=== PATIENT | female | born 1940 | race Caucasian/White ===

== ENCOUNTER 2020-07-17 01:11 | Outpatient (CLI) | payer MEDICARE, SELFPAY ==
[2020-07-18 14:16] LABS: SARS-CoV-2 RNA PCR Negative
== END 2020-07-17 01:12 | disposition home or self-care (01) ==
LOC: ANHCOVIDDT 01:11
PROVIDERS: PCP Family Medicine; Visit Provider Internal Medicine Gastroenterology
DX: Z01.818 Encounter for other preprocedural examination (principal); Z20.828 Contact with and (suspected) exposure to other viral communicable diseases
CPT/HCPCS: 87635; C9803; U0003

== ENCOUNTER 2020-07-20 00:50 | Day surgery (SDC) | payer MEDICARE, SELFPAY ==
[2020-07-16 13:56] VITALS: BMI 26.6
--- NOTE | 2020-07-20 11:38 | P.PNAN_ITS ---
Anes - Initial Pre Proc Eval Procedure: Operation Date: 07/20/20 12:45 Proposed Procedures p Esophagogastroduodenoscopy & Screening Colonoscopy - Trenton Casanova MD Date/Time: 07/20/20 11:38 Surgeon: Trenton Salazar MD Pre Op Diagnosis: Dysphagia/ Neoplasm Screening Patient Data Age: 79 Gender: F Height: 5 ft 5 in Weight: 72.7 kg Allergies Allergy/AdvReac Type Severity Reaction Status Date / Time No Known Allergies Allergy Verified 06/17/20 12:34 Home Medications Medication Instructions Recorded Confirmed Type amitriptyline 25 mg tablet 25 mg PO .At Bedtime #60 tablet 12/16/19 07/16/20 Rx losartan 50 mg tablet 50 mg PO DAILY #90 tablet 03/01/20 07/16/20 Rx peg 3350-electrolytes 236 240 ml PO Q10M #4000 ml 06/17/20 Rx gram-22.74 gram-6.74 gram-5.86 gram solution calcium carbonate-vitamin D3 1 tablet PO DAILY 07/16/20 07/16/20 History [Caltrate 600 plus D] mv-mn-folic ac-vit K-herb 289 1 tablet PO DAILY 07/16/20 07/16/20 History [Alive Once Daily Women 50 Plus] Patient hx anesthesia problems: none Family hx anesthesia problems: none PMFSH Past Medical History Medical History (System 06/17/20 @ 12:34 by Yovana Cunningham) Chronic renal failure, stage 3 (moderate) Encounter for colonoscopy due to history of colonic polyp Hiatal hernia Hypertension Peripheral neuropathy Surgical History Surgical History (System 06/17/20 @ 12:34 by Yovana Cunningham) History of hysterectomy 05-02-2017 History of left knee surgery 01-12-2015 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 Family History Family History Father Diabetes mellitus Lung cancer Mother Acute myocardial infarction Social History Social History (System 06/17/20 @ 12:34 by Yovana Cunningham) Smoking status: Never smoker Alcohol intake: never Substance use: never Substance use type: does not use Living arrangements: alone Spiritual care concerns: No Anes - Eval Final PreProcedure Day of Procedure 11/24/20 11:38 Patient weight: overweight Heart: regular rate and rhythm Lungs: clear to auscultation Airway: Mallampati scale class II Neurological: alert and oriented ASA classification: III Emergent: no Anesthetic plan: proceed Anesthesia type and monitoring: general GIVS and standard monitoring Informed Consent: The patient's anesthetic plan and its attendant risks and benefits were discussed with the patient/family/POA. Questions were solicited and answers provided to the satisfaction of the patient/family/POA.
[2020-07-20 11:54] VITALS: BP 132/68; PULSE 80; RESP 20; TEMP 36.2; O2SAT 97; BMI 27.6
[2020-07-20] MEDS: LACTATED RINGERS 1,000 ML 150 ML IV CONT (12:01)
--- NOTE | 2020-07-20 12:06 | PM.HPGS ---
History of Present Illness History of Present Illness Consent: Risks, benefits, and alternatives have been discussed and questions answered. Patient agrees to proceed with procedure. Chief complaint: Dysphagia/ Neoplasm Screening Narrative: Berkley Wagoner is a 79 year old female with dysphagia to solids, also colon polyp 5 years ago. Review of Systems Constitutional: Constitutional: Denies headache(s) and Denies weakness Eyes: Eyes: Denies blurry vision ENT: Reports Normal hearing present, Denies headache(s) and Denies neck pain Cardiovascular: Cardiovascular: Denies chest pain and Denies dyspnea Respiratory: Respiratory: Denies dyspnea Gastrointestinal: Gastrointestinal: Reports no additional gastrointestinal complaints Genitourinary: Genitourinary: Denies dysuria Musculoskeletal: Musculoskeletal: Denies neck pain Integumentary/Breasts: Skin/Breast: Denies dry skin Neurologic: Reports Normal hearing present, Denies headache(s) and Denies weakness Psychiatric: Psychiatric: Denies anxiety Endocrine: Endocrine: Denies change in body appearance Hematologic/Lymphatic: Hematologic/Lymphatic: Denies easy bleeding Allergic/Immunologic: Allergic/Immunologic: Denies urticaria PMF Past Medical History Medical History (Updated 07/20/20 @ 12:06 by Trenton Salazar MD) Chronic renal failure, stage 3 (moderate) Dysphagia Encounter for colonoscopy due to history of colonic polyp Hiatal hernia Hypertension Peripheral neuropathy Surgical History Surgical History (System 06/17/20 @ 12:34 by Yovana Cunningham) History of hysterectomy 05-02-2017 History of left knee surgery 01-12-2015 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 Family History Family History Father Diabetes mellitus Lung cancer Mother Acute myocardial infarction Social History Social History (System 06/17/20 @ 12:34 by Yovana Cunningham) Smoking status: Never smoker Alcohol intake: never Substance use: never Substance use type: does not use Living arrangements: alone Spiritual care concerns: No Meds Home Medications and Allergies Home Medications Medication Instructions Recorded Confirmed Type amitriptyline 25 mg tablet 25 mg PO .At Bedtime #60 tablet 12/16/19 07/16/20 Rx losartan 50 mg tablet 50 mg PO DAILY #90 tablet 03/01/20 07/16/20 Rx peg 3350-electrolytes 236 240 ml PO Q10M #4000 ml 06/17/20 Rx gram-22.74 gram-6.74 gram-5.86 gram solution calcium carbonate-vitamin D3 1 tablet PO DAILY 07/16/20 07/16/20 History [Caltrate 600 plus D] mv-mn-folic ac-vit K-herb 289 1 tablet PO DAILY 07/16/20 07/16/20 History [Alive Once Daily Women 50 Plus] Allergies Allergy/AdvReac Type Severity Reaction Status Date / Time No Known Allergies Allergy Verified 07/20/20 11:53 Vital Signs Vital Signs - 24 hr 07/20/20 11:54 Temperature 97.1 F L Pulse Rate 80 Respiratory Rate 20 Blood Pressure 132/68 Pulse Oximetry 97 Exam Const: General: comfortable and no acute distress HENMT: General nose exam: Normal nares present Eyes: General: appearance normal, both eyes and all related structures Neck: Neck: no JVD Resp: Auscultation: clear to auscultation bilaterally Cardio: Rate: regular rate Rhythm: regular rhythm GI: Inspection: non-distended GI Palp: Yes Soft to palpation Skin: General skin exam: normal color Neuro: General: gait normal Speech: normal speech Extrem: General: normal to inspection Psych: Mental Status: mental status grossly normal Assessment and Plan Assessment and plan (1) Dysphagia: Code(s): R13.10 - Dysphagia, unspecified Status: Acute Assessment and Plan: will proceed with egd and possible dilation (2) Encounter for colonoscopy due to history of colonic polyp: Code(s): Z12.11 - Encounter for screening for sabas
[2020-07-20] MEDS: BENZOCAINE (*SP) 60 ML SPRAY CAN (HURRICAINE) 1 SPRAY MUCOUS MEM (12:08)
[2020-07-20 12:48] VITALS: BP 101/66; PULSE 78; RESP 24; O2SAT 94
[2020-07-20 12:58] VITALS: BP 105/56; PULSE 62; RESP 16; O2SAT 94
[2020-07-20 13:08] VITALS: BP 113/72; PULSE 60; RESP 18; O2SAT 95
[2020-07-20 13:18] VITALS: BP 124/79; PULSE 62; RESP 18; O2SAT 98
== END 2020-07-20 13:40 | disposition home or self-care (01) ==
PROVIDERS: PCP Family Medicine; Visit Provider Internal Medicine Gastroenterology
PROC: 0DJ08ZZ Inspection of Upper Intestinal Tract, Via Natural or Artificial Opening Endoscopic (ICD-10-PCS; CPT 43235; principal; 2020-07-20 12:45)
DX: Z12.11 Encounter for screening for malignant neoplasm of colon (principal); R13.10 Dysphagia, unspecified; K63.5 Polyp of colon; K29.50 Unspecified chronic gastritis without bleeding; K62.3 Rectal prolapse; K57.30 Diverticulosis of large intestine without perforation or abscess without bleeding; K22.2 Esophageal obstruction; K44.9 Diaphragmatic hernia without obstruction or gangrene; I12.9 Hypertensive chronic kidney disease with stage 1 through stage 4 chronic kidney disease, or unspecified chronic kidney disease; N18.30 Chronic kidney disease, stage 3 unspecified; G62.9 Polyneuropathy, unspecified; Z96.651 Presence of right artificial knee joint
CPT/HCPCS: 45385; 43239; 88305; C9803; J2704; J7120; U0003

== ENCOUNTER 2020-10-19 11:08 | Outpatient (NON) | payer MEDICARE, SELFPAY | END 2020-10-19 11:09 | PROVIDERS: PCP Nurse Practitioner Family; Visit Provider Nurse Practitioner Family | DX: R32 Unspecified urinary incontinence (principal) | CPT/HCPCS: 87077; 87086; 87088; 87186 ==

== ENCOUNTER 2020-12-01 09:21 | Outpatient (CLI) | payer MEDICARE, SELFPAY ==
--- NOTE | ~2020-12-01 | US_ITS ---
EXAMINATION: US venous doppler [facility] DATE: 12/01/2020 10:17 INDICATION: Lower limb pain. TECHNIQUE: Grayscale ultrasound images without and with compression and Doppler ultrasound images of the bilateral lower extremity veins were obtained. COMPARISON: None. FINDINGS: The visualized portions of right common femoral vein, profunda (deep) femoral vein, femoral vein, pop liteal vein, peroneal veins, posterior tibial veins, and greater saphenous vein outflow are patent. The visualized portions of left common femoral vein, profunda femoral vein, femoral vein, popliteal v ein, peroneal veins, posterior tibial veins, and greater saphenous vein outflow are patent. IMPRESSION: 1. No deep venous thrombosis. Reviewed, dictated and finalized at location A.
== END 2020-12-01 09:22 | disposition home or self-care (01) ==
LOC: CHSIMG 09:23
PROVIDERS: PCP Family Medicine; Visit Provider Family Medicine
DX: M79.661 Pain in right lower leg (principal); M79.662 Pain in left lower leg
CPT/HCPCS: 93970

== ENCOUNTER 2020-12-16 11:26 | Outpatient (CLI) | payer MEDICARE, SELFPAY ==
[2020-12-16 13:00] LABS: Alanine Aminotransferase 75 U/L (14-59); Albumin Level 3.3 g/dL (3.4-5.0); Alkaline Phosphatase 99 U/L (46-116); Anion Gap 7 mmol/L (8-16); Aspartate Amino Transferase 28 U/L (15-37); Bilirubin,Total 0.5 mg/dL (0.00-1.00); Blood Urea Nitrogen 23 mg/dL (7-18); Carbon Dioxide 30 mmol/L (21-32); Chloride 107 mmol/L (98-108); Estimated Glomerular Filt Rate 45; Glucose 90 mg/dL (70-99); Osmolality Calculated 301 mOsm/kg (285-295); Potassium 4.1 mmol/L (3.5-5.1); Sodium 144 mmol/L (136-145); Total Protein 6.7 g/dL (6.4-8.2)
== END 2020-12-16 11:27 | disposition home or self-care (01) ==
LOC: CHSLAB 11:28
PROVIDERS: PCP Nurse Practitioner Family; Visit Provider Nurse Practitioner Family
DX: N18.30 Chronic kidney disease, stage 3 unspecified (principal)
CPT/HCPCS: 36415; 80053

== ENCOUNTER 2021-02-07 10:45 | Outpatient (CLI) | payer MEDICARE, SELFPAY ==
--- NOTE | 2021-02-07 10:53 | ECG_ITS ---
Measurements Intervals [place] Rate: 51 P: 54 IN: 244 QRS: 51 QRSD: 131 T: 23 QT: 456 QTc: 422 Interpretive Statements SINUS BRADYCARDIA WITH SINUS ARRHYTHMIA WITH FIRST DEGREE AV BLOCK RIGHT BUNDLE BRANCH BLOCK BASELINE WANDER- V6 ABNORMAL ECG Electronically Signed On 02-07-2021 11:46:53 CDT by Rudi Hanna D.O.
[2021-02-07 10:58] LABS: Basophils Absolute Auto 0.06 K/mm3 (0.00-0.10); Basophils Percent Auto 0.9 % (0.0-1.0); Eosinophils Absolute Auto 0.41 K/mm3 (0.02-0.50); Eosinophils Percent Auto 6.3 % (1.0-6.0); Hematocrit 39.8 % (35.0-42.0); Hemoglobin 13.1 g/dL (11.7-13.8); Immature Granulocyte Absolute 0.02 K/mm3 (0.00-0.00); Immature Granulocyte Percent A 0.3 % (0.0-0.0); Lymphocytes Absolute Auto 0.65 K/mm3 (1.10-4.50); Mean Corpuscular HGB Conc 32.9 g/dL (32.0-36.0); Mean Corpuscular Hemoglobin 28.2 pg (27.0-31.0); Mean Corpuscular Volume 85.8 fL (78.0-102.0); Mean Platelet Volume 8.8 fl (9.2-11.8); Monocytes Absolute Auto 0.41 K/mm3 (0.10-0.90); Monocytes Percent Auto 6.3 % (2.0-11.0); Neutrophils Absolute Auto 4.9 K/mm3 (1.7-7.2); Neutrophils Percent Auto 76.2 % (50.0-70.0); Platelet Count Result 267 K/mm3 (150-420); Red Blood Count 4.64 M/mm3 (4.20-5.40); Red Cell Distribution Width 12.9 % (11.6-14.4); White Blood Count 6.5 K/mm3 (4.8-10.8)
[2021-02-07 11:22] LABS: Troponin I 52.3 ng/L (0.00-60.4)
[2021-02-07 11:23] LABS: Alanine Aminotransferase 20 U/L (14-59); Albumin Level 3.6 g/dL (3.4-5.0); Alkaline Phosphatase 104 U/L (46-116); Anion Gap 9 mmol/L (8-16); Aspartate Amino Transferase 18 U/L (15-37); Bilirubin,Total 0.7 mg/dL (0.00-1.00); Blood Urea Nitrogen 26 mg/dL (7-18); Calcium 8.8 mg/dL (8.5-10.1); Carbon Dioxide 27 mmol/L (21-32); Chloride 107 mmol/L (98-108); Estimated Glomerular Filt Rate 43; Glucose 95 mg/dL (70-99); Osmolality Calculated 300 mOsm/kg (285-295); Potassium 4.4 mmol/L (3.5-5.1); Sodium 143 mmol/L (136-145)
== END 2021-02-07 10:46 | disposition home or self-care (01) ==
LOC: CHSCARD 10:48
PROVIDERS: PCP Nurse Practitioner Family; Visit Provider Nurse Practitioner Family
DX: R07.9 Chest pain, unspecified (principal)
CPT/HCPCS: 36415; 80053; 82553; 84484; 85025; 93005

== ENCOUNTER 2021-02-10 12:25 | Outpatient (CLI) | payer MEDICARE, SELFPAY ==
--- NOTE | ~2021-02-10 | US_ITS ---
US arterial ankle brachial ind INDICATION: Hypertension. TECHNIQUE: Segmental pressures and plethysmographic and Doppler waveforms of the brachial and lower e xtremity arteries were obtained. COMPARISON: None. FINDINGS: Right and left brachial artery pressures of 151 mm Hg and 145 mm Hg, respectively, are concordant (no rmal difference <= 30 mmHg). The right ankle-brachial index (KAEL) is 1.07 (normal >= 0.9-1.0). The right great toe-brachial index (TBI) is 0.61 (normal >= 0.60). The left KAEL is 1.25. The left TBI is 0.63. IMPRESSION: 1. Normal bilateral ankle and toe brachial indices. Reviewed, dictated and finalized at location A.
== END 2021-02-10 12:26 | disposition home or self-care (01) ==
PROVIDERS: PCP Nurse Practitioner Family; Visit Provider Nurse Practitioner Family
DX: R09.89 Other specified symptoms and signs involving the circulatory and respiratory systems (principal)
CPT/HCPCS: 93922

== ENCOUNTER 2021-03-01 14:30 | Outpatient (RCR) | payer MEDICARE, SELFPAY ==
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
--- NOTE | 2021-03-01 15:20 | PTOPEVAL ---
PHYSICAL THERAPY DISCHARGE SUMMARY Thank you for referring Berkley Wagoner to [facility] [place].? Berkley has been seen x 5 visits in PT. She has met all goals set and ready for d/c from PT to HEP. I agree with Berkley's discharge from PT. Referring Physician Date Admitting Provider: Attending Provider: Colin Osborne Referring Provider: Therapy Assessment Status Assessment Status Assessment Status Discharge Evaluation Information Problem Diagnosis incontinence of feces Subjective Information Berkley reports that she is Query Text:As Reported By Patient/ doing so well - that there Family has been a big difference with urinary and fecal control since initiating PT. She reports only getting up 1x/ night for urination. If she is staying home - she goes without an urinary incontinence pad. She has been able to utilize urge strategies to prevent urge incontinence. Pain Assessment Timing of Pain Assessment Timing of Pain Assessment Assessment Self Report Self Report Pain Level 0 Pelvic Health Evaluation Pelvic Floor Assessment Permission Received for External/ only did external observation Internal Perineal Exam this date Sustained Levator Ani Strength at least 3/5 - able to hold x 10 counts or greater x 10 reps Quick Levator Ani Contraction in 15 14 Seconds Additional Comments independent with HEP PT Clinical Summary Clinical Summary Protocol: PTEVCODE PT Clinical Summary Urinary Distress Inventory 6 - 5.6% Colorectal-Anal Distress Inventory 8 - 8.3% Berkley has met all goals set in PT. She has progressed with her exercise level and is not able to use abdominal resistance with pelvic floor contraction. She is only getting up 1 time/night for urination, no longer using a pad at home but still wears one going out - just in case, and able to perform urge strategies to delay urination until she gets to the toilet. She is ready for d/c from PT to HEP.
== END 2021-03-02 13:03 | disposition home or self-care (01) ==
LOC: ANHPT 14:30
PROVIDERS: PCP Nurse Practitioner Family
DX: R15.9 Full incontinence of feces (principal)
CPT/HCPCS: 97110; 97162

== ENCOUNTER 2021-06-09 12:16 | Outpatient (CLI) | payer MEDICARE, SELFPAY ==
--- NOTE | ~2021-06-09 | XR_ITS ---
XR_CERV2-3V_CR DATE: 06/09/2021 13:38 INDICATION: Neck pain TECHNIQUE: AP, open-mouth, odontoid and lateral views COMPARISON: None FINDINGS: There is diffuse osteopenia. There is reversal of cervical curvature. There is 2.5 mm anterolisthesis at C2-3 and mild degenerative disc disease. There is severe degenerative disc disease and 2 mm retrolisthesis at C3-4. There is moderately severe degenerative disc disease at C4-5, C5-6 and C6-7. C1 and C2 are normally aligned and the odontoid process is intact. No fracture or dislocation or lock ed facet or prevertebral soft tissue swelling. There is extensive degenerative change of the apophyseal and uncovertebral joints throughout the cerv ical spine. IMPRESSION: Reversal of cervical curvature 2.5 mm anterolisthesis at C2-3 2 mm retrolisthesis at C3-4 Mild degenerative disc disease at C2-3 Severe degenerative disc disease at C3-4 Moderately severe degenerative disc disease at C4-5, C5-6 and C6-7 Extensive degenerative changes apophyseal joints and uncovertebral joints Osteopenia Reviewed, dictated and finalized at Location A. Reviewed, dictated and finalized at location B.
--- NOTE | ~2021-06-09 | XR_ITS ---
XR shoulder RT min 2V DATE: 06/09/2021 13:38 INDICATION: Right shoulder pain after fall. Limited range of motion. TECHNIQUE: 4 views COMPARISON: None FINDINGS: There is diffuse osteopenia. No fracture or dislocation, periosteal reaction or bone destruction or abnormal soft tissue calcifica tion of the right shoulder. There is mild dextroscoliosis of the thoracic spine. IMPRESSION: Diffuse osteopenia No fracture or dislocation of the right shoulder Reviewed, dictated and finalized at location B.
== END 2021-06-09 12:17 | disposition home or self-care (01) ==
LOC: CHSIMG 12:19
PROVIDERS: PCP Nurse Practitioner Family; Visit Provider Nurse Practitioner Family
DX: M25.511 Pain in right shoulder (principal); M54.2 Cervicalgia
CPT/HCPCS: 72040; 73030

== ENCOUNTER 2022-03-28 16:10 | Outpatient (NON) | payer MEDICARE, SELFPAY | END 2022-03-28 16:11 | disposition home or self-care (01) | LOC: CHSLAB 16:12 | PROVIDERS: Visit Provider Nurse Practitioner Family | DX: L03.116 Cellulitis of left lower limb (principal) | CPT/HCPCS: 87070; 87147; 87186; 87205 ==

== ENCOUNTER 2022-03-30 13:06 | Outpatient (CLI) | payer MEDICARE, SELFPAY ==
--- NOTE | ~2022-03-30 | US_ITS ---
EXAMINATION: US art doppler w press LE BI DATE: 03/30/2022 14:08 INDICATION: Peripheral vascular disease TECHNIQUE: Segmental pressures and plethysmographic and Doppler waveforms of the brachial and lower e xtremity arteries were obtained. COMPARISON: 02/10/2021 FINDINGS: Right and left brachial artery pressures of 128 mm Hg and 129 mm Hg, respectively, are concordant (no rmal difference <= 30 mmHg). The right ankle-brachial index (KAEL) is 1.17 (normal >= 0.9-1). The right great toe-brachial index (T BI) is 0.65 (normal >= 0.6-0.8). Arterial waveforms are triphasic at the right superficial femoral, p opliteal arteries and biphasic at the right dorsalis pedis artery with brisk systolic upstrokes throu ghout. Measured waveforms at the right femoral and posterior tibial artery are markedly attenuated li miting assessment. The left KAEL is 1.23. The left TBI is 0.70. Arterial waveforms are triphasic at the left femoral, sup erficial femoral, popliteal and dorsalis pedis arteries and biphasic at the left posterior tibial art remberto with brisk systolic upstrokes throughout. IMPRESSION: 1. Normal ABIs and TBI's bilaterally. No significant arterial occlusive disease. Reviewed, dictated and finalized at location A. IMPRESSION: 1. Normal ABIs and TBI's bilaterally. No significant arterial occlusive disease .
== END 2022-03-30 13:07 | disposition home or self-care (01) ==
LOC: CHSIMG 13:07
PROVIDERS: PCP Nurse Practitioner Family; Visit Provider Nurse Practitioner Family
DX: I73.9 Peripheral vascular disease, unspecified (principal)
CPT/HCPCS: 93923

== ENCOUNTER 2022-10-17 15:48 | Emergency (ER) | payer MEDICARE, SELFPAY ==
[2022-10-17] VITALS (13 sets, daily range): BP systolic 143–193; BP diastolic 67–90; PULSE 50–84; RESP 16–23; TEMP 36.6–36.9; O2SAT 94–100
--- NOTE | ~2022-10-17 | XR_ITS ---
EXAM: XR elbow RT min 3V DATE: 10/17/2022 16:59 HISTORY: Status post fall with right posterior elbow pain. . COMPARISON: None available. FINDINGS: Decreased mineralization. Posterior and lateral dislocation of the ulna and radius. Flatte ailyn/irregularity of the lateral aspect of the radial head. Several ossific fragments project posteri or to the distal humerus which may represent fragments. IMPRESSION: Posterior lateral right elbow dislocation. Fracture of the lateral aspect of the right ra dial head. Reviewed, dictated and finalized at location K. RCHARGE REPAIR SUPERVISOR IMPRESSION: Posterior lateral right elbow dislocation. Fracture of the lateral aspect of the right radial head.
--- NOTE | ~2022-10-17 | XR_ITS ---
EXAM: XR elbow RT 2V DATE: 10/17/2022 17:57 HISTORY: Post reduction of right elbow. . COMPARISON: None available. FINDINGS: Limited views of the right elbow with obliquely positioned lateral and oblique views and n o true frontal view. Evaluation for subtle fractures limited. Large volume joint fluid. Soft tissue s welling about the elbow IMPRESSION: Limited evaluation due to nonstandard positioning. The proximal ulna and radial head appe ar to be anatomically aligned. Large elbow joint effusion and surrounding soft tissue swelling. Consi june repeat examination when clinically feasible. Reviewed, dictated and finalized at location K. PRODUCTION ARTIST IMPRESSION: Limited evaluation due to nonstandard positioning. The proximal uln a and radial head appear to be anatomically aligned. Large elbow joint effusion and surrounding soft tissue swelling. Consider repeat examination when clinica lly feasible.
--- NOTE | 2022-10-17 15:54 | ED.FALL ---
HPI - Fall General Chief Complaint: Extremity Injury, Upper Stated Complaint: ambulance Time Seen by Provider: 10/17/22 15:54 Source: patient and RN notes reviewed Mode of arrival: EMS Limitations: no limitations History of Present Illness HPI Narrative: patient states she was outside doing some yd work when she slipped and fell in the rocks. She fell onto her right elbow. She says there is severe pain. EMS noted what appeared to be some deformity and splinted her right forearm up to her elbow. Movement or palpation makes it worse immobilized makes it better. She is given 2 mg of morphine in route for pain control. complaint: fall Onset (ago): hour(s) (1.5) Fall from: standing Fall witnessed: no Place fall occurred: home ( outdoors) Loss of consciousness: none Prolonged down time: no Symptoms prior to fall: none Context: tripped/slipped Location of injury - extremities: Right: elbow Severity: severe Quality: sharp and stabbing Associated symptoms (after fall): denies Related Data Home Medications Medication Instructions Recorded Confirmed multivitamin with minerals 1 tablet PO DAILY 07/19/21 10/17/22 (Hair,Skin and Nails tablet) Allergies Allergy/AdvReac Type Severity Reaction Status Date / Time No Known Allergies Allergy Verified 10/17/22 15:57 Review of Systems Review of Systems: All systems reviewed & are unremarkable except as noted in HPI and below PMFSH Past Medical History Medical History Chronic renal failure, stage 3 (moderate) Dysphagia Encounter for colonoscopy due to history of colonic polyp Hiatal hernia Hypertension Muscle strain of right lower extremity Peripheral neuropathy Rectal prolapse Surgical History Surgical History History of hysterectomy 05-02-2017 History of left knee surgery 01-12-2015 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 Family History Family History Father Diabetes mellitus Lung cancer Mother Acute myocardial infarction Social History Social History Smoking status: Never smoker Alcohol intake: never Substance use: never Substance use type: does not use Living arrangements: alone Occupation/Education: retired Spiritual care concerns: No Exam Const: General: healthy appearing, no acute distress and alert Nutritional Appearance: well nourished Orientation/consciousness: patient oriented x3 Limitations: no limitations HENMT: Head: normal to inspection Ears: external ears normal Eyes: Conjunctivae: conjunctivae normal Pupils: Equal, round and reactive pupils present EOM: EOMs intact bilaterally Neck: Neck: normal visual inspection Resp: Effort & Inspection: normal respiratory effort Auscultation: clear to auscultation bilaterally Cardio: Rate: regular rate Rhythm: regular rhythm GI: GI Palp: Yes Soft to palpation and No Tenderness to palpation present (GI) Auscultation: normal bowel sounds Back/Spine/Pelvis: Cervical Spine: cervical ROM normal Thoracic/Lumbar Spine: thoraco-lumbar ROM normal Skin: General skin exam: normal color Rashes: no rashes Neuro: General: patient oriented x3, moves all extremities, no focal motor deficits and CN's II-XI intact bilaterally Speech: normal speech Gait exam (Neuro): Normal gait present Extrem: General: normal exam except as noted and no clubbing, cyanosis or edema Right upper extremity: shoulder/upper arm abnormal to inspection, tenderness ( distal humerus) and deformity ( distal humerus) and elbow/forearm abnormal ROM held in an abnormal fashion in flexion and in pronation; no tenderness Psych: Mental Status: mental status grossly normal Affect: normal affect Attitude: cooperative Course Vital Signs Vital signs: Vital S
[2022-10-17] MEDS: MIDAZOLAM HCL (*CRX) 2 MG/2 ML VIAL 1 MG IV PUSH (17:27)
[2022-10-17] MEDS: ETOMIDATE 20 MG/10 ML AMPUL 10 MG IV PUSH (17:32)
--- NOTE | 2022-10-17 18:19 | PC.NURSE ---
long arm posterior gutter ocl and sling applied. pt dewayne well. neuro-circ checks to distal right hand wnl. arom noted to right fingers x5. ice in place over right elbow.
== END 2022-10-17 19:45 | disposition home or self-care (01) ==
PROVIDERS: Emergency Provider Emergency Medicine; PCP Nurse Practitioner Family
DX: S53.104A Unspecified dislocation of right ulnohumeral joint, initial encounter (principal); S52.124A Nondisplaced fracture of head of right radius, initial encounter for closed fracture; I12.9 Hypertensive chronic kidney disease with stage 1 through stage 4 chronic kidney disease, or unspecified chronic kidney disease; N18.30 Chronic kidney disease, stage 3 unspecified; W01.0XXA Fall on same level from slipping, tripping and stumbling without subsequent striking against object, initial encounter; Y92.009 Unspecified place in unspecified non-institutional (private) residence as the place of occurrence of the external cause
CPT/HCPCS: 24600; 73070; 73080; 99285; A4565; J2250

== ENCOUNTER 2023-03-05 08:50 | Emergency (ER) | payer MEDICARE, SELFPAY ==
--- NOTE | ~2023-03-05 | XR_ITS ---
AP view of the pelvis and AP and lateral views of the right hip Clinical history: Pain Findings: There is a subcapital fracture of the proximal right femoral neck, with mild displacement a nd increased varus angulation. Left hip joint space is preserved. There is mild degenerative change o f the right hip joint. Soft tissues are unremarkable. Impression: Subcapital fracture of the proximal right femoral neck with displacement and varus angulation. Reviewed, dictated and finalized at location M. Impression: Subcapital fracture of the proximal right femoral neck with displacement and va eileen angulation.
--- NOTE | ~2023-03-05 | XR_ITS ---
EXAMINATION: XR chest 1V portable INDICATION: Pain after fall TECHNIQUE: Portable AP chest at 0933 hours COMPARISON: 09/08/2014 FINDINGS: The lungs are free of acute opacities. No pleural effusion or pneumothorax. There is a mode rate-sized sliding hernia. The heart size is normal. IMPRESSION: 1. No acute cardiopulmonary abnormality. Reviewed, dictated and finalized at location B.
[2023-03-05 08:50] VITALS: BP 164/79; PULSE 55; RESP 14; TEMP 36.8; O2SAT 92
[2023-03-05 09:00] VITALS: BP 157/71; PULSE 54; RESP 18; O2SAT 94
--- NOTE | 2023-03-05 09:02 | ED.FALL ---
HPI - Fall General Chief Complaint: Fall Stated Complaint: right hip pain Time Seen by Provider: 03/05/23 09:01 History of Present Illness HPI Narrative: 82-year-old female patient is brought to the ER by EMS after she had a ground level fall as she was walking up dose for her usual morning walk. Patient states that she tripped over a patch of grass and landed on the concrete on right side. She does have pain in the right hip. She states that she was unable to get up on her knees since she has had both knees replaced in the past. She also scraped her right elbow. She denies any specific pain in the right elbow and has no difficulty moving it around. She denies hitting her head. She denies any other injuries at this time. Patient is not on any blood thinners. Related Data Home Medications Medication Instructions Recorded Confirmed multivitamin with minerals 1 tablet PO DAILY 07/19/21 03/05/23 (Hair,Skin and Nails tablet) Allergies Allergy/AdvReac Type Severity Reaction Status Date / Time No Known Allergies Allergy Verified 03/05/23 09:01 Review of Systems Review of Systems: All systems reviewed & are unremarkable except as noted in HPI and below PMFSH Past Medical History Medical History Chronic renal failure, stage 3 (moderate) Dysphagia Encounter for colonoscopy due to history of colonic polyp Hiatal hernia Hypertension Muscle strain of right lower extremity Peripheral neuropathy Rectal prolapse Surgical History Surgical History History of hysterectomy 05-02-2017 History of left knee surgery 01-12-2015 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 She has received 2 mg of morphine per EMS for pain control prior to arrival here. Vital signs are noted to be stable. He does have elevated blood pressure on initial triage. HEENT: head is atraumatic. Pupils are midsize equal and reactive to light. EOMs are intact. Ear nose throat are normal. No facial injuries are noted. Neck is supple. Breath sounds are audible bilaterally. No chest wall tenderness. Heart tones are regular. Abdomen is soft and nontender. There is no tenderness on pelvic rock however the patient is holding her right hip flexed and any active or passive range of motion is extremely painful. Distal neurovascular status in the right lower extremity is normal. Patient has superficial abrasions on the right elbow without any bony deformity or swelling. Range of motion at the elbow is in full. Distal neurovascular status is normal. Skin is warm and dry skin color is normal. Neurologic examination is grossly normal. Motor and affect are normal. Course Course Emergency Course: X-ray of the right hip and pelvis shows fracture of the femoral neck. Chest x-ray is normal. Pelvis is normal. The patient is aware and would prefer to go to [place] to see Dr. Horton since he did her knee replacement in the past. The RN has connected with [facility] and Dr. Horton has accepted the patient. in the meantime the patient has been given pain control with morphine 2 mg and Zofran 4 mg and she is resting comfortably. She will receive another dose of morphine just prior to transfer. Vital Signs Vital signs: Vital Signs Temperature 36.8 C 03/05/23 08:5
--- NOTE | 2023-03-05 09:19 | PC.NURSE ---
RT ELBOW CLEANED AND DRESSED WITHOUT DIFFICULTY. PT TOLERATED WELL. PT IS TEXTING ON CELL PRIOR TO TREATMENT WITHOUT DIFFICULTY. WILL CONTINUE TO MONITOR.
[2023-03-05] MEDS: ONDANSETRON INJ 4 MG/2 ML VIAL IV PUSH (09:35)
[2023-03-05] MEDS: MORPHINE SULFATE (*CRX) 2 MG/ML INJ IV PUSH (09:35)
[2023-03-05] MEDS: TETANUS,DIPHTHERIA,AC PERTUSSIS ADULT 0.5 ML (ADACEL) IM (09:35)
--- NOTE | 2023-03-05 09:40 | PC.NURSE ---
PT MEDICATED WITHOUT DIFFICULTY, DAUGHTER HAS ARRIVED AT BEDSIDE. PT REPORTS PAIN WAS WORSE DURING XRAYS, STATES REMAINED AN 8/10 POST XRAY. WILL CONTINUE TO MONITOR. PT DENIES ANY NEEDS OR COMPLAINTS. WARM BLANKET AND EXTRA PILLOW PROVIDED. PT HAS PILLOW SPLINT TO RT HIP.
[2023-03-05 10:00] VITALS: BP 144/68; PULSE 52; RESP 18; O2SAT 92
--- NOTE | 2023-03-05 10:33 | PC.NURSE ---
PT LAST DRANK WHITE GRAPE JUICE AROUND 0630 THIS AM. LAST ATE AT 1700 LAST NIGHT.
[2023-03-05 11:00] VITALS: BP 157/85; PULSE 50; RESP 16; O2SAT 92
--- NOTE | 2023-03-05 11:07 | PC.NURSE ---
PT HAS BEEN ACCEPTED BY DR HILARIO TO [facility]. PT AND FAMILY ARE AWARE OF PLAN OF CARE. PT TO GO DIRECTLY TO OR UPON ARRIVAL. SPOKE WITH RN DALE WHO CONFIRMS ROOM STATUS. TO CALL FINANCIAL PLANNING ANALYST FOR REPORT AND ETA WHEN PT LEAVES PER DALE. RAD DISC AND REPORTS SENT WITH PT.
[2023-03-05] MEDS: SODIUM CHLORIDE 0.9% IV 1,000 ML 150 ML IV CONT (11:23)
--- NOTE | 2023-03-05 11:54 | PC.NURSE ---
BUSTER LATIF AT [facility] OR RETURNS CALL AND REPORT WAS PROVIDED.
--- OUTSIDE RECORDS SUMMARY | 2023-03-26 08:52 | XMS_ITS ---
Author Name Unknown Organization [facility] Address [facility] [place], [place] [id number] [place] [id number] Care Team Providers Care Corporation Officer Name Role Phone Sera Miller CAREER EDUCATION TEACHER Primary Care Provider [phone] Reason for Referral * (Routine) - Canceled Specialty Diagnoses / Procedures Referred By Tierraac t Referred To Contact Procedures PT Fracisco Starkey MD [address] [place] [address] Referral ID Status Reason Start Date Expiration Date V isits Requested Visits Authorized [id number] Canceled 03/05/2023 03/05/2024 1 1 * (Routine) - Canceled Specialty Diagnoses / Procedures Referred By Contac t Referred To Contact Procedures OT Fracisco Starkey MD [address] [place] [id number] Referral ID Status Reason Start Date Expiration Date V isits Requested Visits Authorized [id number] Canceled 03/05/2023 03/05/2024 1 1 Reason for Visit * Auth/Cert (Routine) Specialty Diagnoses / Procedures Referred By Contac t Referred To Contact Diagnoses Closed displaced fracture of right femoral neck (CMS/HCC) S72.001A Procedures RIGHT HIP PASQUALE ARTHROPLASTY Fracisco Horton MD [address] [place] [id number] Referral ID Status Reason S
== END 2023-03-05 11:33 | disposition short-term general hospital (02) ==
PROVIDERS: Emergency Provider Emergency Medicine; PCP Nurse Practitioner Family
DX: S72.011A Unspecified intracapsular fracture of right femur, initial encounter for closed fracture (principal); I12.9 Hypertensive chronic kidney disease with stage 1 through stage 4 chronic kidney disease, or unspecified chronic kidney disease; N18.30 Chronic kidney disease, stage 3 unspecified; Z23 Encounter for immunization; W01.0XXA Fall on same level from slipping, tripping and stumbling without subsequent striking against object, initial encounter
CPT/HCPCS: 71045; 73502; 90471; 90715; 96361; 96374; 96375; 99285; J2270; J2405; J7030

== ENCOUNTER 2023-03-12 13:49 | Outpatient (RCR) | payer MEDICARE, SELFPAY ==
--- NOTE | 2023-03-12 15:03 | OPREHPOC ---
Outpatient Therapy Plan of Care This is a Multidisciplinary Plan of Care that may contain components documented by all disciplines (PT, OT, and ST.) PT Problem 1 PT Problem #1 Knowledge Deficit PT Goal 1 Goal Patient to demonstrate independence with HEP Target Visit 6 PT Problem 2 PT Problem #2 Pain PT Goal 1 Goal Patient to report highest pain at 2/10 Target Visit 12 PT Problem 3 PT Problem #3 Impaired Range of Motion PT Goal 1 Goal 1. Patient to demonstrate 100 deg of R hip flexion to improve shoe donning 2. Patient to demonstrate 0-120 deg of R knee ROM to improve stair navigation Target Visit 12 PT Problem 4 PT Problem #4 Impaired Strength PT Goal 1 Goal Patient to demonstrate 5/5 strength of R LE to improve ability to ambulate without use of AD Target Visit 12 PT Problem 5 PT Problem #5 Impaired Functional Mobil PT Goal 1 Goal 1. Patient to report ability to ambulate 800' with 6 min walk test to return to community and house hold ambulation 2. Patient to demonstrate 20% improvement of LEFS Target Visit 12
--- NOTE | 2023-03-12 15:03 | PTOPEVAL1 ---
Assessment and note entered by Kelly Sunshine DPT Evaluation Information Assessment Status Evaluation Diagnosis R hip pain Onset 03/05/23 Subjective Information Patient reports on March 05 she was walking with a friend and stumbled and ended up falling. She reports an ambulance took her to [facility] where it was found she had a R hip fracture. She reports she had surgery in [place] that same day. She was sent home with HEP and no limitations . She reports she is walking with a walker now but prior was not using an AD. She reports difficulty with putting her tennis shoes on her R foot and completeing heavy house hold tasks. She reports she is retired but stays active with walking 3 miles a day. Reported Pain Level Pain Score 5: Self Report Assessment PT Clinical Summary Patient is a 82 year old female who presents to PT with R hip pain following R hip fracture and surgical procedure on 03/05/23. Patient demonstrates decreased R hip ROM, decreased R LE strength and impaired gait mechanincs impairing her ability to don and doff shoes as well as complete heavy house hold chores. She would benefit from skilled PT to address impairments and return to OF. Plan of Care Interventions Electrical Stimulation,Gait Training,Hot Pack/Cold Pack,Manual Therapy,Neuro Re-education,Patient/ Caregiver Educati,Therapeutic Activities, Therapeutic Exercise PT Services Indicated Yes Treatment Frequency and 2x weekly for 12 visits Duration These treatments will address the objective and functional deficits as defined above. The patient will be advanced safely and appropriately in order for the patient to progress towards his/her prior level of function. Additional exercises will be introduced and as well as a comprehensive home exercise program upon discharge, if needed, ?to ensure carryover of functional gains achieved in the clinic. This treatment plan has been reviewed and agreement upon by the patient.
--- NOTE | 2023-04-12 11:56 | OPREHPOC ---
Outpatient Therapy Plan of Care This is a Multidisciplinary Plan of Care that may contain components documented by all disciplines (PT, OT, and ST.) PT Problem 1 PT Problem #1 Knowledge Deficit PT Goal 1 Goal Patient to demonstrate independence with HEP Target Visit 6 Progress Met PT Problem 2 PT Problem #2 Pain PT Goal 1 Goal Patient to report highest pain at 2/10 Target Visit 12 Progress Met PT Problem 3 PT Problem #3 Impaired Range of Motion PT Goal 1 Goal 1. Patient to demonstrate 100 deg of R hip flexion to improve shoe donning 2. Patient to demonstrate 0-120 deg of R knee ROM to improve stair navigation Target Visit 12 Progress Partially Met Comment R knee flexion 118 deg PT Problem 4 PT Problem #4 Impaired Strength PT Goal 1 Goal Patient to demonstrate 5/5 strength of R LE to improve ability to ambulate without use of AD Target Visit 12 Progress Partially Met PT Problem 5 PT Problem #5 Impaired Functional Mobil PT Goal 1 Goal 1. Patient to report ability to ambulate 800' with 6 min walk test to return to community and house hold ambulation 2. Patient to demonstrate 20% improvement of LEFS Target Visit 12 Progress Partially Met Comment met for LEFS
--- NOTE | 2023-04-12 11:57 | PTOPDC ---
Assessment and note entered by Kelly Sunshine DPT Evaluation Information Assessment Status Evaluation Diagnosis R hip pain Onset 03/05/23 Subjective Information Patient reports she saw the MD on Sunday who was happy with her progress. Patient reports she has been able to return to heavy house hold tasks and has been able to put on her shoes with no difficulty. She also reports she has been able to navigate a flight of shiras with no difficulty. Reported Pain Level Pain Score 2: Self Report Assessment PT Clinical Summary Patient was seen for 10 visits of skilled PT with great progress made. She met or partially met all goals set during POC. Patient demonstrates improved LE strength, improved R LE ROM and improved gait. She reports improved ability to perform heavy house hold tasks, dress and ambulate to the post office. She is independent with HEP and is appropriate for DC at this time. Plan of Care PT Services Indicated No
== END 2023-04-12 10:21 | disposition home or self-care (01) ==
LOC: CHSPT 13:49
PROVIDERS: PCP Nurse Practitioner Family; Visit Provider Nurse Practitioner Family
DX: S72.001D Fracture of unspecified part of neck of right femur, subsequent encounter for closed fracture with routine healing (principal)
CPT/HCPCS: 97110; 97112; 97116; 97150; 97161; 97530; 97750

== ENCOUNTER 2023-04-23 13:35 | Outpatient (CLI) | payer MEDICARE, SELFPAY ==
[2023-04-23 13:49] LABS: Basophils Absolute Auto 0.06 K/mm3 (0.00-0.10); Basophils Percent Auto 0.8 % (0.0-1.0); Eosinophils Absolute Auto 0.19 K/mm3 (0.02-0.50); Eosinophils Percent Auto 2.6 % (1.0-6.0); Hematocrit 34.5 % (35.0-42.0); Hemoglobin 11.1 g/dL (11.7-13.8); Immature Granulocyte Absolute 0.03 K/mm3 (0.00-0.00); Immature Granulocyte Percent A 0.4 % (0.0-0.0); Lymphocytes Absolute Auto 0.72 K/mm3 (1.10-4.50); Lymphocytes Percent Auto 9.8 % (18.0-42.0); Mean Corpuscular HGB Conc 32.2 g/dL (32.0-36.0); Mean Corpuscular Hemoglobin 27.4 pg (27.0-31.0); Mean Corpuscular Volume 85.2 fL (78.0-102.0); Mean Platelet Volume 8.7 fl (9.2-11.8); Monocytes Absolute Auto 0.41 K/mm3 (0.10-0.90); Monocytes Percent Auto 5.6 % (2.0-11.0); Neutrophils Absolute Auto 5.9 K/mm3 (1.7-7.2); Neutrophils Percent Auto 80.8 % (50.0-70.0); Platelet Count Result 298 K/mm3 (150-420); Red Blood Count 4.05 M/mm3 (4.20-5.40); Red Cell Distribution Width 13.9 % (11.6-14.4); White Blood Count 7.3 K/mm3 (4.8-10.8)
[2023-04-23 14:38] LABS: Alanine Aminotransferase 15 U/L (14-59); Albumin Level 3.4 g/dL (3.4-5.0); Alkaline Phosphatase 112 U/L (46-116); Anion Gap 10 mmol/L (8-16); Aspartate Amino Transferase 12 U/L (15-37); Bilirubin,Total 0.6 mg/dL (0.00-1.00); Blood Urea Nitrogen 26 mg/dL (7-18); Calcium 8.8 mg/dL (8.5-10.1); Carbon Dioxide 27 mmol/L (21-32); Chloride 108 mmol/L (98-108); Estimated Glomerular Filt Rate 41; Free T4 Free Thyroxine 0.92 ng/dL (0.76-1.46); Glucose 167 mg/dL (70-99); Iron 31 ug/dL (50-170); Magnesium 1.9 mg/dL (1.8-2.4); Osmolality Calculated 308 mOsm/kg (285-295); Potassium 3.6 mmol/L (3.5-5.1); Sodium 145 mmol/L (136-145); Thyroid Stimulating Hormone 1.47 uIU/mL (0.36-3.74); Total Protein 6.7 g/dL (6.4-8.2)
[2023-04-23 14:47] LABS: Vitamin B12 > 2000 pg/mL (193-986)
[2023-04-24 16:23] LABS: Hemoglobin A1C 5.6 % (<5.7)
[2023-04-26 20:59] LABS: Vitamin D 25 Hydroxy 38 ng/mL (30-100)
== END 2023-04-23 13:36 | disposition home or self-care (01) ==
LOC: CHSLAB 13:38
PROVIDERS: PCP Nurse Practitioner Family; Visit Provider Nurse Practitioner Family
DX: R73.09 Other abnormal glucose (principal); Z79.899 Other long term (current) drug therapy; R53.83 Other fatigue; D64.9 Anemia, unspecified; N18.30 Chronic kidney disease, stage 3 unspecified
CPT/HCPCS: 36415; 80053; 82306; 82607; 83036; 83540; 83735; 84439; 84443; 85025

== ENCOUNTER 2023-05-04 09:39 | Outpatient (CLI) | payer MEDICARE, SELFPAY ==
[2023-05-04 09:56] VITALS: BMI 25.0
[2023-05-04 09:57] VITALS: BP 149/69; PULSE 60; RESP 14; TEMP 36.6; O2SAT 98
[2023-05-04] MEDS: IRON SUCROSE COMPLEX 300 MG in SODIUM CHLORIDE 0.9% IV 250 ML 125 MG IVPB (10:05)
--- NOTE | 2023-05-04 12:18 | PC.NURSE ---
Patient here for #1 of 3 Venofer IV infusions. Education given. No concerns voiced. IV Venofer administered. SEE MAR. Tolerated well. Will return 05/07/23 at 1000 for #2 of 3. Safe exit of hospital per self/ambulatory.
== END 2023-05-04 09:40 | disposition home or self-care (01) ==
LOC: CHSTREATRM 09:41
PROVIDERS: PCP Nurse Practitioner Family; Visit Provider Nurse Practitioner Family
DX: D50.9 Iron deficiency anemia, unspecified (principal)
CPT/HCPCS: 96365; 96366; J1756

== ENCOUNTER 2023-05-07 10:30 | Outpatient (CLI) | payer MEDICARE, SELFPAY ==
[2023-05-07 10:45] VITALS: BMI 24.2
--- NOTE | 2023-05-07 10:45 | PC.NURSE ---
presents for OP iron infusion, taken to room 203, call light given, pharmacy and dietary notified of arrival
[2023-05-07 11:00] VITALS: BP 140/72; PULSE 54; RESP 18; TEMP 36.7; O2SAT 95
[2023-05-07] MEDS: IRON SUCROSE COMPLEX 300 MG in SODIUM CHLORIDE 0.9% IV 250 ML 125 MG IVPB (11:14)
--- NOTE | 2023-05-07 13:15 | PC.NURSE ---
med infused, tolerated well, saline lock discontinued, ambulatory to home at 1320
== END 2023-05-07 10:31 | disposition home or self-care (01) ==
LOC: CHSTREATRM 10:36
PROVIDERS: PCP Nurse Practitioner Family; Visit Provider Nurse Practitioner Family
DX: D50.9 Iron deficiency anemia, unspecified (principal)
CPT/HCPCS: 96365; 96366; J1756; J7050

== ENCOUNTER 2023-05-10 14:14 | Outpatient (CLI) | payer MEDICARE, SELFPAY ==
[2023-05-10 14:40] VITALS: BP 125/65; PULSE 60; RESP 16; TEMP 36.8; O2SAT 97
--- NOTE | 2023-05-10 15:15 | PC.NURSE ---
Patient here for Venofer infusion. Patient reports she had her last infusion on 05/07/23, that evening she had some abdominal pain/diaphragm pain. Reports she had trouble taking a deep breath and it hurt to cough and that she was having so much pain she almost thought she needed to come to the ER. Reports pain was upper abdomen and went around to back. Pharmacist Etelvina consulted, and CONTACT CENTER PROFESSIONAL Sera Farooq consulted. Okayed to give this dose, run at 100 instead of 125ml/hr. Patient notified that if she starts to have any back,abdominal pain or SOB to notify nurse immediately and infusion will be stopped.
[2023-05-10] MEDS: IRON SUCROSE COMPLEX 300 MG in SODIUM CHLORIDE 0.9% IV 250 ML 100 MG IVPB (15:24)
--- NOTE | 2023-05-10 16:17 | PC.NURSE ---
Patient in chair watching TV. Denies pain or c/o .
--- NOTE | 2023-05-10 18:12 | PC.NURSE ---
Patient's IV therapy completed. Patient denies pain, dizziness. Patient states she feels good. Able to get out of chair independently. IV removed, catheter intact. Pressure applied to site, no active bleeding observed. Pressure dressing applied and patient educated on monitoring the IV site and what she should do if any problems should occure. Patient refused assistance leaving.
== END 2023-05-10 14:15 | disposition home or self-care (01) ==
LOC: CHSTREATRM 14:15
PROVIDERS: PCP Nurse Practitioner Family; Visit Provider Nurse Practitioner Family
DX: D50.9 Iron deficiency anemia, unspecified (principal)
CPT/HCPCS: 96365; 96366; J1756; J7050

== ENCOUNTER 2023-08-09 12:05 | Observation (INO) | payer MEDICARE, SELFPAY ==
--- NOTE | ~2023-08-09 | CT_ITS ---
EXAMINATION: CT abdomen pelvis w con INDICATION: Lower abdominal pain TECHNIQUE: Computed tomographic images of the abdomen and pelvis were obtained after the administrati on of 100 cc of Omnipaque 350 intravenous contrast. The dose-length product (DLP) was 525.44 mGy-cm. Automated exposure control and iterative reconstruction technique were employed. COMPARISON: None available FINDINGS: Minimal dependent atelectasis is present in the lung bases. The heart size is normal. There is a 4 mm nodule in the left lower lobe. There is a large hiatal hernia containing the fundus of the stomach. The gallbladder is distended. There is pericholecystic inflammatory change. A small amount of ascites is seen in the anterior pararenal space on the left. There is enlargement in the head of t he pancreas which contains multiple cystic areas. The pancreatic duct does not appear to be dilated. The spleen and right adrenal gland are normal. Cysts of the liver measure up to 6 mm. There is a 12 m m mass of the left adrenal gland. The there is severe atrophy of the left kidney and moderate atrophy of the right kidney. Both kidneys demonstrate multiple areas of cortical scarring. Cysts of the kidn eys measure up to 13 mm on the right. There is a small volume of pelvic ascites. The appendix is norm al. No pathologically enlarged abdominal or pelvic lymph nodes are identified. No free intraperitonea l gas or evidence of bowel obstruction. There is severe lumbar spondylosis. IMPRESSION: 1. Enlargement of the head of the pancreas with multiple cystic areas, likely acute pancreatitis. Dif ferential includes mucinous cystic neoplasm (MCN), and the less common serous cystadenoma and neuroen docrine tumor. Consider follow-up nonemergent MRI without and with contrast. 2. Enlargement of the gallbladder with pericholecystic inflammatory change. Findings likely relate to suspected acute pancreatitis or less likely cholecystitis. Reviewed, dictated and finalized at location L. LAINT INSPECTOR IMPRESSION: 1. Enlargement of the head of the pancreas with multiple cystic areas, likely a cute pancreatitis. Differential includes mucinous cystic neoplasm (MCN), and th e less common serous cystadenoma and neuroendocrine tumor. Consider follow-up n onemergent MRI without and with contrast. 2. Enlargement of the gallbladder with pericholecystic inflammatory change. Fin dings likely relate to suspected acute pancreatitis or less likely cholecystiti s.
[2023-08-09 12:05] VITALS: BP 160/84; PULSE 88; RESP 18; TEMP 37.2; O2SAT 97
[2023-08-09] MEDS: SODIUM CHLORIDE 0.9% IV 500 ML 999 ML IV CONT (12:49)
[2023-08-09 12:53] LABS: Basophils Absolute Auto 0.03 K/mm3 (0.00-0.10); Basophils Percent Auto 0.2 % (0.0-1.0); Hematocrit 48.4 % (35.0-42.0); Hemoglobin 16.3 g/dL (11.7-13.8); Immature Granulocyte Absolute 0.04 K/mm3 (0.00-0.00); Immature Granulocyte Percent A 0.3 % (0.0-0.0); Lymphocytes Absolute Auto 0.27 K/mm3 (1.10-4.50); Lymphocytes Percent Auto 1.8 % (18.0-42.0); Mean Corpuscular HGB Conc 33.7 g/dL (32.0-36.0); Mean Corpuscular Hemoglobin 29.1 pg (27.0-31.0); Mean Corpuscular Volume 86.3 fL (78.0-102.0); Mean Platelet Volume 8.7 fl (9.2-11.8); Monocytes Percent Auto 6.6 % (2.0-11.0); Neutrophils Absolute Auto 13.8 K/mm3 (1.7-7.2); Neutrophils Percent Auto 91.1 % (50.0-70.0); Platelet Count Result 278 K/mm3 (150-420); Red Blood Count 5.61 M/mm3 (4.20-5.40); Red Cell Distribution Width 13.9 % (11.6-14.4); White Blood Count 15.1 K/mm3 (4.8-10.8)
[2023-08-09 13:00] LABS: Appearance Urine Cloudy (Clear); Bilirubin Urine Negative (Negative); Blood Urine 1+ (Negative); Color Urine Yellow (Yellow); Glucose Urine UA Negative (Negative); Ketones Urine Negative (Negative); Leukocyte Esterase Ur 2+ LEU/UL (Negative); Nitrate Urine Negative (Negative); Protein Urine 2+ (Negative); Specific Grav Ur 1.025 (1.010-1.020); Urobilinogen Urine 0.2 mg/dL (0.2-1.0)
[2023-08-09 13:07] LABS: Add Urine Microscopic? YES; Bacteria Urine 4+ /hpf; Hyaline Casts Urine 0-2 /lpf; Squamous Epithelial Cell Urine Few /hpf (Few); WBC Clumps Urine Present /hpf; WBC Urine 21-30 /hpf (0-3)
[2023-08-09 13:08] LABS: Amorphous Sediment Urine Moderate
[2023-08-09 13:11] LABS: Lactic Acid Reflex 4.3 mmol/L (0.4-2.0)
[2023-08-09 13:12] LABS: Partial Thromboplastin Time 25.9 SEC (23.90-30.70); Prothrombin Time 11.4 Seconds (9.50-12.10)
[2023-08-09 13:17] LABS: Alanine Aminotransferase 262 U/L (14-59); Albumin Level 4.1 g/dL (3.4-5.0); Alkaline Phosphatase 144 U/L (46-116); Anion Gap 12 mmol/L (8-16); Aspartate Amino Transferase 140 U/L (15-37); Bilirubin,Total 1.4 mg/dL (0.00-1.00); Blood Urea Nitrogen 29 mg/dL (7-18); Calcium 9.5 mg/dL (8.5-10.1); Carbon Dioxide 28 mmol/L (21-32); Chloride 99 mmol/L (98-108); Estimated CRCL calculation 22 ml/min; Estimated Glomerular Filt Rate 31; Glucose 202 mg/dL (70-99); Osmolality Calculated 299 mOsm/kg (285-295); Potassium 3.2 mmol/L (3.5-5.1); Sodium 139 mmol/L (136-145); Total Protein 8.1 g/dL (6.4-8.2)
[2023-08-09 13:47] LABS: Lipase 2299 U/L (16-77)
[2023-08-09 14:00] VITALS: BP 152/80; PULSE 86; RESP 20; TEMP 37.2; O2SAT 98
--- NOTE | 2023-08-09 14:15 | ED.ABDPAIN ---
HPI - Abdominal Pain General Chief Complaint: Abdominal Pain Stated Complaint: stomach issues Time Seen by Provider: 08/09/23 12:15 Source: patient Mode of arrival: ambulatory Limitations: no limitations History of Present Illness HPI narrative: this is a 82-year-old female presents with a 2 day history of abdominal pain, with nausea with no fever chills no current vomiting, patient over the past week has had some episodes of loose stools but currently no diarrhea or constipation there is no flank pain, patient denies dysuria no hematuria. Patient's past medical history includes hypertension which she takes losartan along with hydrochlorothiazide. MD elicited complaint: abdominal pain Pertinent past history: none Onset (ago): day(s) Pain Consistency: constant Location: epigastric and LUQ Severity: severe Pain scale (0-10): 8 Quality: aching and fullness Radiation: LUQ Exacerbating factors: nothing Relieving factors: nothing Related Data Home Medications Medication Instructions Recorded Confirmed multivitamin with minerals 1 tablet PO DAILY 07/19/21 08/09/23 (Hair,Skin and Nails tablet) hydrochlorothiazide 12.5 mg capsule 12.5 mg PO BID 08/09/23 08/09/23 losartan 50 mg tablet 50 mg PO DAILY 08/09/23 08/09/23 Allergies Allergy/AdvReac Type Severity Reaction Status Date / Time No Known Allergies Allergy Verified 08/09/23 13:18 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 Family History Family History Father Diabetes mellitus Lung cancer Mother Acute myocardial infarction Social History Social History Smoking status: Never smoker Alcohol intake: never Substance use: never Substance use type: does not use Living arrangements: alone Occupation/Education: retired Spiritual care concerns: No Exam Const: General: no acute distress Nutritional Appearance: well nourished Orientation/consciousness: patient oriented x3 Limitations: no limitations Neck: Neck: normal visual inspection, no lymphadenopathy and no meningeal signs Chest: Chest palpation & inspection: normal inspection of the chest Resp: Effort & Inspection: normal respiratory effort Auscultation: clear to auscultation bilaterally Cardio: Rate: regular rate Rhythm: regular rhythm GI: GI Palp: Yes Soft to palpation and Yes Tenderness to palpation present (GI) Auscultation: normal bowel sounds : General: Yes bladder normal to palpation Back/Spine/Pelvis: Back: no CVA tenderness Skin: General skin exam: normal color Rashes: no rashes Neuro: General: patient oriented x3, moves all extremities and no meningeal signs Extrem: General: normal to inspection and no clubbing, cyanosis or edema Psych: Mental Status: mental status grossly normal Affect: normal affect Course Course Emergency Course: Patient with abdominal pain and after reassessment after given 15mg of Toradol the patient continues to have abdominal discomfort and will given additional 2mg of morphine, the patient had blood work performed which showed that she had an elevated lipase and liver enzymes. CT scan shows enlargement head pancreas which shows consistent with acute pancrea
[2023-08-09] MEDS: MORPHINE SULFATE (*CRX) 2 MG/ML INJ IV PUSH (14:35)
[2023-08-09 15:11] VITALS: PULSE 86; RESP 20; O2SAT 99
[2023-08-09 15:27] LABS: Lactate Dehydrogenase 243 U/L (81-234); Phosphorus 4.8 mg/dL (2.6-4.7)
[2023-08-09 15:42] VITALS: BMI 26.1
[2023-08-09 15:50] LABS: Reflex Lactic Acid Yes or No Add Lactic
[2023-08-09 16:00] VITALS: PULSE 86
[2023-08-09] MEDS: POTASSIUM CHLORIDE 20 MEQ PACKET (FOR LIQUID) 40 MEQ PO (16:16)
[2023-08-09] MEDS: LIDOCAINE 5% PATCH 1 PATCH TRANSDERM (16:16)
[2023-08-09] MEDS: SODIUM CHLORIDE 0.9% IV 1,000 ML 100 ML IV CONT (16:17)
[2023-08-09] MEDS: ONDANSETRON INJ 4 MG/2 ML VIAL IV PUSH (16:20)
[2023-08-09 16:29] LABS: Lactic Acid 2.7 mmol/L (0.4-2.0)
--- NOTE | 2023-08-09 16:39 | ADMGEN ---
1520 This patient, Berkley Wagoner, was admitted to 2nd Floor Room 203-1. This patient is here for c/o general all sickness with upper abd pain. claims she had her last loose stool sunday @ midnoc. claims she has had no energy since and upper abd pain. just dont feel like eating. Patient/family oriented to hospital policies and general routines including ID bracelet, bed and alarms, visiting hours, pain management, procedures, bathroom and other care routines, personal items, smoking policy, room service/diet, and visiting hours. Information on how to activate the Rapid Response Team has been discussed. Patient/Family are encouraged to report perceived risks to care and to ask questions if they do not understand what they are told or what they should do.
--- NOTE | 2023-08-09 17:29 | PC.NURSE ---
1650 took one of liquid K+. started dry heaving. prn zofran given just prior to this. refuses to drink any more.
[2023-08-09] MEDS: KCL 20 MEQ/SW 100 ML 100 ML 50 MEQ IVPB (19:51)
[2023-08-09 20:00] VITALS: PULSE 82
[2023-08-09 22:30] LABS: Lactate Dehydrogenase 244 U/L (81-234)
[2023-08-09 22:31] LABS: Lipase 838 U/L (16-77)
[2023-08-09 22:35] LABS: Lactic Acid Reflex 1.9 mmol/L (0.4-2.0)
[2023-08-10] VITALS: BP 126/76; PULSE 75; RESP 16; TEMP 36.2; O2SAT 95
[2023-08-10 04:00] VITALS: PULSE 69
[2023-08-10] MEDS: SODIUM CHLORIDE 0.9% IV 1,000 ML 100 ML IV CONT (04:54)
--- NOTE | 2023-08-10 05:06 | PC.NURSE ---
Patient admitted on the with pancreatitis and UTI. Patient was NPO when admitted. Labs were redrawn at 2200, and results called in to CLEANING PORTER, who changed diet to Clear Liquid Diet. Patient tolerated at least 250 mL of water. Will receive clear liquid diet breakfast in the AM. Patient slept well, and did not require any pain medication.
[2023-08-10 05:26] LABS: Hematocrit 43.5 % (35.0-42.0); Hemoglobin 14.1 g/dL (11.7-13.8); Mean Corpuscular HGB Conc 32.4 g/dL (32.0-36.0); Mean Corpuscular Hemoglobin 29.1 pg (27.0-31.0); Mean Corpuscular Volume 89.9 fL (78.0-102.0); Platelet Count Result 229 K/mm3 (150-420); Red Blood Count 4.84 M/mm3 (4.20-5.40); Red Cell Distribution Width 14.6 % (11.6-14.4); White Blood Count 8.6 K/mm3 (4.8-10.8)
[2023-08-10 05:48] LABS: Alanine Aminotransferase 149 U/L (14-59); Albumin Level 3.3 g/dL (3.4-5.0); Alkaline Phosphatase 97 U/L (46-116); Anion Gap 8 mmol/L (8-16); Aspartate Amino Transferase 53 U/L (15-37); Bilirubin,Total 1.1 mg/dL (0.00-1.00); Blood Urea Nitrogen 34 mg/dL (7-18); Calcium 8.7 mg/dL (8.5-10.1); Carbon Dioxide 28 mmol/L (21-32); Chloride 105 mmol/L (98-108); Estimated CRCL calculation 25 ml/min; Estimated Glomerular Filt Rate 35; Glucose 126 mg/dL (70-99); Osmolality Calculated 301 mOsm/kg (285-295); Potassium 3.3 mmol/L (3.5-5.1); Sodium 141 mmol/L (136-145)
[2023-08-10 07:12] LABS: Lactate Dehydrogenase 226 U/L (81-234)
[2023-08-10 07:36] LABS: Lipase 689 U/L (16-77)
--- NOTE | 2023-08-10 07:57 | PM.IMHP ---
H&P: HPI History of Present Illness Date/Time: 08/10/23 07:57 Chief Complaint: Pancreatitis Narrative: hypertension, pancreatitis, urinary problems, nausea and vomiting x2 days diarrhea for 2 days. no fever abdominal pain when couging or vomiting. started in 4 days. abdominal pain is epigastric pain . This is an 82 year old who presented to the emergency room with two day history of nausea and vomiting, diarrhea . The patient was found to have elevated AST, ALT levels, and a CT scan revealed/confirmed Pancreatitis. As the the patient starts to feel better and require less pain medication we will advance her diet to clear liquid from NPO. Pain medication , antibiotics , IVF have been implemented. Patient has be diagnosised with Uti (Urinary Tract Infection), for which intravenous antibitiotics have been prescribed. We will continue to monitor patient closely.Patient has a past medical history which includes hypertension, hyperlipedema, UTI. Patient has remained afebrile zofran order for nausea and or vomiting. 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 Family History Family History Father Diabetes mellitus Lung cancer Mother Acute myocardial infarction Social History Social History Smoking status: Never smoker Second hand tobacco smoke exposure: Yes Alcohol intake: never Substance use: unknown Substance use type: does not use Lack of Transportation: YES Lack of Food: Never True Current Housing: I Have Housing Concerned About Future Housing: No Difficulty Paying Gas/Electric Bills: No Difficulty Paying for Meds: No Currently Unemployed: No Education: Associate Degree Difficulty w/ Childcare or Family Care: No Living arrangements: alone Occupation/Education: retired Spiritual care concerns: No Meds Home Medications and Allergies Home Medications Medication Instructions Recorded Confirmed Type multivitamin with minerals 1 tablet PO DAILY 07/19/21 08/09/23 History (Hair,Skin and Nails tablet) dicyclomine 20 mg tablet 20 mg PO QID PRN loose stools #20 08/07/23 08/09/23 Rx tabs psyllium husk 0.4 gram capsule 0.4 g PO DAILY #30 caps 08/07/23 08/09/23 Rx (Metamucil) hydrochlorothiazide 12.5 mg capsule 12.5 mg PO BID 08/09/23 08/09/23 History losartan 50 mg tablet 50 mg PO DAILY 08/09/23 08/09/23 History ciprofloxacin HCl 500 mg tablet 500 mg PO Q12H #10 tabs 08/11/23 Rx (Cipro) ondansetron 4 mg disintegrating 4 mg PO Q8H PRN nausea and 08/11/23 Rx tablet vomiting #10 tabs Allergies Allergy/AdvReac Type Severity Reaction Status Date / Time No Known Allergies Allergy Verified 08/09/23 13:18 Vital Signs Vital Signs - 24 hr 08/09/23 12:05 08/09/23 14:00 08/09/23 15:11 Temperature 99 F 98.9 F Pulse Rate 88 86 86 Respiratory Rate 18 20 20 Blood Pressure 160/84 H 152/80 H Pulse Oximetry 97 98 99 Oxygen Delivery Room Air Room Air Room Air 08/09/23 16:00 08/09/23 20:00 08/10/23 00:00 Temperature Pulse Rate 86 82 75 Respiratory Rate Blood Pressure Pulse Oximetry Oxygen Delivery 08/10/23 00:00 08/10/23 04:00 Temperature 97.1 F L Pulse Rate 75 69
[2023-08-10 08:00] VITALS: BP 156/68; PULSE 78; RESP 16; TEMP 37; O2SAT 96
[2023-08-10] MEDS: KCL 20 MEQ/SW 100 ML 100 ML 50 MEQ IVPB (08:28)
[2023-08-10] MEDS: hydroCHLOROthiazide 12.5 MG CAPSULE PO ×2 (08:28→20:46)
[2023-08-10] MEDS: THERAPEUTIC MULTIVITAMINS/MINERALS TAB (*BKC) 1 TABLET PO (08:28)
[2023-08-10] MEDS: LOSARTAN POTASSIUM 50 MG TABLET PO (08:29)
[2023-08-10 16:00] VITALS: BP 146/69; PULSE 78; RESP 16; TEMP 36.6; O2SAT 97
[2023-08-11] VITALS: BP 131/72; PULSE 74; RESP 16; TEMP 37.3; O2SAT 92
[2023-08-11 05:58] LABS: Hematocrit 38.3 % (35.0-42.0); Hemoglobin 12.7 g/dL (11.7-13.8); Mean Corpuscular HGB Conc 33.2 g/dL (32.0-36.0); Mean Corpuscular Volume 87.4 fL (78.0-102.0); Mean Platelet Volume 9.3 fl (9.2-11.8); Platelet Count Result 214 K/mm3 (150-420); Red Blood Count 4.38 M/mm3 (4.20-5.40); Red Cell Distribution Width 14.2 % (11.6-14.4); White Blood Count 11.1 K/mm3 (4.8-10.8)
[2023-08-11 06:13] LABS: Alanine Aminotransferase 84 U/L (14-59); Albumin Level 2.8 g/dL (3.4-5.0); Alkaline Phosphatase 92 U/L (46-116); Anion Gap 4 mmol/L (8-16); Aspartate Amino Transferase 22 U/L (15-37); Bilirubin,Total 1.1 mg/dL (0.00-1.00); Blood Urea Nitrogen 21 mg/dL (7-18); Calcium 7.8 mg/dL (8.5-10.1); Carbon Dioxide 30 mmol/L (21-32); Chloride 101 mmol/L (98-108); Estimated CRCL calculation 33 ml/min; Estimated Glomerular Filt Rate 49; Glucose 102 mg/dL (70-99); Osmolality Calculated 283 mOsm/kg (285-295); Potassium 2.9 mmol/L (3.5-5.1); Sodium 135 mmol/L (136-145); Total Protein 6.5 g/dL (6.4-8.2)
[2023-08-11 08:00] VITALS: BP 126/81; PULSE 78; RESP 18; TEMP 36.3; O2SAT 96
--- NOTE | 2023-08-11 08:27 | PM.DS ---
DS: Admitting Diagnosis Discharge Date 08/11/2023 Admitting Diagnosis Pancreatitis, Hypokalemia DS: Discharge Diagnosis Discharge Diagnosis (1) Acute pancreatitis: Qualifiers: Acute pancreatitis complication: unspecified Pancreatitis type: unspecified pancreatitis type Qualified Code(s): K85.90 - Acute pancreatitis without necrosis or infection, unspecified Code(s): K85.90 - Acute pancreatitis without necrosis or infection, unspecified Status: Acute Assessment and Plan: IV fluids completed pain medication NPO Clear liquid Full liquid (2) Acute UTI: Code(s): N39.0 - Urinary tract infection, site not specified Status: Acute Assessment and Plan: IV antibiotic oral antibiotic (3) Hypokalemia: Code(s): E87.6 - Hypokalemia Status: Acute Assessment and Plan: IV potassium oral potassium DS: Summary Hospital Course Reason for hospitalization: Pancreatitis, Uti, Hypokalemia Hospital Course: This is a 82 year old patient who presented to the emergency room with pain in abdomen, nausea, and diarrhea that started approximately two days ago. The patient past medical history is hypertension, hyperlipedema, and nausea. a CT scan revealed pancreatitis, and a elevated ast, alt levels were detected and patient was initially kept NPO(Nothing by mouth) before progressing to clear liquids and then full liquids. Additionally patient was found to be hypokalemic which was corrected by replenishing potassium levvels. The potassium level increased from 2.8-3.4 and the patient was discharge with a couple days of potassium for continued supplementation. Follow up with primary care provider was arranged. The patient condition has signigicantly improved. and she is able to tolerate eating and drinking her lab levels have returned to normal. Time Spent with Patient Time attestation: Total time spent providing and/or coordinating discharge services: DS: Data Data Completed and Pending Labs on day of discharge: Labs from last 24 hours 08/11/23 05:39 WBC 11.1 H RBC 4.38 Hgb 12.7 Hct 38.3 MCV 87.4 MCH 29.0 MCHC 33.2 RDW 14.2 Plt Count 214 MPV 9.3 Sodium 135 L Potassium 2.9 L Chloride 101 Carbon Dioxide 30 Anion Gap 4 L BUN 21 H Creatinine 1.08 H Estim Creat Clear Calc 33 Estimated GFR 49 L Glucose 102 H Calculated Osmolality 283 L Calcium 7.8 L Total Bilirubin 1.1 H AST 22 ALT 84 H Alkaline Phosphatase 92 Total Protein 6.5 Albumin 2.8 L Preliminary micro results at discharge 08/09/23 12:32 Urine Culture - Preliminary Urine Clean Catch Gram negative bacilli isolated 08/09/23 14:48 Blood Culture - Preliminary Blood 08/09/23 14:25 Blood Culture - Preliminary Blood Discharge Plan Discharge Attending physician on discharge: Sudarshan Comer Discharging Clinician: Naima Carlin Anticipated Discharge Date/Time: 08/11/23 08:20 Patient Disposition: Home, Self-Care Activity: may shower and unlimited Diet: as tolerated and heart healthy Wound Care Instructions: follow printed instructions Discharge Instructions: Make sure that you drink plenty of fluids Avoid spicy and tomatoes types of foods. Patient Instructions: Antibiotic Form, Ciprofloxacin (By mouth), Ondansetron (By mouth), Pancreatitis (DC), Dehydration (DC), Heart Healthy Diet (DC), Hypokalemia (DC), Gastroenteritis (DC), Abdominal Pain (DC) Stand Alone Forms: General Discharge Information Follow-up/Referrals: Sera Miller SENIOR WEB APPLICATIONS DEVELOPER [Primary Care Provider] - Call for Appointment (Call and schedule appointment with pCP for post hospital visit, follow up in 1-2 weeks.) Discharge Medications: New ciprofloxacin HCl [Cipro] 500 mg tablet 500 mg PO Q12H Qty: 10 0RF ondansetron 4 mg tablet,disintegrating 4 mg PO Q8H PRN (Reason: nausea and vomiting) Qty: 10 0RF Continued losartan 50 mg tablet 50 mg
[2023-08-11] MEDS: SODIUM CHLORIDE 0.9% IV 250 ML 100 ML IV CONT (08:57)
[2023-08-11] MEDS: KCL 20 MEQ/SW 100 ML 100 ML 50 MEQ IVPB (08:57)
[2023-08-11] MEDS: THERAPEUTIC MULTIVITAMINS/MINERALS TAB (*BKC) 1 TABLET PO (09:07)
[2023-08-11] MEDS: hydroCHLOROthiazide 12.5 MG CAPSULE PO (09:07)
[2023-08-11] MEDS: LOSARTAN POTASSIUM 50 MG TABLET PO (09:07)
[2023-08-11 12:28] LABS: Potassium 3.4 mmol/L (3.5-5.1)
--- NOTE | 2023-08-11 14:35 | PC.NURSE ---
Discharge instructions reviewed with patient. All questions answered. Pt escorted to private vehicle and assisted with personal items.
[2023-08-12 00:17] LABS: CA-125 27 U/mL (<35)
--- NOTE | 2023-08-13 09:53 | PC.NURSE ---
Discharge call back completed, doing well, seeing Sera tomorrow for followup at 1130, did not have any questions regarding dc instructions, watching her diet and staying hydrated, you girls were wonderful.
== END 2023-08-11 14:35 | disposition home or self-care (01) ==
LOC: CHSED 14:34 → CHS2ND 14:41
PROVIDERS: Nurse Practitioner; Nurse Practitioner Family; Admitting Provider Internal Medicine; Emergency Provider Emergency Medicine; PCP Nurse Practitioner Family; Visit Provider Internal Medicine
DX: K85.90 Acute pancreatitis without necrosis or infection, unspecified (principal); N39.0 Urinary tract infection, site not specified; E87.6 Hypokalemia; I12.9 Hypertensive chronic kidney disease with stage 1 through stage 4 chronic kidney disease, or unspecified chronic kidney disease; N18.30 Chronic kidney disease, stage 3 unspecified; G62.9 Polyneuropathy, unspecified; R74.8 Abnormal levels of other serum enzymes; R74.01 Elevation of levels of liver transaminase levels; E80.7 Disorder of bilirubin metabolism, unspecified; E78.5 Hyperlipidemia, unspecified; Z96.651 Presence of right artificial knee joint; Z79.899 Other long term (current) drug therapy
CPT/HCPCS: 36415; 74177; 80053; 81001; 83605; 83615; 83690; 83735; 84100; 84132; 85025; 85027; 85610; 85730; 86304; 87040; 87086; 87088; 96361; 96365; 96366; 96367; 96375; 99285; A9270; G0378; J0696; J2270; J2405; J3480; J7030; J7040; J7050; Q9967

== ENCOUNTER 2023-08-15 12:34 | Outpatient (CLI) | payer MEDICARE, SELFPAY ==
--- NOTE | ~2023-08-15 | US_ITS ---
Duplex Sonography of the right extremity: Indication: Other specified soft tissue disorder, swelling Findings: Sagittal and transverse B-mode images as well as color-flow imaging were performed on the r ight femoral and popliteal veins. B-mode examination was done without and with compression in the tr ansverse plane. There is good visualization of the common femoral, proximal profunda femoral, superf icial femoral, greater saphenous, and popliteal veins. Normal flow was seen on color-flow imaging. N ormal compressibility was demonstrated. Visualized calf veins are also patent. Impression: No evidence of deep vein thrombosis involving the right lower extremity. Reviewed, dictated and finalized at location M. F ORDER DISPATCHER Impression: No evidence of deep vein thrombosis involving the right lower extremity.
== END 2023-08-15 12:35 | disposition home or self-care (01) ==
LOC: CHSIMG 12:35
PROVIDERS: PCP Nurse Practitioner Family; Visit Provider Nurse Practitioner Family
DX: M79.89 Other specified soft tissue disorders (principal)
CPT/HCPCS: 93971

== ENCOUNTER 2023-08-25 08:27 | Outpatient (CLI) | payer MEDICARE, SELFPAY ==
--- NOTE | ~2023-08-25 | MR_ITS ---
EXAMINATION: MR abdomen wo/w con DATE: 08/25/2023 09:11 INDICATION: Acute pancreatitis without necrosis. TECHNIQUE: Magnetic resonance imaging (MRI) of the abdomen was performed without and with 15 mL Multi Ana intravenous contrast. COMPARISON: CT abdomen and pelvis 08/09/2023 FINDINGS: There are cysts in the liver measuring up to 11 mm. There is a large sliding hiatal hernia. There are gallstones in the gallbladder which is normal in size. The common duct is normal in caliber. There i s edema around the pancreas. There are areas of nonenhancement in the head and tail of the pancreas. The spleen and adrenal glands are normal. There are cysts in the kidneys measuring up to 14 mm in the right. There is mild atrophy of right kidney and moderate atrophy of left kidney. IMPRESSION: 1. Acute necrotizing pancreatitis. 2. Cholelithiasis. 3. Large sliding hiatal hernia. Reviewed, dictated and finalized at location A. ROL ANALYST
== END 2023-08-25 08:28 | disposition home or self-care (01) ==
LOC: CHSIMG 08:28
PROVIDERS: Absent Provider Nurse Practitioner Family; PCP Nurse Practitioner Family; Visit Provider Nurse Practitioner Family
DX: K85.91 Acute pancreatitis with uninfected necrosis, unspecified (principal); K80.20 Calculus of gallbladder without cholecystitis without obstruction; K44.9 Diaphragmatic hernia without obstruction or gangrene
CPT/HCPCS: 74183; A9577

== ENCOUNTER 2023-09-06 11:00 | Outpatient (CLI) | payer MEDICARE, SELFPAY ==
[2023-09-06 11:12] LABS: Basophils Absolute Auto 0.06 K/mm3 (0.00-0.10); Basophils Percent Auto 1.3 % (0.0-1.0); Eosinophils Absolute Auto 0.35 K/mm3 (0.02-0.50); Eosinophils Percent Auto 7.5 % (1.0-6.0); Hematocrit 39.5 % (35.0-42.0); Hemoglobin 12.7 g/dL (11.7-13.8); Immature Granulocyte Absolute 0.01 K/mm3 (0.00-0.00); Immature Granulocyte Percent A 0.2 % (0.0-0.0); Lymphocytes Percent Auto 15.1 % (18.0-42.0); Mean Corpuscular HGB Conc 32.2 g/dL (32.0-36.0); Mean Corpuscular Hemoglobin 28.6 pg (27.0-31.0); Mean Platelet Volume 8.5 fl (9.2-11.8); Monocytes Absolute Auto 0.35 K/mm3 (0.10-0.90); Monocytes Percent Auto 7.5 % (2.0-11.0); Neutrophils Absolute Auto 3.2 K/mm3 (1.7-7.2); Neutrophils Percent Auto 68.4 % (50.0-70.0); Platelet Count Result 245 K/mm3 (150-420); Red Blood Count 4.44 M/mm3 (4.20-5.40); Red Cell Distribution Width 13.6 % (11.6-14.4); White Blood Count 4.6 K/mm3 (4.8-10.8)
[2023-09-06 13:33] LABS: Alanine Aminotransferase 22 U/L (14-59); Albumin Level 3.3 g/dL (3.4-5.0); Alkaline Phosphatase 79 U/L (46-116); Anion Gap 8 mmol/L (8-16); Aspartate Amino Transferase 15 U/L (15-37); Bilirubin,Total 0.4 mg/dL (0.00-1.00); Blood Urea Nitrogen 24 mg/dL (7-18); Calcium 8.5 mg/dL (8.5-10.1); Carbon Dioxide 30 mmol/L (21-32); Chloride 107 mmol/L (98-108); Estimated Glomerular Filt Rate 53; Glucose 97 mg/dL (70-99); Lipase 103 U/L (16-77); Osmolality Calculated 304 mOsm/kg (285-295); Potassium 3.4 mmol/L (3.5-5.1); Sodium 145 mmol/L (136-145); Total Protein 6.6 g/dL (6.4-8.2)
[2023-09-06 13:34] LABS: CRP < 0.5 mg/dL (0.0-0.9)
== END 2023-09-06 11:01 | disposition home or self-care (01) ==
LOC: CHSLAB 11:01
PROVIDERS: PCP Family Medicine; Visit Provider Family Medicine
DX: R10.9 Unspecified abdominal pain (principal); K85.90 Acute pancreatitis without necrosis or infection, unspecified
CPT/HCPCS: 36415; 80053; 83690; 85025; 86140

== ENCOUNTER 2023-09-29 09:12 | Outpatient (CLI) | payer MEDICARE, SELFPAY ==
[2023-09-29 09:46] LABS: Amylase 54 U/L (25-115)
== END 2023-09-29 09:13 | disposition home or self-care (01) ==
LOC: CHSLAB 09:14
PROVIDERS: PCP Family Medicine; Visit Provider Surgery
DX: Z01.818 Encounter for other preprocedural examination (principal); K80.20 Calculus of gallbladder without cholecystitis without obstruction
CPT/HCPCS: 36415; 82150

== ENCOUNTER 2023-10-08 01:43 | Day surgery (SDC) | payer MEDICARE, MEDICAID, SELFPAY ==
[2023-09-26 15:07] VITALS: BMI 28.1
--- NOTE | 2023-09-26 15:36 | PC.NURSE ---
Report to the Outpatient Waiting Room, entrance under the green pavilion located off [facility], at time __0600 on date ___10/08/23____. Planned Procedure Time: __0730 . Time changes happen often and if your time is changed the preop area will call you the afternoon before. - You and your visitor will be asked to self-screen and do not enter if you have any COVID symptoms. - A mask is optional within the hospital at this time. Patients may have clear liquids (water, carbonated beverages, clear teas, apple juice) until 3 hours prior to surgery (0430 AM) with a maximum of 20 ounces. - No food from midnight until time of surgery - Infants may have breast milk until 4 hours before surgery, formula 6 hours prior to surgery. - Children will be allowed to drink immediately following surgery. If applicable, please bring a bottle or sippy cup to assist with drinking. Juice, water, soda, and popsicles are readily available. For infants on formula, please bring formula the day of surgery. Pacifiers are allowed. Take the following medications with a SIP of water the morning of surgery: NONE DO NOT STOP ANY OF YOUR OTHER PRESCRIPTION MEDICATIONS PRIOR TO SURGERY ?EXCEPT THE FOLLOWING Medications to discontinue per ANESTHESIA - _MULTIVITAMIN & SUPPLEMENTS 3 DAYS PRIOR TO SURGERY, Date to take last dose 10/04/23__ Please no make-up, nail persian, hairspray, perfume, deodorant, or body powder the day of surgery. No jewelry (including any body piercings) or valuables the day of surgery, leave them at home. Please take a shower or bath the night before, or the morning of, surgery with an antibacterial soap. Wear comfortable, loose fitting clothing. Children are encouraged to wear pajamas. - Jewelry must be removed prior to entering the operating room. Rings and piercings that are not removed may be cut off. - The hospital will not accept responsibility for valuables. - Please leave all valuables, including medications, at home the day of surgery. If you are going home after surgery, a licensed drop hammer pile driver operator must drive you home. - NO public transportation without another adult if you receive anesthesia. - We recommend that an adult stay with you for 24 hours following discharge. - We also recommend that you do not drive, make important decision, drink alcoholic beverages, or take any drugs that were not prescribed by your health care provider for at least 24 hours after your discharge time. For Pediatric surgeries, we recommend two adults accompany the child home. Follow any additional instructions given to you from your surgeon. If you or anyone in your household have experienced Covid symptoms in the past week, please notify your surgeon or the nurse liaison at the phone number below for possible testing. Telephone instructions given to ___PT and asked if any additional questions and then verbalized understanding. Patient advised to call surgeon office or pre surgery nurse liaison [phone] if any additional questions.
[2023-10-08] VITALS (17 sets, daily range): BP systolic 112–211; BP diastolic 56–121; PULSE 50–71; RESP 14–22; TEMP 36.4–36.6; O2SAT 95–100; BMI 28.2
--- NOTE | 2023-10-08 05:55 | ECG_ITS ---
Measurements Intervals [place] Rate: 57 P: 68 [place]: 256 QRS: 56 QRSD: 144 T: 5 QT: 456 QTc: 447 Interpretive Statements SINUS BRADYCARDIA WITH FIRST DEGREE AV BLOCK RIGHT BUNDLE BRANCH BLOCK [120+ ms QRS DURATION, UPRIGHT V1, 40+ ms S IN I/aVL/V4/V5/V6] ABNORMAL ECG COMPARED TO ECG 02/07/2021 11:10:28 NO SIGNIFICANT CHANGES Electronically Signed On 10-08-2023 8:44:46 COMPUTER ENGINEERING TECHNOLOGIST by Elvin Marx M.D.
[2023-10-08] MEDS: ACETAMINOPHEN 500 MG TABLET 1000 MG PO (07:23)
[2023-10-08] MEDS: KETOROLAC 15 MG/ML VIAL (*BKC) IV PUSH (07:23)
--- NOTE | 2023-10-08 07:25 | WPDHPUPDATE1 ---
History and Physical Update Update Date/Time: 10/08/23 07:25 History and Physical has been reviewed, including an updated exam of the patient. There are NO changes in the patient's condition. Risks, benefits, and alternatives have been discussed and questions answered. Patient agrees to proceed with procedure.
--- NOTE | 2023-10-08 07:43 | WPDANESEPPF ---
Anes - Initial Pre Proc Eval Procedure: Operation Date: 10/08/23 08:30 Proposed Procedures p Laparoscopic Cholecystectomy, Possible Open - Carlitos Melgar MD Date/Time: 10/08/23 07:43 Surgeon: Carlitos Melgar MD Pre Op Diagnosis: cholelithiasis, hx gallstone and pancreatitis Patient Data Age: 82 Gender: F Height: 1.59 m Weight: 70.9 kg Allergies Allergy/AdvReac Type Severity Reaction Status Date / Time No Known Allergies Allergy Verified 09/19/23 13:09 Home Medications Medication Instructions Recorded Confirmed Type multivitamin with minerals 1 tablet PO DAILY 07/19/21 09/26/23 History (Hair,Skin and Nails tablet) psyllium husk 0.4 gram capsule 0.4 g PO DAILY #30 caps 08/07/23 09/26/23 Rx (Metamucil) hydrochlorothiazide 12.5 mg capsule 12.5 mg PO BID 08/09/23 09/26/23 History losartan 50 mg tablet 50 mg PO DAILY 08/09/23 09/26/23 History dicyclomine 20 mg tablet 20 mg PO BID PRN IBS 09/13/23 09/26/23 History Prevagen 1 tab-cap DAILY 09/26/23 09/26/23 History cholecalciferol (vitamin D3) 25 25 mcg PO DAILY 09/26/23 09/26/23 History mcg (1,000 unit) tablet multivitamin 1 tablet PO DAILY 09/26/23 09/26/23 History oxybutynin chloride 5 mg tablet 5 mg PO DAILY 09/26/23 09/26/23 History Patient hx anesthesia problems: none Family hx anesthesia problems: none Results Review: All pre-operative results and documents have been reviewed as part of the pre-operative evaluation. 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 Family History Family History Father Diabetes mellitus Lung cancer Mother Acute myocardial infarction Social History Social History Smoking status: Never smoker Second hand tobacco smoke exposure: No Alcohol intake: never Substance use: never Substance use type: does not use Do You Feel Safe in your Home?: Yes Lack of Transportation: YES Lack of Food: Never True Current Housing: I Have Housing Concerned About Future Housing: No Difficulty Paying Gas/Electric Bills: No Difficulty Paying for Meds: No Currently Unemployed: No Education: Associate Degree Difficulty w/ Childcare or Family Care: No Living arrangements: alone Occupation/Education: retired Spiritual care concerns: No Anes - Eval Final PreProcedure Day of Procedure 10/08/23 07:43 Patient weight: overweight Heart: regular rate and rhythm Lungs: clear to auscultation Airway: Mallampati scale class II Neurological: alert and oriented Last oral intake: >/= 8 hours ASA classification: III Emergent: no Anesthetic plan: proceed Anesthesia type and monitoring: general ETT and standard monitoring Results Review: All pre-operative results and documents have been reviewed as part of the pre-operative evaluation. Informed Consent: The patient's anesthetic plan and its attendant risks and benefits were discussed with the patient/family/POA. Questions were solicited and answers provided to the satisfaction of the patient/family/POA.
[2023-10-08] MEDS: ceFAZolin 2 GM/D5W 50 ML 2 GM/50 ML BAG IVPB (08:37)
[2023-10-08] MEDS: LACTATED RINGERS 1,000 ML 30 ML IV CONT ×2 (08:51→09:47)
[2023-10-08] MEDS: LIDO 1%/EPINEPHRINE 1:100,000 20 ML VIAL 30 ML INFILTRATE (09:12)
[2023-10-08] MEDS: BUPivacaine HCL 0.5% PF 30 ML VIAL INFILTRATE (09:12)
--- NOTE | 2023-10-08 09:53 | W.PM.PROC2 ---
Procedure Note - Detailed Date of Procedure 10/08/23 Pre-op Diagnosis Cholelithiasis, hx gallstone and pancreatitis Post-op Diagnosis Same Procedure Performed Laparoscopic cholecystectomy. Surgeon Carlitos Melgar MD Harness Worker LULU Bellamy Anesthesia General Indications Patient is a 82-year-old female who had a recent history of acute gallstone pancreatitis. She was treated in the hospital medically and did not need any surgical treatment at that time. Note have cholelithiasis without evidence of cholecystitis. Presents now for elective laparoscopic cholecystectomy to remove the gallbladder and gallstones prevent further episodes of gallstone pancreatitis. Findings The gallbladder did not appear inflamed. It appeared relatively normal her small gallstones are noted within the gallbladder. Description of Procedure After informed consent was obtained patient brought to the operating room she was placed supine position and general endotracheal anesthesia was administered. The abdomen was then prepped and draped usual sterile fashion. A time-out was then performed correctly identifying the patient as well as procedure to be performed verifying she was already getting some some perioperative IV antibiotics. I then started the procedure by placing a 5mm Optiview port in the left upper quadrant with a direct optical insertion. Once inside the abdomen insufflated to adequate pneumoperitoneum of 15mmHg of CO2. I then placed a under periumbilical trocar port and then a 10mm epigastric trocar port 2 right lateral subcostal 5mm trocar ports all under direct visualization. The gallbladder was visualized the right upper quadrant was mildly distended but the wall was normal in thickness and there is no evidence of acute or chronic inflammation. There were no adhesions of the omentum or stomach or duodenum to the gallbladder. With a laparoscopic grasper then held the gallbladder at the dome and elevated the gallbladder over the right half liver towards right shoulder. A 2nd grasper used to hold the gallbladder at the infundibulum. I then proceeded to dissect down on the infundibular of the gallbladder stripping down visceral peritoneum off of the infundibulum into identified the cystic duct. The cystic duct was dissected out circumferentially. Cystic artery was identified and dissected out circumferentially as well. Posterior wall the gallbladder infundibulum dissected free of the liver into the critical view was obtained. At this point I placed 2 clips proximally cystic duct and 2 clips distally high on infundibular gallbladder. Cystic duct was divided with Endo El. In a similar fashion cystic artery clipped and divided as well. The gallbladder was then resected off the liver utilizing electrocautery without spilling any bile or gallstones. Once the gallbladder was freed from liver is placed into an Endo-Catch bag and brought out through the epigastric port site. The gallbladder gallstones within it was sent to pathology for examination. I then irrigated out the right upper quadrant the abdomen gallbladder fossa copious amount of sterile saline solution. There was no bile leak and hemostasis was good. I then aspirated the fluid from the right upper quadrant the abdomen from the pelvis. I then removed all the trocar ports under visualization all port sites appeared hemostatic. I then allowed the abdomen decompressed. I irrigated out the port sites sterile saline solution. Hemostasis was good. I then closed the epigastric 10mm trocar port fascial defect utilizing 0 Vicryl suture at the fascial level. The skin edges in all the port sites were approximated lies in a running subcuticular 4-0 Monocryl suture. The incisions were then cleaned the skin glue and sterile dressings were applied. The patient tolerated the procedure well no complications. All sponges, needles, and instrument counts were correct at the end procedure. EBL was _10__cc. The patient w
--- NOTE | 2023-10-08 10:20 | SUR.PHASEI ---
1015: Simple mask removed.
--- NOTE | 2023-10-08 11:26 | ECG_ITS ---
Measurements Intervals [place] Rate: 62 P: 68 [place]: 215 QRS: 79 QRSD: 135 T: 31 QT: 458 QTc: 467 Interpretive Statements SINUS RHYTHM WITH FIRST DEGREE AV BLOCK INCOMPLETE RIGHT BUNDLE BRANCH BLOCK ABNORMAL ECG COMPARED TO ECG 10/08/2023 07:05:23 SINUS RHYTHM NOW PRESENT NO SIGNIFICANT CHANGE Electronically Signed On 10-08-2023 15:07:25 WILDLIFE CONTROL OPERATOR by Sal Hamm M.D.
[2023-10-08] MEDS: NITROGLYCERIN SL 0.4 MG TABLET SUBLINGUAL (11:35)
--- NOTE | 2023-10-08 11:57 | SUR.PHASEII ---
1115 - Pt. was getting dressed and ready to discharge home. She suddenly started having severe upper abdomen / chest pain and shortness of breath. Pt. describes it as a pressure spanning around abdomen and chest. MD Whipple notified and at bedside. New orders for stat EKG, 0.4mg sublingual nitroglycerin, and oxygen. Troponin ordered and cardiology contacted.
[2023-10-08 12:26] LABS: Troponin I < 0.012 ng/mL (0.000-0.034)
--- NOTE | 2023-10-08 12:41 | SUR.PHASEII ---
MD Whipple contacted regarding troponin. at bedside. No new orders at this time - awaiting on cardiology consult.
--- NOTE | 2023-10-08 14:04 | SUR.PHASEII ---
MD Mccray (cardiology) at bedside to consult. Pt ok to discharge home per MD Mccray and MD Whipple. Pt. states they feel much better - pain is located in abdomen 5/10.
--- NOTE | 2023-10-08 14:15 | PM.CNCAR ---
Assessment and Plan Assessment and plan (1) Chest pain: Code(s): R07.9 - Chest pain, unspecified Status: Acute Plan This is an 82-year-old lady without prior cardiac history who had significant mid epigastric abdominal pain as well as some back pain after she got up to get following laparoscopic cholecystectomy. Pain in this area of course is not unexpected following insufflation of her abdomen for this operation. According to the staff the amount of pain was out of proportion to the expected symptoms after this sort of surgery. None the less it has essentially resolved her ECG shows ischemia or injury in her troponin level is negative. I believe she can be discharged at this point does not require initiation of ischemia workup. Sal Hamm MD [facility] History of Present Illness History of Present Illness Consult date/time: 10/08/23 14:15 Reason For Visit: cholelithiasis, hx gallstone and pancreatitis Narrative: This is very pleasant 82-year-old lady who I am seeing in the postop recovery area because of chest pain. She is not known to have heart disease and she is not known to me prior to this encounter. She was admitted today as an outpatient for an elective laparoscopic cholecystectomy was performed was performed this morning. According to the operative notes the procedure was uneventful. History of recent diagnosis of allison lithiasis and problematic gallstone pancreatitis. Following medical treatment for this she was seen in consultation and surgeons recommended a cholecystectomy to reduce the risk of future episodes of gallstone pancreatitis. The patient following her operation today was in the recovery area that when she stood up to get ready to go home she felt very unwell and had significant pain in the epigastrium that then radiated around into the midthoracic area of her back. The discomfort apparently was quite severe the staff sat her back down in her chair bound to be quite hypertensive and an ECG was performed there were no acute ST or T-wave abnormalities identified. She was given some nitroglycerin which brought her blood pressure down and out and her pain felt significantly improved after that. She reports to be feeling well at this time and would like to go home. Discharge after her cholecystectomy was the original plan from with the staff are telling me. She prior to this she is not known to have heart disease she states that she is an active woman at her age she performs life style activities she does not exercise is structured fashion but does not have any exertional symptoms that she has noticed specifically denies any chest pain orthopnea PND edema palpitations or syncope. Her electrocardiogram does show sinus rhythm with a right bundle branch block which is a chronic finding. She was not aware of her right bundle branch block and explained this in some detail to she and her family. Review of Systems Constitutional: Constitutional: Reports no additional constitutional complaints Eyes: Eyes: Reports no additional eye complaints ENT: Reports system reviewed and no additional complaints, except as documented Cardiovascular: Cardiovascular: Reports as per HPI Respiratory: Respiratory: Reports no additional respiratory complaints Gastrointestinal: Gastrointestinal: Reports as per HPI and Reports abdominal pain Genitourinary: Genitourinary: Reports no additional female genitourinary complaints Musculoskeletal: Musculoskeletal: Reports back pain Integumentary/Breasts: Skin/Breast: Reports system reviewed and no additional complaints, except as docu Neurologic: Reports system reviewed and no additional complaints, except as documented Endocrine: Endocrine: Reports no additional endocrine complaints Hematologic/Lymphatic: Hematologic/Lymphatic: Reports no additional hematologic/lymphatic complaints Allergic/Immunologic: Allergic/Immunologic: Reports no additional allergic/immunologic complaints
--- NOTE | 2023-10-08 14:17 | P.PNAN_ITS ---
Anes - Prog Note Post-Op Date/Time: 10/08/23 13:00 Vital Signs: Last Vital Signs Temp 36.4 C L 10/08/23 09:47 Pulse 53 L 10/08/23 13:45 Resp 16 10/08/23 13:45 BP 135/56 L 10/08/23 13:45 Pulse Ox 95 10/08/23 13:45 O2 Del Method Room Air 10/08/23 13:45 O2 Flow Rate 2 10/08/23 12:45 Pain Score (VAS): 10 I/O: Intake & Output 10/07/23 10/08/23 10/08/23 23:59 07:59 15:59 Intake Total 650 Balance 650 10/08/23 11:46 Troponin I < 0.012 Other Findings: While patient was getting up in second stage anesthesia, she reported crushing epigastric/chest pain. Although this could be attributed to the gas from the l aparoscopic surgery or the port site, the amount of pain seemed disproportionate. She then said the pain was radiating to her back and her sternum. Oxygen was administered and EKG, troponin and sublingual nitrate ordered. Blood pressure during this time was systolic in 200's and diastolic over 110. After sublingual nitrate given, pain seemed to improve and blood pressure did as well. EKG did not seem to show any changes from prior EKG and troponin came back negative. During this time cardiology was consulted to see if they agreed that there were no EKG changes and see their input if serial troponins were warranted. Patient at this time appears more comfortable.
== END 2023-10-08 14:20 | disposition home or self-care (01) ==
PROVIDERS: Anesthesiology; PCP Family Medicine; Visit Provider Surgery
PROC: 0FT44ZZ Resection of Gallbladder, Percutaneous Endoscopic Approach (ICD-10-PCS; CPT 47562; principal; 2023-10-08 08:30)
DX: K80.10 Calculus of gallbladder with chronic cholecystitis without obstruction (principal); R07.9 Chest pain, unspecified; I12.9 Hypertensive chronic kidney disease with stage 1 through stage 4 chronic kidney disease, or unspecified chronic kidney disease; N18.30 Chronic kidney disease, stage 3 unspecified; K21.9 Gastro-esophageal reflux disease without esophagitis; Z87.19 Personal history of other diseases of the digestive system
CPT/HCPCS: 47562; 36415; 84484; 88304; 93005; A9270; J0690; J1100; J1885; J2590; J2704; J3010; J7120

== ENCOUNTER 2023-10-09 14:05 | Inpatient (IN) | payer MEDICARE, MEDICAID, SELFPAY ==
[2023-10-09] VITALS (9 sets, daily range): BP systolic 156–174; BP diastolic 79–91; PULSE 56–68; RESP 14–21; TEMP 36.4–36.5; O2SAT 95–100
--- NOTE | ~2023-10-09 | XR_ITS ---
EXAMINATION: XR chest 2V DATE: 10/09/2023 15:47 INDICATION: Chest pain. TECHNIQUE: Frontal and lateral views of the chest were obtained. COMPARISON: Chest 2 views 03/05/2023 FINDINGS: There are airspace opacities at the lung bases. There is a small left pleural effusion. No pneumothorax. Cardiomegaly is noted. There is a large hiatal hernia. IMPRESSION: 1. Small left pleural effusion. 2. Airspace opacities at the lung bases, consistent with atelectasis versus pneumonia. 3. Cardiomegaly. 4. Large hiatal hernia. Reviewed, dictated and finalized at location A. [employer] IMPRESSION: 1. Small left pleural effusion. 2. Airspace opacities at the lung bases, consistent with atelectasis versus pne umonia. 3. Cardiomegaly. 4. Large hiatal hernia.
--- NOTE | ~2023-10-09 | XR_ITS ---
EXAMINATION: XR ERCP DATE: 10/10/2023 15:45 INDICATION: Acute pancreatitis. TECHNIQUE: 1 spot fluoroscopic image of the right upper quadrant were obtained during endoscopic retr ograde cholangiopancreatography (ERCP). Fluoroscopy exposure time was 161 seconds. COMPARISON: CT abdomen and pelvis 10/09/2023 FINDINGS: The endoscope is in the second portion the duodenum. There is contrast opacification of the common duct. The common duct is mildly dilated. IMPRESSION: 1. Mildly dilated common duct. Please refer to the ERCP procedure note for additional details. Reviewed, dictated and finalized at location A. ADMINISTRATOR IMPRESSION: 1. Mildly dilated common duct. Please refer to the ERCP procedure note for abbie tional details.
--- NOTE | ~2023-10-09 | CT_ITS ---
EXAMINATION: CT abdomen pelvis w con DATE: 10/09/2023 17:14 INDICATION: Postoperative pain at the right shoulder post cholecystectomy one day prior TECHNIQUE: Computed tomography (CT) of the abdomen and pelvis was performed with 100 mL Omnipaque-350 intravenous contrast. Automated exposure control and iterative reconstruction technique were employe d. The dose-length product was 687.15 mGy-cm. COMPARISON: CT dated 08/09/2023 and MRI dated 08/09/2023 FINDINGS: Atelectasis with volume loss in the bilateral lower lobes. This most peripancreatic stranding and sma ll amount of nonloculated fluid posteriorly as well as at the medial aspect of both lungs along the m argins of the tortuous aorta on the left and of a moderate to large sliding-type hiatal hernia on the right. Heart size is normal. No pericardial or pleural effusion. Again seen are several small low-at tenuation hepatic cysts the largest in the left hepatic lobe measuring 1.2 cm. Cholecystectomy clips the gallbladder fossa. There is new mild dilation of the common bile duct which measures up to 9 mm i n diameter which tapers smoothly at the distal duct with no evident obstructing stone or mass. No int rahepatic biliary ductal dilation. There is peripancreatic stranding and small amounts of nonloculate d peripancreatic fluid also extending more inferiorly along both the left and right anterior pararena l spaces. Stranding also extends caudally along the root of the mesentery. No abscess, free intraperi toneal gas or definitive free intraperitoneal fluid. Pancreas is otherwise unremarkable with no nonen hancing regions of parenchymal necrosis. Spleen and right adrenal gland are normal. 1.2 cm left adren al nodule most likely an adenoma with suggestion of signal dropout on the prior MRI post phase imagin g but too small for definitive assessment. Moderate diffuse left renal atrophy with regions of more f ocal severe cortical atrophy at both kidneys. There is mild right hydronephrosis. There are some urot helial enhancement at the left renal pelvis which can be seen with ascending urinary tract infection. Bladder is normal. There is moderate scattered colonic diverticulosis with a sigmoid predominance bu t without adjacent inflammatory change to suggest diverticulitis. Large amount stool throughout the c olon which could be seen with constipation. Small bowel and appendix are normal. The uterus is not id entified and has likely been surgically resected. No pathologically enlarged abdominal or pelvic lymp hadenopathy. Mild lower thoracic vertebral scoliosis and moderate lumbar dextro scoliosis with severe spondylosis. Chronic mild T12 compression fracture. Bipolar type right hip hemiarthroplasty. IMPRESSION: 1. Prominent peripancreatic stranding with scattered small amount of nonloculated retroperitoneal flu id around the pancreas and extending caudally along the bilateral anterior pararenal spaces consisten t with acute interstitial pancreatitis. 2. Postoperative change of interval cholecystectomy with no loculated fluid collections to suggest ab scess or definitive free intraperitoneal fluid collections to suggest biloma. 3. New mild dilation of the common bile duct which measures up to 9 mm without evident obstructing st one or mass likely related to the recent cholecystectomy. There is no evident cholelithiasis/choledoc holithiasis on the prior MRI. 4. Moderate to large sliding-type hiatal hernia. 5. Mild right and moderate left hydronephrosis. 6. Unchanged mild right hydronephrosis without evident obstructing lesion. 7. Mild urothelial enhancement the left renal pelvis which can be seen with ascending urinary tract i nfection. Correlate with urinalysis. 8. Diverticulosis with large amount of colonic stool which could be seen with postoperative ileus and constipation. Reviewed, dictated and finalized at location A. [employer]
--- NOTE | 2023-10-09 14:18 | ECG_ITS ---
Measurements Intervals [place] Rate: 64 P: 39 WI: 228 QRS: 48 QRSD: 133 T: 3 QT: 458 QTc: 474 Interpretive Statements SINUS RHYTHM WITH FIRST DEGREE AV BLOCK RIGHT BUNDLE BRANCH BLOCK [120+ ms QRS DURATION, UPRIGHT V1, 40+ ms S IN I/aVL/V4/V5/V6] COMPARED TO ECG 10/08/2023 11:35:56 RIGHT BUNDLE-BRANCH BLOCK NOW PRESENT Electronically Signed On 10-09-2023 15:22:55 [employer] by Naty Pedersen M.D.
--- NOTE | 2023-10-09 16:14 | ED.GENADULT ---
HPI - General Adult General Chief complaint: Unspecified Stated complaint: post-op pain Time Seen by Provider: 10/09/23 15:00 Source: patient Limitations: no limitations History of Present Illness HPI narrative: Patient is an 82-year-old female presents to the emergency department accompanied by family for chest tightness and bilateral shoulder discomfort. Patient states the discomfort started just prior to coming in today and has since nearly resolved. Patient states that she has a history of this chest tightness and it is diffuse and she was having in the hospital where she was just admitted and was discharged yesterday after having her gallbladder taken out and did have cardiology evaluation. Patient denies history of heart disease. Patient is to history of high blood pressure. Patient denies smoking. Patient denies cough, fever, diarrhea, melena, hematochezia, urinary discomfort, sore throat, nasal congestion, recent injuries, history of blood clots. Patient states that she has been taking Tylenol and Motrin for her abdominal discomfort which seems to be well controlled. Patient states that she was having the shoulder discomfort as well while in the hospital but he gets well controlled with her medications. Patient does admit to the chest tightness being worse when she takes a deep breath in. Related Data Home Medications Medication Instructions Recorded Confirmed multivitamin with minerals 1 tablet PO DAILY 07/19/21 10/08/23 (Hair,Skin and Nails tablet) hydrochlorothiazide 12.5 mg capsule 12.5 mg PO BID 08/09/23 10/08/23 losartan 50 mg tablet 50 mg PO DAILY 08/09/23 10/08/23 dicyclomine 20 mg tablet 20 mg PO BID PRN IBS 09/13/23 10/08/23 Prevagen 1 tab-cap DAILY 09/26/23 10/08/23 cholecalciferol (vitamin D3) 25 25 mcg PO DAILY 09/26/23 10/08/23 mcg (1,000 unit) tablet multivitamin 1 tablet PO DAILY 09/26/23 10/08/23 oxybutynin chloride 5 mg tablet 5 mg PO DAILY 09/26/23 10/08/23 Allergies Allergy/AdvReac Type Severity Reaction Status Date / Time No Known Allergies Allergy Verified 10/08/23 08:39 Review of Systems Review of Systems: A 10 system review of systems was completed on the patient and is negative except for what is stated in the HPI. Nursing and ancillary documentation was reviewed. 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 Family History Family History Father Diabetes mellitus Lung cancer Mother Acute myocardial infarction Social History Social History Smoking status: Never smoker Second hand tobacco smoke exposure: No Alcohol intake: never Substance use: never Substance use type: does not use Do You Feel Safe in your Home?: Yes Lack of Transportation: YES Lack of Food: Never True Current Housing: I Have Housing Concerned About Future Housing: No Difficulty Paying Gas/Electric Bills: No Difficulty Paying for Meds: No Currently Unemployed: No Education: Associate Degree Difficulty w/ Childcare or Family Care: No Living arrangements: alone Occupation/Education: retired Spiritual care concerns: No Comments At time of signature, I have reviewed and agree with nursing past medical, surgical, social and family history unless otherwise noted. Please see the
[2023-10-09 16:33] LABS: Basophils Percent Auto 0.4 % (0.2-1.2); Eosinophils Percent Auto 0.4 % (0-4.4); Hematocrit 44.2 % (37.0-47.0); Hemoglobin 14.3 g/dL (12.0-15.0); Immature Granulocyte Absolute 0.01 K/mm3 (0.00-0.031); Immature Granulocyte Percent A 0.1 % (0-0.5); Lymphocytes Absolute Auto 0.33 K/mm3 (0.9-3.2); Lymphocytes Percent Auto 4.6 % (18.3-44.2); Mean Corpuscular HGB Conc 32.4 g/dl (32-36); Mean Corpuscular Hemoglobin 28.3 pg (26-34); Mean Corpuscular Volume 87.5 fl (80-100); Mean Platelet Volume 9.1 fl (7.4-10.4); Monocytes Absolute Auto 0.3 K/mm3 (0.1-0.6); Monocytes Percent Auto 3.9 % (2.6-8.5); Neutrophils Absolute Auto 6.4 K/mm3 (1.3-6.7); Neutrophils Percent Auto 90.6 % (45.5-73.1); Platelet Count Result 218 k/mm3 (150-375); Red Blood Count 5.05 M/mm3 (4.2-5.4); Red Cell Distribution Width 13.3 % (11.5-14.5); White Blood Count 7.1 K/mm3 (4.5-10.0)
[2023-10-09] MEDS: SODIUM CHLORIDE 0.9% IV 1,000 ML 999 ML IV CONT (16:33)
[2023-10-09] MEDS: MORPHINE SULFATE (*CRX) 4 MG/ML INJ IV PUSH (16:34)
[2023-10-09 16:36] LABS: Appearance Urine Clear (Clear); Bacteria Urine None Seen /hpf; Bilirubin Urine 1+ (Negative); Color Urine Dark Yellow (Yellow); Glucose Urine UA Trace mg/dL (Negative); Ketones Urine Negative (Negative); Leukocyte Esterase Ur Trace LEU/UL (Negative); Nitrate Urine Negative (Negative); Non Pathogenic Casts 0-2; Protein Urine 2+ mg/dL (Negative); RBC Urine 0-2 /hpf (0-2); Specific Grav Ur 1.018 (1.001-1.035); Squamous Epithelial Cell Urine None seen /hpf (Few)
[2023-10-09 16:37] LABS: Add Urine Microscopic? YES
[2023-10-09 16:42] LABS: Lactic Acid Reflex 1.7 mmol/L (0.7-2.0)
[2023-10-09 16:45] LABS: Partial Thromboplastin Time 24.8 SECONDS (22.3-36.8); Prothrombin Time 13.5 Seconds (11.1-14.7)
[2023-10-09 16:52] LABS: Magnesium 2.1 mg/dL (1.6-2.3)
[2023-10-09 16:56] LABS: Troponin I < 0.012 ng/mL (0.000-0.034)
[2023-10-09 16:57] LABS: Albumin Level 3.8 g/dL (3.5-5.1); Alkaline Phosphatase 186 U/L (38-126); Anion Gap 4 mmol/L (8-16); Bilirubin,Total 3.1 mg/dL (0.2-1.3); Blood Urea Nitrogen 25 mg/dL (7-17); CRP 0.9 mg/dL (<1.0); Calcium 9.1 mg/dL (8.4-10.2); Carbon Dioxide 31 mmol/L (22-30); Chloride 104 mmol/L (98-107); Estimated CRCL calculation 36 ml/min; Estimated Glomerular Filt Rate 53; Glucose 171 mg/dL (65-110); Potassium 3.8 mmol/L (3.4-5.0); Sodium 139 mmol/L (137-145)
[2023-10-09 17:01] LABS: D Dimer 2.35 ug/mL (<0.48)
[2023-10-09 17:09] LABS: Influenza A QL RT-PCR Negative (Negative); Influenza B QL RT-PCR Negative (Negative); RSV RNA, RT-PCR Negative (Negative); SARS-CoV-2 RNA PCR Negative (Negative)
[2023-10-09 17:28] LABS: Alanine Aminotransferase 1262 U/L (6-35)
[2023-10-09 17:56] LABS: Lipase 28008 U/L (23-300)
[2023-10-09 17:57] LABS: Aspartate Amino Transferase 1561 U/L (14-36)
[2023-10-09 18:55] LABS: Triglycerides 95 mg/dL (<150)
--- NOTE | 2023-10-09 20:27 | PM.IMHP ---
H&P: HPI History of Present Illness Date/Time: 10/09/23 20:27 Chief Complaint: Chest tightness and bilateral shoulder pain Narrative: Patient is an 82-year-old female who had laparoscopic cholecystectomy yesterday, she presented to the emergency department accompanied by family for chest tightness and bilateral shoulder discomfort.?She stated that discomfort started just prior to coming in today but had improved significantly, she reported similar symptoms in the past and even had cardiology evaluation at recent admission. She reported associated nausea but no vomiting, no diarrhea, no abdominal distension.? Patient denies cough, fever, diarrhea, melena, hematochezia, urinary discomfort, sore throat, nasal congestion, recent injuries, history of blood clots.? Patient states that she was having the shoulder discomfort as well while in the hospital but he gets well controlled with her medications.? Patient does admit to the chest tightness being worse when she takes a deep breath in. She was evaluated in the ER and her EKG revealed no acute STT wave changes, however there is first-degree AV block with a right bundle branch block, she has elevated D-dimer of 2.25, negative venous Doppler ultrasound of the lower extremity in July 2023. Troponin x2 are negative, she has elevated liver enzymes and total bili, with lipase greater than 28,000. CT abdomen and pelvis with contrast showed diffuse inflamed pancreas with no stitches or abscess, mildly dilated CBD of about 9 mm with no obstructing stone. General surgery and GI had already been consulted, and I was called to admit this patient for for evaluation. Patient denies any symptoms currently, her vital signs are stable. 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 Family History Family History Father Diabetes mellitus Lung cancer Mother Acute myocardial infarction Social History Social History Smoking status: Never smoker Second hand tobacco smoke exposure: No Alcohol intake: never Substance use: never Substance use type: does not use Do You Feel Safe in your Home?: Yes Lack of Transportation: YES Lack of Food: Never True Current Housing: I Have Housing Concerned About Future Housing: No Difficulty Paying Gas/Electric Bills: No Difficulty Paying for Meds: No Currently Unemployed: No Education: Associate Degree Difficulty w/ Childcare or Family Care: No Living arrangements: alone Occupation/Education: retired Spiritual care concerns: No Meds Home Medications and Allergies Home Medications Medication Instructions Recorded Confirmed Type multivitamin with minerals 1 tablet PO DAILY 07/19/21 10/08/23 History (Hair,Skin and Nails tablet) psyllium husk 0.4 gram capsule 0.4 g PO DAILY #30 caps 08/07/23 10/08/23 Rx (Metamucil) hydrochlorothiazide 12.5 mg capsule 12.5 mg PO BID 08/09/23 10/08/23 History losartan 50 mg tablet 50 mg PO DAILY 08/09/23 10/08/23 History dicyclomine 20 mg tablet 20 mg PO BID PRN IBS 09/13/23 10/08/23 History Prevagen 1 tab-cap DAILY 09/26/23 10/08/23 History cholecalciferol (vitamin D3) 25 25 mcg PO DAILY 09/26/23 0
[2023-10-09] MEDS: SODIUM CHLORIDE 0.9% IV 1,000 ML 100 ML IV CONT (22:10)
--- NOTE | 2023-10-09 22:28 | ADMGEN ---
This patient, Berkley Wagoner, was admitted to [facility] Surg Room 329-01. Patient/family oriented to hospital policies and general routines including ID bracelet, bed and alarms, visiting hours, pain management, procedures, bathroom and other care routines, personal items, smoking policy, room service/diet, and visiting hours. Information on how to activate the Rapid Response Team has been discussed. Patient/Family are encouraged to report perceived risks to care and to ask questions if they do not understand what they are told or what they should do.
[2023-10-10] VITALS (14 sets, daily range): BP systolic 141–178; BP diastolic 63–82; PULSE 56–78; RESP 12–20; TEMP 36.5–37.4; O2SAT 92–100
[2023-10-10] MEDS: MORPHINE SULFATE (*CRX) 4 MG/ML INJ IV PUSH ×2 (02:02→05:37)
[2023-10-10 06:36] LABS: Basophils Percent Auto 0.5 % (0.2-1.2); Eosinophils Absolute Auto 0.1 K/mm3 (0-0.3); Eosinophils Percent Auto 1.4 % (0-4.4); Hematocrit 42.5 % (37.0-47.0); Hemoglobin 13.7 g/dL (12.0-15.0); Immature Granulocyte Absolute 0.04 K/mm3 (0.00-0.031); Immature Granulocyte Percent A 0.5 % (0-0.5); Lymphocytes Absolute Auto 0.55 K/mm3 (0.9-3.2); Lymphocytes Percent Auto 7.1 % (18.3-44.2); Mean Corpuscular HGB Conc 32.2 g/dl (32-36); Mean Corpuscular Hemoglobin 28.7 pg (26-34); Mean Corpuscular Volume 88.9 fl (80-100); Mean Platelet Volume 9.3 fl (7.4-10.4); Monocytes Absolute Auto 0.4 K/mm3 (0.1-0.6); Monocytes Percent Auto 5.2 % (2.6-8.5); Neutrophils Absolute Auto 6.6 K/mm3 (1.3-6.7); Neutrophils Percent Auto 85.3 % (45.5-73.1); Platelet Count Result 230 k/mm3 (150-375); Red Blood Count 4.78 M/mm3 (4.2-5.4); Red Cell Distribution Width 13.7 % (11.5-14.5); White Blood Count 7.7 K/mm3 (4.5-10.0)
[2023-10-10 06:42] LABS: Albumin Level 3.4 g/dL (3.5-5.1); Alkaline Phosphatase 187 U/L (38-126); Anion Gap 5 mmol/L (8-16); Aspartate Amino Transferase 679 U/L (14-36); Bilirubin,Total 1.6 mg/dL (0.2-1.3); Blood Urea Nitrogen 19 mg/dL (7-17); Calcium 8.4 mg/dL (8.4-10.2); Carbon Dioxide 28 mmol/L (22-30); Chloride 106 mmol/L (98-107); Estimated CRCL calculation 40 ml/min; Estimated Glomerular Filt Rate 60; Glucose 86 mg/dL (65-110); Potassium 3.8 mmol/L (3.4-5.0); Sodium 139 mmol/L (137-145)
[2023-10-10 06:56] LABS: Alanine Aminotransferase 821 U/L (6-35)
[2023-10-10] MEDS: oxyBUTYnin CHLORIDE 5 MG TABLET PO (08:07)
[2023-10-10] MEDS: hydroCHLOROthiazide 12.5 MG CAPSULE PO ×2 (08:07→16:26)
[2023-10-10] MEDS: LOSARTAN POTASSIUM 50 MG TABLET PO (08:07)
[2023-10-10] MEDS: SODIUM CHLORIDE 0.9% IV 1,000 ML 100 ML IV CONT (08:12)
--- NOTE | 2023-10-10 08:42 | WPDGICN ---
Assessment and Plan Assessment and plan (1) Acute pancreatitis: Qualifiers: Acute pancreatitis complication: unspecified Pancreatitis type: unspecified pancreatitis type Qualified Code(s): K85.90 - Acute pancreatitis without necrosis or infection, unspecified Code(s): K85.90 - Acute pancreatitis without necrosis or infection, unspecified Status: Acute Assessment and Plan: lipase over 28,000. I suspect this is due to gallstones in common bile duct. (2) Status post cholecystectomy: Code(s): Z90.49 - Acquired absence of other specified parts of digestive tract Status: Acute Assessment and Plan: Surgery was done 2 days ago. On that date her LFTs were normal but have jumped since then. (3) Elevated LFTs: Code(s): R79.89 - Other specified abnormal findings of blood chemistry Status: Acute Assessment and Plan: Most likely has choledocholithiasis. She also had pancreatitis in July when she was found have gallstones and probably has been passing stones. Plan He ERCP today. I explained her that her possible complications such as bleeding or perforation and about a 3% chance of pancreatitis developing or her case worsening. GI Consult Note Consult date/time: 10/10/23 08:42 HPI: Berkley Wagoner is a 82 year old female who underwent laparoscopic cholecystectomy 2 days ago. She was found to have gallstones when she was admitted with acute pancreatitis 2 months ago. She recovered from that. She had her cholecystectomy 2 days ago and felt find that day. She was taking Tylenol for pain. The next day she had some breakfast and developed pain that was primarily in her chest and radiated up to the shoulders. She also vomited. Pain has been persistent. On arrival here to the emergency room she was found to have pancreatitis again with a lipase 20,000. LFTs were elevated with AST 1561, ALT 1262. Bilirubin is 3.1. They have come down somewhat this morning. CT scan revealed some dilatation of the bile duct but no definite stones could be seen. 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 Family History Family History Father Diabetes mellitus Lung cancer Mother Acute myocardial infarction Social History Social History Smoking status: Never smoker Second hand tobacco smoke exposure: No Alcohol intake: never Substance use: never Substance use type: does not use Do You Feel Safe in your Home?: Yes Lack of Transportation: No Lack of Food: Never True Current Housing: I Have Housing Concerned About Future Housing: No Difficulty Paying Gas/Electric Bills: No Difficulty Paying for Meds: No Currently Unemployed: No Education: High School Diploma/GED Difficulty w/ Childcare or Family Care: No Living arrangements: alone Occupation/Education: retired Spiritual care concerns: No Meds Home Medications and Allergies Home Medications Medication Instructions Recorded Confirmed Type multivitamin with minerals 1 tablet PO DAILY 07/19/21 10/09/23 History (Hair,Skin and Nails tablet) psyllium husk 0.4 gram capsule 0.4 g
--- NOTE | 2023-10-10 10:23 | PM.CNGS ---
Assessment and Plan Assessment and plan (1) Acute pancreatitis: Qualifiers: Acute pancreatitis complication: unspecified Pancreatitis type: unspecified pancreatitis type Qualified Code(s): K85.90 - Acute pancreatitis without necrosis or infection, unspecified Code(s): K85.90 - Acute pancreatitis without necrosis or infection, unspecified Status: Acute Assessment and Plan: Lipase 28,[address] evidence of acute pancreatitis and new dilation of the common bile duct measuring up to 9 mm. No obvious obstructing common duct stone on CT. No evidence of pancreatic necrosis or pseudocyst on CT. LFTs are also elevated with her total bilirubin up to 3.1 on initial labs. This is all concerning for choledocholithiasis. Bilirubin trending down today and her pain has improved. It is also possible that she has passed a stone. GI is planning ERCP today. Continue medical management for the pancreatitis with bowel rest, IV fluids, and analgesics as needed. Trend labs. (2) Status post cholecystectomy: Code(s): Z90.49 - Acquired absence of other specified parts of digestive tract Status: Acute Assessment and Plan: Patient is postop day 2 following a laparoscopic cholecystectomy. Surgically she is doing well otherwise and incisions are healing well. CT shows expected postoperative changes and no loculated fluid collections near the gallbladder fossa that would be concerning for a bile leak or abscess. Continue medical management for acute pancreatitis and GI planning ERCP. (3) Elevated LFTs: Code(s): R79.89 - Other specified abnormal findings of blood chemistry Status: Acute Assessment and Plan: LFTs all elevated on admission with total bilirubin up to 3.1. Trending down on labs this morning with bilirubin at 1.6. Given the CT findings and pancreatitis, this is likely related to a passed or retained common duct stone. No CT evidence of postoperative biloma or abscess. GI planning ERCP today. Plan I have discussed the patient's case and plan of care with Dr. Melgar. History of Present Illness Consult details Consult date: 10/10/23 Reason for consult: other (Postoperative pancreatitis) Requesting physician: Manpreet Casey DO Narrative: This is an 82-year-old woman who recently had a laparoscopic cholecystectomy on 10/08/[address] Melgar for cholelithiasis and history of biliary pancreatitis. She reports discharging home after surgery and feeling overall well. She was taking pain medication as prescribed for some incisional soreness, but was able to sleep through the night. The next morning she felt well when she woke up. She tried eating a small pancakes, and then vomited following the meal. Shortly after, she developed pain across her chest and upper abdomen. This felt similar to her previous episode of pancreatitis and she called her daughter, who called EMS and was brought to [place] [facility]. Labs showed a normal white blood cell count, total bilirubin 3.1, AST 1561, ALT 1262, alk-phos 186, lipase 28,000, and troponin negative. EKG without ischemic changes. Chest x-ray with small left pleural effusion, airspace opacities at the lung bases consistent with atelectasis versus pneumonia, cardiomegaly, and large hiatal hernia. CT scan of the abdomen and pelvis showed prominent peripancreatic stranding with scattered small amount of nonloculated retroperitoneal fluid around the pancreas and extending caudally along the bilateral anterior pararenal spaces consistent with acute interstitial pancreatitis. Postoperative changes of an interval cholecystectomy were seen with no loculated fluid collections to suggest abscess or definitive free intraperitoneal fluid collections to suggest biloma. Also noted was new mild dilation of the common bile duct measuring up to 9 mm without evident obstructing stone or mass. Mild right and moderate left hydronephrosis, moderate to large sliding hiatal hernia, mild
--- NOTE | 2023-10-10 12:33 | PC.NURSE ---
Addendum entered by Ashlie Payton RN 10/10/23 13:32: Pt left at 1335 Original Note: This patient, Berkley Wagoner, was transferred. Getting ERCP WITH Dr. Bennett on 10/10/23 . Personal belongings sent with patient. Report given to [[facility]]. Appropriate documentation sent with patient.
[2023-10-10] MEDS: LACTATED RINGERS 1,000 ML 150 ML IV CONT (14:00)
--- NOTE | 2023-10-10 14:06 | WPDANESEPPF ---
Anes - Initial Pre Proc Eval Procedure: Operation Date: 10/10/23 14:00 Proposed Procedures p Endoscopic Retro Cholangiopancreatogram - Bartolome Bennett MD Date/Time: 10/10/23 14:06 Surgeon: Nevaeh Cochran MD Pre Op Diagnosis: Pancreatitis Patient Data Age: 82 Gender: F Height: 1.57 m Weight: 70.4 kg Last Vital Signs Temp 99.3 F 10/10/23 13:52 Pulse 78 10/10/23 13:52 Resp 18 10/10/23 13:52 BP 163/70 H 10/10/23 13:52 Pulse Ox 100 10/10/23 13:52 O2 Del Method Room Air 10/10/23 13:52 Allergies Allergy/AdvReac Type Severity Reaction Status Date / Time No Known Allergies Allergy Verified 10/10/23 13:47 Home Medications Medication Instructions Recorded Confirmed Type multivitamin with minerals 1 tablet PO DAILY 07/19/21 10/09/23 History (Hair,Skin and Nails tablet) psyllium husk 0.4 gram capsule 0.4 g PO DAILY #30 caps 08/07/23 10/09/23 Rx (Metamucil) hydrochlorothiazide 12.5 mg capsule 12.5 mg PO BID 08/09/23 10/09/23 History losartan 50 mg tablet 50 mg PO DAILY 08/09/23 10/09/23 History Prevagen 1 tab-cap DAILY 09/26/23 10/09/23 History cholecalciferol (vitamin D3) 25 25 mcg PO DAILY 09/26/23 10/09/23 History mcg (1,000 unit) tablet oxybutynin chloride 5 mg tablet 5 mg PO DAILY 09/26/23 10/09/23 History acetaminophen 325 mg tablet 650 mg PO Q6H PRN Pain (Scale 10/09/23 10/09/23 History (Tylenol) Score 1-3) docusate sodium 100 mg capsule 100 mg PO DAILY 10/09/23 10/09/23 History (Stool Softener) hydrocodone 5 mg-acetaminophen 325 1 tablet PO Q6H PRN Pain (Scale 10/09/23 10/09/23 History mg tablet Score 7-10) ibuprofen 200 mg tablet 200 mg PO Q6H PRN Pain (Scale 10/09/23 10/09/23 History Score 4-6) Laboratory Tests 10/09/23 10/09/23 10/10/23 16:25 16:25 05:56 WBC 7.1 K/mm3 7.7 K/mm3 (4.5-10.0) (4.5-10.0) RBC 5.05 M/mm3 4.78 M/mm3 (4.2-5.4) (4.2-5.4) Hgb 14.3 g/dL 13.7 g/dL (12.0-15.0) (12.0-15.0) Hct 44.2 % 42.5 % (37.0-47.0) (37.0-47.0) MCV 87.5 fl 88.9 fl (80-100) (80-100) MCH 28.3 pg 28.7 pg (26-34) (26-34) MCHC 32.4 g/dl 32.2 g/dl (32-36) (32-36) RDW 13.3 % 13.7 % (11.5-14.5) (11.5-14.5) Plt Count 218 k/mm3 230 k/mm3 (150-375) (150-375) MPV 9.1 fl 9.3 fl (7.4-10.4) (7.4-10.4) Immature Gran % (Auto) 0.1 % 0.5 % (0-0.5) (0-0.5) Neut % (Auto) 90.6 H % 85.3 H % (45.5-73.1) (45.5-73.1) Lymph % (Auto) 4.6 L % 7.1 L % (18.3-44.2) (18.3-44.2) [place] % (Auto) 3.9 % 5.2 % (2.6-8.5) (2.6-8.5) Eos % (Auto) 0.4 % 1.4 % (0-4.4) (0-4.4) Baso % (Auto) 0.4 % 0.5 % (0.2-1.2) (0.2-1.2) Lymph # (Auto) 0.33 L K/mm3 0.55 L K/mm3 (0.9-3.2) (0.9-3.2) [place] # (Auto) 0.3 K/mm3 0.4 K/mm3 (0.1-0.6) (0.1-0.6) Eos # (Auto) 0.0 K/mm3 0.1 K/mm3 (0-0.3) (0-0.3) Baso # (Auto) 0.0 K/mm3 0.0 K/mm3 (0.0-0.1) (0.0-0.1) Abs Immat Gran (auto) 0.01 K/mm3 0.04 H K/mm3 (0.00-0.031) (0.00-0.031) Absolute Neuts (auto) 6.4 K/mm3 6.6 K/mm3 (1.3-6.7) (1.3-6.7) Absolute Nucleated RBC 0.0 K/mm3 0.0 K/mm3 (0.0-0.012) (0.0-0.012) Nucleated RBC % 0.0 % 0.0 % (0.0-0.2) (0.0-0.2) PT 13.5 Seconds (11.1-14.7) INR 1.0 APTT 24.8 SECONDS (22.3-36.8) D-Dimer 2.35 H ug/mL Cancelled (<0.48) Sodium 139 mmol/L 139 mmol/L (137-145) (137-145) Potassium 3.8 mmol/L 3.8 mmol/L (3.4-5.0) (3.4-5.0) Chloride 104 mmol/L 106 mmol/L (98-107) (98-107) Carbon Dioxide 31 H mmol/L 28 mmol/L (22-30) (22-30) Anion Gap 4 L mmol/L 5 L mmol/L (8-16) (8-16) BUN 25 H mg/dL 19 H mg/dL (7-17) (7-17) Creatinine 1.00 mg/dL 0.90 mg/dL (0.7-1.0) (0.7-1.0) Estim Creat Clear Calc 36 ml/min 40 ml/min Estimated GFR 53 L 6
--- NOTE | 2023-10-10 15:50 | PC.NURSE ---
Returned from GI Lab. Report received from [[facility]].
--- NOTE | 2023-10-10 18:20 | PM.IMPN ---
Progress Note: A&P Assessment and Plan (1) Acute pancreatitis: Qualifiers: Acute pancreatitis complication: unspecified Pancreatitis type: unspecified pancreatitis type Qualified Code(s): K85.90 - Acute pancreatitis without necrosis or infection, unspecified Code(s): K85.90 - Acute pancreatitis without necrosis or infection, unspecified Status: Acute Assessment and Plan: s/p Laparoscopic cholecystectomy, 10/08/23 EGD, 10/10/23: Choledocholithiasis. (2) Elevated transaminase level: Code(s): R74.01 - Elevation of levels of liver transaminase levels Status: Deleted (3) Status post cholecystectomy: Code(s): Z90.49 - Acquired absence of other specified parts of digestive tract Status: Acute Assessment and Plan: Plan Acute and principal conditions 1. Acute Pancreatitis 2. s/p Cholecystectomy, 10/08/23 s/p EGD: Choledocholithiasis Advance diet as tolerated Chronic and stable conditions 1. Obesity, BMI 28. 2. OAB. 3. Hypertension. on Losartan Time Spent With Patient Time with patient: 25 - 35 minutes Subjective Date/time seen: 10/10/23 18:20 Interval history: Seen and examined; being managed for acute pancreatitis Review of Systems Review of Systems: All systems reviewed & are unremarkable except as noted in HPI and below Constitutional: Constitutional: Reports no additional constitutional complaints Eyes: Eyes: Reports no additional eye complaints ENT: Reports system reviewed and no additional complaints, except as documented Cardiovascular: Cardiovascular: Reports no additional cardiovascular complaints Respiratory: Respiratory: Reports no additional respiratory complaints Gastrointestinal: Gastrointestinal: Reports abdominal pain Genitourinary: Genitourinary: Denies dysuria and Denies flank pain Musculoskeletal: Musculoskeletal: Reports no additional musculoskeletal complaints Integumentary/Breasts: Skin/Breast: Reports system reviewed and no additional complaints, except as docu Neurologic: Reports system reviewed and no additional complaints, except as documented Psychiatric: Psychiatric: Reports no additional psychiatric complaints Exam Narrative: CONST: No acute distress. Well nourished. HENMT: Head is normocephalic and atraumatic. Moist mucous membranes. No posterior oropharynx erythema. EYES: No conjunctival icterus, injection, or pallor. PERRL. NECK: No meningeal signs. ? No JVD. RESP: Able to speak in full sentences. Normal respiratory effort. CTAB. CARDIO: Regular rate. Regular rhythm. 2+ DP and radial pulses bilaterally. GI: Nondistended. No tenderness to palpation. Soft. ? Multiple well-healing surgical incision sites without tenderness or significant surrounding erythema or fluctuance. : No CVA tenderness to palpation. SKIN: No rashes or lesions noted on exposed skin. NEURO: Oriented x3. Moves all extremities. EXTREM/MSK/BACK: No pedal edema. PSYCH: Normal affect. ? Objective Data Vital Signs Vital Signs: Vital Signs - 24 hr 10/09/23 21:10 10/09/23 22:00 10/09/23 21:45 Temperature 97.5 F L Pulse Rate 59 L 61 Respiratory Rate 17 14 Blood Pressure 157/83 H 156/81 H Pulse Oximetry 100 96 Oxygen Delivery Room Air 10/10/23 02:00 10/10/23 06:00 10/10/23 13:52 Temperature 97.7 F 99.3 F Pulse Rate 65 78 Respiratory Rate 16 18 Blood Pressure 178/77 H 170/82 H 163/70 H Pulse Oximetry 92 100 Oxygen Delivery Room Air 10/10/23 14:47 10/10/23 14:57 10/10/23 15:07 Temperature Pulse Rate 60 63 61 Respiratory Rate 18 18 15 Blood Pressure 152/74 H 145/74 H 147/73 H Pulse Oximetry 100 100 100 Oxygen Delivery Room Air Room Air Room Air 10/10/23 15:17 10/10/23 15:26 10/10/23 15:34 Temperature Pulse Rate 73 56 L 57 L Respiratory Rate 20 20 12 Blood Pressure 165/82 H 160/74 H 141/76 H Pulse Oximetry 97 97 97 Oxygen Delivery Room Air Room Air Room Air 10/10/23 15:50 10/10/23
[2023-10-10 22:36] LABS: Lipase 7592 U/L (23-300)
[2023-10-11] MEDS: SODIUM CHLORIDE 0.9% IV 1,000 ML 100 ML IV CONT ×2 (00:32→11:39)
[2023-10-11 06:00] VITALS: BP 150/70; PULSE 76; RESP 16; TEMP 37.7; O2SAT 94
[2023-10-11 06:45] LABS: Basophils Percent Auto 0.3 % (0.2-1.2); Eosinophils Absolute Auto 0.1 K/mm3 (0-0.3); Eosinophils Percent Auto 0.7 % (0-4.4); Hemoglobin 12.4 g/dL (12.0-15.0); Immature Granulocyte Absolute 0.05 K/mm3 (0.00-0.031); Immature Granulocyte Percent A 0.5 % (0-0.5); Lymphocytes Absolute Auto 0.56 K/mm3 (0.9-3.2); Lymphocytes Percent Auto 5.5 % (18.3-44.2); Mean Corpuscular HGB Conc 32.6 g/dl (32-36); Mean Corpuscular Hemoglobin 28.5 pg (26-34); Mean Corpuscular Volume 87.4 fl (80-100); Mean Platelet Volume 9.8 fl (7.4-10.4); Monocytes Absolute Auto 0.6 K/mm3 (0.1-0.6); Monocytes Percent Auto 6.2 % (2.6-8.5); Neutrophils Absolute Auto 8.9 K/mm3 (1.3-6.7); Neutrophils Percent Auto 86.8 % (45.5-73.1); Platelet Count Result 202 k/mm3 (150-375); Red Blood Count 4.35 M/mm3 (4.2-5.4); Red Cell Distribution Width 13.8 % (11.5-14.5); White Blood Count 10.2 K/mm3 (4.5-10.0)
[2023-10-11 07:03] LABS: Alanine Aminotransferase 447 U/L (6-35); Alkaline Phosphatase 150 U/L (38-126); Anion Gap 3 mmol/L (8-16); Aspartate Amino Transferase 194 U/L (14-36); Bilirubin,Total 1.4 mg/dL (0.2-1.3); Blood Urea Nitrogen 14 mg/dL (7-17); Carbon Dioxide 26 mmol/L (22-30); Chloride 104 mmol/L (98-107); Estimated CRCL calculation 44 ml/min; Estimated Glomerular Filt Rate > 60; Glucose 136 mg/dL (65-110); Lipase 585 U/L (23-300); Potassium 3.2 mmol/L (3.4-5.0); Sodium 133 mmol/L (137-145)
--- NOTE | 2023-10-11 07:13 | WPDGIPROGNO ---
Progress Note: A&P Assessment and Plan (1) Acute pancreatitis: Qualifiers: Acute pancreatitis complication: unspecified Pancreatitis type: unspecified pancreatitis type Qualified Code(s): K85.90 - Acute pancreatitis without necrosis or infection, unspecified Code(s): K85.90 - Acute pancreatitis without necrosis or infection, unspecified Status: Acute Assessment and Plan: lipase over 28,000. I suspect this is due to gallstones in common bile duct. lipase is down to 585. At ERCP only a few tiny particles came out with the balloon sweep suggesting that some stones had passed prior to the procedure I will start her on a low-fat diet. She is feeling much better today. I told her that she will need to be on low-fat diet for couple of weeks. (2) Status post cholecystectomy: Code(s): Z90.49 - Acquired absence of other specified parts of digestive tract Status: Acute Assessment and Plan: Surgery was done 2 days ago. On that date her LFTs were normal but have jumped since then. (3) Elevated LFTs: Code(s): R79.89 - Other specified abnormal findings of blood chemistry Status: Acute Assessment and Plan: Most likely has choledocholithiasis. She also had pancreatitis in July when she was found have gallstones and probably has been passing stones. LFTs continued to come down nicely Plan ERCP today. I explained her that her possible complications such as bleeding or perforation and about a 3% chance of pancreatitis developing or her case worsening. she tolerated the ERCP well. Because of sphincterotomy was done it is unlikely she would have any more episodes of gallstone pancreatitis even have other calculi do form in the bile duct.. From my perspective she can be discharged if she tolerates her diet this morning. Subjective Date/time seen: 10/11/23 07:13 she feels much better this morning. She tolerated her clear liquids last night. She would like to try low-fat diet today. I explained her that we would want her to be on a low-fat diet for the next several weeks due to her having had pancreatitis now twice within a couple of months. Exam Const: General: cooperative and healthy appearing Orientation/consciousness: patient oriented x3 HENMT: Head: normal to inspection Ears: hearing grossly normal bilaterally Mouth: Yes Normal oral and palatal mucosa present Eyes: General: appearance normal, both eyes and all related structures Neck: Neck: normal visual inspection Chest: Chest palpation & inspection: normal inspection of the chest Resp: Effort & Inspection: normal respiratory effort Auscultation: clear to auscultation bilaterally Cardio: Rate: regular rate Rhythm: regular rhythm GI: Inspection: normal to inspection GI Palp: Yes abdominal tenderness ( Much less than yesterday), Yes Soft to palpation and Yes No hepatosplenomegaly present Auscultation: normal bowel sounds Skin: General skin exam: normal color and no jaundice Neuro: General: patient oriented x3 Speech: normal speech Objective Data Vital Signs Vital Signs: Vital Signs - 24 hr 10/10/23 13:52 10/10/23 14:47 10/10/23 14:57 Temperature 37.4 C Pulse Rate 78 60 63 Respiratory Rate 18 18 18 Blood Pressure 163/70 H 152/74 H 145/74 H Pulse Oximetry 100 100 100 Oxygen Delivery Room Air Room Air Room Air 10/10/23 15:07 10/10/23 15:17 10/10/23 15:26 Temperature Pulse Rate 61 73 56 L Respiratory Rate 15 20 20 Blood Pressure 147/73 H 165/82 H 160/74 H Pulse Oximetry 100 97 97 Oxygen Delivery Room Air Room Air Room Air 10/10/23 15:34 10/10/23 15:50 10/10/23 16:05 Temperature 37.1 C 36.8 C Pulse Rate 57 L 67 63 Respiratory Rate 12 18 16 Blood Pressure 141/76 H 153/77 H 169/63 H Pulse Oximetry 97 95 96 Oxygen Delivery Room Air 10/10/23 16:35 10/10/23 17:35 10/10/23 19:45 Temperature 36.8 C 36.9 C Pulse Rate 64 73 Respiratory Rate 16 16 Blood
[2023-10-11] MEDS: hydroCHLOROthiazide 12.5 MG CAPSULE PO (07:59)
[2023-10-11] MEDS: LOSARTAN POTASSIUM 50 MG TABLET PO (07:59)
[2023-10-11] MEDS: oxyBUTYnin CHLORIDE 5 MG TABLET PO (07:59)
--- NOTE | 2023-10-11 11:39 | WPDANESPN ---
Anes - Prog Note Post-Op Date/Time: 10/11/23 11:39 Cardiovascular status: normal Respiratory status: normal Airway patency: baseline Mental status: baseline Post-Op hydration status: normal Vital Signs: Last Vital Signs Temp 37.7 C H 10/11/23 06:00 Pulse 76 10/11/23 06:00 Resp 16 10/11/23 06:00 BP 150/70 H 10/11/23 06:00 Pulse Ox 94 10/11/23 06:00 O2 Del Method Room Air 10/10/23 19:45 Pain Score (VAS): 10/06 I/O: Intake & Output 10/10/23 10/11/23 10/11/23 23:59 07:59 15:59 Intake Total 1118 240 Balance 1118 240 Laboratory Tests 10/11/23 05:42 10/11/23 05:42 10/10/23 10/11/23 05:56 05:42 WBC 10.2 H RBC 4.35 Hgb 12.4 Hct 38.0 MCV 87.4 MCH 28.5 MCHC 32.6 RDW 13.8 Plt Count 202 MPV 9.8 Immature Gran % (Auto) 0.5 Neut % (Auto) 86.8 H Lymph % (Auto) 5.5 L [place] % (Auto) 6.2 Eos % (Auto) 0.7 Baso % (Auto) 0.3 Lymph # (Auto) 0.56 L [place] # (Auto) 0.6 Eos # (Auto) 0.1 Baso # (Auto) 0.0 Abs Immat Gran (auto) 0.05 H Absolute Neuts (auto) 8.9 H Absolute Nucleated RBC 0.0 Nucleated RBC % 0.0 Sodium 133 L Potassium 3.2 L Chloride 104 Carbon Dioxide 26 Anion Gap 3 L BUN 14 D Creatinine 0.80 Estim Creat Clear Calc 44 Estimated GFR > 60 Glucose 136 H Calcium 8.0 L Total Bilirubin 1.4 H AST 194 H ALT 447 H Alkaline Phosphatase 150 H Total Protein 6.0 L Albumin 3.0 L Lipase 7592 H 585 H Microbiology 10/09/23 16:25 Urine Clean Catch Urine Culture - Final Post-procedural complaints: none Patient Feedback: Patient satisfied with anesthetic care.
[2023-10-11] MEDS: POTASSIUM CHLORIDE 20 MEQ PACKET (FOR LIQUID) 40 MEQ PO (11:51)
--- NOTE | 2023-10-11 11:53 | WPDPN ---
Progress Note: A&P Assessment and Plan (1) Status post cholecystectomy: Code(s): Z90.49 - Acquired absence of other specified parts of digestive tract Status: Acute Assessment and Plan: Patient had a laparoscopic cholecystectomy earlier this week and likely had a gallstone mild the gallbladder during the surgery which cause this episode of acute gallstone pancreatitis. Surgically she is healing well she was told to keep her follow-up point seen in the office in 1 to 2 weeks. (2) Acute pancreatitis: Qualifiers: Acute pancreatitis complication: unspecified Pancreatitis type: unspecified pancreatitis type Qualified Code(s): K85.90 - Acute pancreatitis without necrosis or infection, unspecified Code(s): K85.90 - Acute pancreatitis without necrosis or infection, unspecified Status: Acute Assessment and Plan: Improved and lipase is now down to 500. Her pain is much better as well. ERCP done yesterday showed no retained common bile duct stone it likely had passed. Sphincterotomy was performed. I think she can discharge from the hospital today since she is tolerating regular diet and is feeling very good. (3) Elevated LFTs: Code(s): R79.89 - Other specified abnormal findings of blood chemistry Status: Acute Assessment and Plan: Normalizing. Subjective Date/time seen: 10/11/23 11:53 Interval history: Patient is doing very well today. She had ERCP yesterday with sweeping of the common bile duct. Appears a gallstone probably already passed. She did have a sphincterotomy performed. Liver enzymes and total bilirubin are all markedly decreased today. Lipase is down to 500. She feels very good and tolerated low-fat diet this morning. No abdominal pain. Exam GI: Other: Abdomen is soft and nondistended nontender. Laparoscopic port site incisions from her outpatient laparoscopic cholecystectomy earlier this week are healing well without redness or drainage. Objective Data Vital Signs Vital Signs: Vital Signs - 24 hr 10/10/23 13:52 10/10/23 14:47 10/10/23 14:57 Temperature 37.4 C Pulse Rate 78 60 63 Respiratory Rate 18 18 18 Blood Pressure 163/70 H 152/74 H 145/74 H Pulse Oximetry 100 100 100 Oxygen Delivery Room Air Room Air Room Air 10/10/23 15:07 10/10/23 15:17 10/10/23 15:26 Temperature Pulse Rate 61 73 56 L Respiratory Rate 15 20 20 Blood Pressure 147/73 H 165/82 H 160/74 H Pulse Oximetry 100 97 97 Oxygen Delivery Room Air Room Air Room Air 10/10/23 15:34 10/10/23 15:50 10/10/23 16:05 Temperature 37.1 C 36.8 C Pulse Rate 57 L 67 63 Respiratory Rate 12 18 16 Blood Pressure 141/76 H 153/77 H 169/63 H Pulse Oximetry 97 95 96 Oxygen Delivery Room Air 10/10/23 16:35 10/10/23 17:35 10/10/23 19:45 Temperature 36.8 C 36.9 C Pulse Rate 64 73 Respiratory Rate 16 16 Blood Pressure 163/72 H 148/71 H Pulse Oximetry 96 97 Oxygen Delivery Room Air 10/10/23 19:55 10/11/23 06:00 Temperature 37.2 C 37.7 C H Pulse Rate 68 76 Respiratory Rate 20 16 Blood Pressure 159/70 H 150/70 H Pulse Oximetry 99 94 Oxygen Delivery Intake/Output Intake/Output: Intake & Output 10/08/23 10/09/23 10/10/23 10/11/23 23:59 23:59 23:59 23:59 Intake Total 1000 2118 1240 Balance 1000 2118 1240 Meds/Results Medications: Active Medications Generic Name Dose Route Start Last Admin Trade Name Freq PRN Reason Stop Dose Admin Hydrocodone Bitart/Acetaminophen 1 tab 10/10/23 05:48 Hydrocodone/Acetaminophen (*Crx) 5-325 Mg Tablet PO Q6H PRN Pain (Scale Score 7-10) Hydrochlorothiazide 12.5 mg 10/10/23 09:00 10/11/23 07:59 Hydrochlorothiazide 12.5 Mg Capsule PO 12.5 mg BID [place] Administration Sodium Chloride 1,000 mls @ 125 mls/hr 10/09/23 19:35 Normal Saline Iv IV CONT .Q8H [place] Sodium Chloride 1,000 mls @ 100 mls/hr 10/09/23 20:45 10/11/23 11:39 Normal Saline Iv IV CONT
--- NOTE | 2023-10-11 12:01 | PM.DS ---
DS: Admitting Diagnosis Discharge Date 10/11/23 Admitting Diagnosis 1. Acute pancreatitis DS: Discharge Diagnosis Discharge Diagnosis (1) Acute pancreatitis: Qualifiers: Acute pancreatitis complication: unspecified Pancreatitis type: unspecified pancreatitis type Qualified Code(s): K85.90 - Acute pancreatitis without necrosis or infection, unspecified Code(s): K85.90 - Acute pancreatitis without necrosis or infection, unspecified Status: Acute Assessment and Plan: s/p Laparoscopic cholecystectomy, 10/08/23 EGD, 10/10/23: Choledocholithiasis. (2) Elevated transaminase level: Code(s): R74.01 - Elevation of levels of liver transaminase levels Status: Deleted Assessment and Plan: Maybe 09/28 choledocholithiasis (3) Status post cholecystectomy: Code(s): Z90.49 - Acquired absence of other specified parts of digestive tract Status: Acute Assessment and Plan: Plan Acute and principal conditions 1. Acute Pancreatitis 2. s/p Cholecystectomy, 10/08/23 s/p EGD: Choledocholithiasis Advance diet as tolerated Chronic and stable conditions 1. Obesity, BMI 28. 2. OAB. 3. Hypertension. on Losartan DS: Summary Hospital Course Hospital Course: Chief Complaint: Chest tightness and bilateral shoulder pain Narrative: Patient is an 82-year-old female who had laparoscopic cholecystectomy yesterday, she presented to the emergency department accompanied by family for chest tightness and bilateral shoulder discomfort.?She stated that discomfort started just prior to coming in today but had improved significantly, she reported similar symptoms in the past and even had cardiology evaluation at recent admission.? She reported associated nausea but no vomiting, no diarrhea, no abdominal distension.? Patient denies cough, fever, diarrhea, melena, hematochezia, urinary discomfort, sore throat, nasal congestion, recent injuries, history of blood clots.? Patient states that she was having the shoulder discomfort as well while in the hospital but he gets well controlled with her medications.? Patient does admit to the chest tightness being worse when she takes a deep breath in.? Significant findings: EKG revealed no acute STT wave changes, however there is first-degree AV block with a right bundle branch block D-dimer of 2.25 Negative venous Doppler ultrasound of the lower extremity in July 2023.? Troponin x2 are negative Elevated liver enzymes and total bili, with Lipase greater than 28,000. CT abdomen and pelvis with contrast showed diffuse inflamed pancreas with no stitches or abscess, mildly dilated CBD of about 9 mm with no obstructing stone.? Genera Surgery and GI were consulted, . Acute and principal conditions 1. Acute Pancreatitis Choledocholithiasis 2. s/p Cholecystectomy, 10/08/23 s/p EGD/ERCP: Choledocholithiasis Advance diet as tolerated Chronic and stable conditions 1. Obesity, BMI 28. 2. OAB. 3. Hypertension. on Losartan Procedures performed: ERCP Treatment rendered: Analgesia, IVFs; low fat diet Status at Discharge Overall status at discharge: patient is progressing back to baseline Time Spent with Patient Time attestation: Total time spent providing and/or coordinating discharge services: Time spent: Greater than 30 minutes Exam Narrative: CONST: No acute distress. Well nourished. HENMT: Head is normocephalic and atraumatic. Moist mucous membranes. No posterior oropharynx erythema. EYES: No conjunctival icterus, injection, or pallor. PERRL. NECK: No meningeal signs. ? No JVD. RESP: Able to speak in full sentences. Normal respiratory effort. CTAB. CARDIO: Regular rate. Regular rhythm. 2+ DP and radial pulses bilaterally. GI: Nondistended. No tenderness to palpation. Soft. ? Multiple well-healing surgical incision sites without tenderness or significant surrounding erythema or fluctuance. : No CVA tenderness to palpation. SKIN: No rashes or
[2023-10-11 14:00] VITALS: BP 152/70; PULSE 72; RESP 18; TEMP 37.3; O2SAT 96
== END 2023-10-11 15:55 | disposition home or self-care (01) | DRG 439 ==
LOC: ANHED 18:19 → ANH3MEDSUR 20:12
PROVIDERS: Internal Medicine Gastroenterology; Nurse Practitioner Family; Admitting Provider Student in an Organized Health Care Education/Training Program; Emergency Provider Student in an Organized Health Care Education/Training Program; PCP Family Medicine; Visit Provider Internal Medicine
PROC: 0FC98ZZ Extirpation of Matter from Common Bile Duct, Via Natural or Artificial Opening Endoscopic (ICD-10-PCS; CPT 43260; principal; 2023-10-10 14:00)
DX: K85.10 Biliary acute pancreatitis without necrosis or infection (principal); K91.86 Retained cholelithiasis following cholecystectomy; Z90.49 Acquired absence of other specified parts of digestive tract; G62.9 Polyneuropathy, unspecified; I12.9 Hypertensive chronic kidney disease with stage 1 through stage 4 chronic kidney disease, or unspecified chronic kidney disease; I44.0 Atrioventricular block, first degree; N18.30 Chronic kidney disease, stage 3 unspecified; Z90.710 Acquired absence of both cervix and uterus; Z96.651 Presence of right artificial knee joint; Z20.822 Contact with and (suspected) exposure to COVID-19
CPT/HCPCS: 36415; 71046; 74177; 74329; 80053; 81001; 83605; 83690; 83735; 84443; 84478; 84484; 85025; 85380; 85610; 85730; 86140; 87086; 87637; 88304; 93005; 96361; 96374; 96376; 99285; A9270; G0378; J0690; J1100; J1610; J1885; J2270; J2371; J2590; J2704; J3010; J7030; J7120; Q9966; Q9967

== ENCOUNTER 2025-03-25 09:47 | Outpatient (CLI) | payer MEDICARE, MEDICAID, SELFPAY ==
[2025-03-25 10:00] LABS: Hematocrit 39.1 % (35.0-42.0); Hemoglobin 12.4 g/dL (11.7-13.8); Immature Granulocyte Percent A 0.3 % (0.0-0.0); Lymphocytes Absolute Auto 0.71 K/mm3 (1.10-4.50); Mean Corpuscular HGB Conc 31.7 g/dL (32-36); Mean Corpuscular Hemoglobin 28.0 pg (27.0-31.0); Mean Corpuscular Volume 88.3 fL (78.0-102.0); Nucleated Red Blood Cells Absolute Auto 0.00 K/mm3 (0.00-0.00); Nucleated Red Blood Cells Perc 0.0 % (0-0.0); Platelet Count Result 264 K/mm3 (150-420); Red Blood Count 4.43 M/mm3 (4.20-5.40); White Blood Count 6.0 K/mm3 (4.8-10.8)
--- OUTSIDE RECORDS SUMMARY | 2025-03-25 10:10 | XMS_ITS | Clinical Summary ---
Author Organization [facility] Address [address] [place] [address] Care Team Providers Care Social Media Analyst Name Role Phone Sera Miller DRAWING HAND Primary Care Provider [phone] Allergies No known active allergies Medications MULTIPLE VITAMIN-FOLIC ACID OR Take 1 tablet by mouth daily. Active hydroCHLOROthi azide (MICROZIDE) 12.5 MG capsule Take 1 capsule (12.5 mg total) by mouth every morning. Active losartan (COZAAR) 50 MG tablet Take 1 tablet (50 mg total) by mouth daily. Active Psyllium-Calci um (METAMUCIL PLUS CALCIUM) Cap Take 1 tablet by mouth daily. Active triamcinolone (KENALOG) 0.1 % cream Triamcinolone Acetonide 0.1 % External [id number] 7 Active oxybutynin (DITROPAN) 5 MG tablet Take 1 tablet (5 mg total) by mouth 3 (three) times daily. 90 tablet 3 Active Active Problems Problem Noted Date Diagnosed Date Orthopedic aftercare 03/19/2023 Closed displaced fracture of right femoral neck ([facility]) 03/05/2023 Fracture of femoral neck, right, closed ([facility]) 03/05/2023 Other dysphagia 12/10/2020 Overview (03/05/2023): Required esophageal dilation in 2019 Rectal prolapse 11/11/2020 Overview (03/05/2023): Added automatically from request for surgery [id number] Hypertension 12/15/2014 Family History Medical History Relation Comments Cancer Brother 2 Cancer Father Heart Attack Mother Relation Status Comments Brother 1 Alive Brother 2 Alive Father Mother Social History Tobacco Use Types Packs/Day Years Used Date Smoking Tobacco: Never Smokeless Tobacco: Never Tobacco Cessation:Counseling Given: Not Answered Alcohol Use Standard Drinks/Week Comments Not Currently 0 (1 standard drink = 0.6 oz pur e alcohol) Humiliation, Afraid, Rape, and Kick questionnair e Answer Date Recorded Within the last year, have y ou been afraid of your partner or ex-partner? No 03/06/2023 Within the last year, have y ou been humiliated or emotionally abused in other ways by your partner or ex-partner? No Within the last year, have y ou been kicked, hit, slapped, or otherwise physically hurt by your partner or ex-partner? No 03/06/2023 Within the last year, have y ou been raped or forced to have any kind of sexual activity by your partner or ex-partner? No 03/06/2023 Overall Financial Resource Strain (CARDIA) Answe r Date Recorded How hard is it for you to pa y for the very basics like food, housing, medical care, and heating? Not hard at all 03/06/2023 Hunger Vital Sign Answer Date Recorded Within the past 12 months, y ou worried that your food would run out before you got the money to buy more. Never true 03/06/20 23 Within the past 12 months, t he food you bought just didn't last and you didn't have money to get more. Never true 03/06/2023 PRAPARE - Transportation Answer Date Re corded In the past 12 months, has l ack of transportation kept you from medical appointments or from getting medications? No 02/24 In the past 12 months, has l ack of transportation kept you from meetings, work, or from getting things needed for daily living? No 03/06/2023 Housing Stability Vital Sign Answer Satinder e Recorded In the last 12 months, was t here a time when you were not able to pay the mortgage or rent on time? No 03/06/2023 In the last 12 months, how many places have you lived? 1 03/06/2023 In the last 12 months, was t here a time when you did not have a steady place to sleep or slept in a chcf (including now)? No 03/06/2023 Comments Unknown Sex and Gender Information Value Date Recorded Sex Assigned at Not on file Legal Sex Female 10:20 PM QUILLER MACHINE FIXER Gender Identity Not on file Sexual Orientation Not on file Last Filed Vital Signs Vital Sign Reading Time Taken Comments Blood Pressure 118/59 03/08/2023 1:16 PM CDT Pulse 71 03/08/2023 1:16 PM CDT Temperature 36.5 C (97.7 F) 03/08/2023 1:16 PM CDT Respiratory Rate 18 03/08/2023 1:16 PM CDT Oxygen Saturation 98% 03/08/2023 1:16 PM CDT Inhaled Oxygen Concentration - - Weight 68 kg (150 lb) 05/22/2023 1:42 PM CDT Height 165.1 cm (5' 5) 05/22/2023 1:42 PM CDT Body Mass Index 24.96 05/22/2023 1:42 PM CDT Plan of Treatment Health Maintenance Due Date Last Done Comments DTaP, Tdap and Td Vaccines (1 - Tdap) 1960 Pneumococcal Vaccine: 50+ Years (1 of 1 - PCV) 11/08/1991 Annual Medicare Wellness Visit 2006 Dexa Scan (General) 2006 RSV Immunization or 60+ Years (1 - 1-dose 75+ series) 2016 Zoster Vaccines (3 of 3) 09/20/2021 07/26/2021, 02/26 COVID-19 Vaccine ( - season) 2024 08/07/2022, 07/26/2021, 10/19/2020, Additional history exists Meningococcal B Vaccine Aged Out No l onger eligible based on patient's age to complete this topic Meningococcal Vaccine Aged Out No cesario meka eligible based on patient's age to complete this topic RSV Immunizations Under 20 Months Aged Out No longer eligible based on patient's age to complete this topic Medical Devices Implanted Type Area Painter And Grader Cork Device Identifier Shelf Expiration Date Model / Serial / Lot Head Depuy Self Centering Bi Polar 47 X 28 - [id number] Implanted:Qty : 1 on 03/05/2023 by Fracisco Horton MD at [facility] Hip Components Right: Femur DEPUY [id number] 10/25/2027 [id number] / / [id number] M-Spec Metal Femoral Head Implanted:Qty : 1 on 03/05/2023 by Fracisco Horton MD at [facility] Right: Femur [employer] 09/26/2027 [id number] / / [id number] Femoral Stem 08/09 Taper Acits Duofix Hip Prothesis Cementless Implanted:Qty : 1 on 03/05/2023 by Fracisco Horton MD at [facility] Right: Femur [employer] [id number] 11/25/2031 [id number] / / [id number] Insurance [facility] MEDICAID Advance Directives Documents on File Type Date Recorded Patient Assistant Tennis Coach Expl anation Advance Directives and Living Will 11/12/2017 12:00 AM POWER OF TOWER ATTENDANT Advance Directives and Living Will 11/12/2017 12:00 AM POWER OF TOWER ATTENDANT Advance Directives and Living Will 11/12/2017 12/18/2014 POLST DNR (Do Not Resuscitate) Documentation 01/12/2015 12:00 AM DO NOT RESUSCITATE * POLST (Latest Code Status on File) Date Activated Date Inactivated Comments 03/05/2023 4:39 PM 03/08/2023 5:18 PM Question Answer Comments Cardiopulmonary Resuscitatio n (CPR) If patient has no pulse and is not breathing: DO NOT Attempt Resuscitation CPR Medical Interventions when N OT in Cardiopulmonary Arrest (If patient is found with a pulse and/or is breathing): Comfort Focused - Do NOT Intubate Care Teams Social Media Analyst Relationship Specialty Start Date End Date Sera Miller, MELIA [address] [place] [address] PCP - General NURSE PRACTITIONER 10/25/22
--- OUTSIDE RECORDS SUMMARY | 2025-03-25 10:10 | XMS_ITS | Referral Summary ---
Author Organization [facility] Address [address] [place] [id number] Care Team Providers Care Vascular Ultrasound Technician Name Role Phone Trenton Amezcua MD Unavailable + Colin Osborne MD Unavailable [phone] Faisal Bailey DO Primary Care Provider Allergies No known active allergies Medications losartan (COZAAR) 50 mg tabletIndications :hypertension Take 1 tablet (50 mg total) by mouth every morning 1 Active oxybutynin XL (DITROPAN-XL) 5 mg 24 hr tabletIndications :Bladder Hyperactivity Take 1 tablet (5 mg total) by mouth every morning 1 Active amitriptyline (ELAVIL) 25 mg tablet Take 1 tablet (25 mg total) by mouth nightly sleep Active multivit-min/ferr ous fumarate (MULTI VITAMIN ORAL) Take 1 tablet by mouth every morning Active psyllium husk-calcium 1-60 gram-mg capsuleIndication s:constipation Take 1 tablet by mouth every morning Active multivitamin with minerals (HAIR,SKIN AND NAILS ORAL) Take 1 tablet by mouth every morning Active oxyCODONE (ROXICODONE) 5 mg immediate release tabletIndications :Pain Take 1 tablet (5 mg total) by mouth every 4 (four) hours as needed (pain not controlled by other medicines. Take with food.) 7 tablet 1 Active Additional Information Patient not taking.Reported on 09/12/2023 Active Problems Problem Noted Date Diagnosed Date Varicose veins of both lower extremities with pa in 09/13/2023 Assessment & Plan (09/13/2023 12:39 PM EYELET MACHINE OPERATOR): Impression: Patient complains of throbbing to bilateral lower extremities with prolonged standing. Patient has a history of a left medial malleolus ulceration which remains healed. Discolorations are noted to bilateral ankles. Plan: Recommend compression stockings. Prescription for 20 30 mmHg compression stockings given to patient. -patient to follow-up in 3 months for re-evaluation with venous reflux study. Primary hypertension 09/13/2023 Assessment & Plan (09/13/2023 12:38 PM EYELET MACHINE OPERATOR): Impression: Chronic with elevated blood pressure this office visit. Patient denies any chest pain, palpitations, shortness of breath, lightheadedness headaches or nausea or vomiting. Plan: Recommend patient to monitor blood pressures at home and notify primary care provider for elevated blood pressure for further management. Other dysphagia 12/10/2020 Overview (12/10/2020): Required esophageal dilation in 2019 Rectal prolapse 11/11/2020 Overview (11/11/2020): Added automatically from request for surgery [id number] Social History Tobacco Use Types Packs/Day Years Used Date Smoking Tobacco: Never Smokeless Tobacco: Never AUDIT-C Answer Date Recorded Q1: How often do you have a drink containing alc ohol? Monthly or less 12/09/2020 Q2: How many drinks containi ng alcohol do you have on a typical day when you are drinking? 1 or 2 12/09/2020 Q3: How often do you have si x or more drinks on one occasion? Never 12/09/2020 Comments Unknown Sex and Gender Information Value Date Recorded Sex Assigned at Not on file Legal Sex Female 8:30 PM EYELET MACHINE OPERATOR Gender Identity Not on file Sexual Orientation Not on file Last Filed Vital Signs Vital Sign Reading Time Taken Comments Blood Pressure 174/78 09/12/2023 11:18 AM EYELET MACHINE OPERATOR patient has not taken medication yet, REPAIR OPERATOR made aware Pulse 76 09/12/2023 11:18 AM EYELET MACHINE OPERATOR Temperature 35.9 C (96.6 F) 01/11/2021 11:10 AM CDT Respiratory Rate 15 12/11/2020 12:3 9 PM CDT Oxygen Saturation 97% 09/12/2023 11: 18 AM EYELET MACHINE OPERATOR Inhaled Oxygen Concentration - - Weight 78 kg (172 lb) 01/11/2021 11:10 AM CDT Height 162.6 cm (5' 4) 01/11/2021 11:1 0 AM CDT Body Mass Index 29.52 01/11/2021 11:10 AM CDT Plan of Treatment Not on file Medical Devices Implanted Type Area Microfilm Mounter Device Identifier Shelf Expiration Date Model / Serial / Lot [employer]ol Inc/C R Bard [id number] Soft Mesh 6x6in Patch Knitted Flat Sheet Groin Hernia Square Mesh - [id number] Implanted:Qty: 1 on 12/09/2020 by Colin Osborne MD at [facility] Mesh N/A: Abdomen [employer] Inc/C R Bard 04/23/2025 [id number] / / [id number] Joint Bilateral: Knee Insurance [facility] MDCR HMO REF [facility] Address: [address] [address] [place] [address] IDPA [facility] MEDICARE ADVANTAGE [facility] Address: [address] [address] [place] [address] [facility] MEDICARE ADVANTAGE [facility] Address: [address] [address] [place] [address] Advance Directives For more information, please contact: [phone] * Full Code (Latest Code Status on File) Date Activated Date Inactivated Comments 12/09/2020 1:13 PM 12/11/2020 8:49 PM Care Teams Vascular Ultrasound Technician Relationship Specialty Start Date End Date Faisal Bailey DO [address] [place] [address] PCP - General 12/09/20 Trenton Amezcua MD [address] [place] [address] Referring Physician Gastroenterology 10/14/20 Colin Osborne MD [phone] [place] [address] Surgeon Colon and Rectal Surgery 11/09/20
--- OUTSIDE RECORDS SUMMARY | 2025-03-25 10:10 | XMS_ITS | Clinical Summary ---
Author Organization [facility] Address [address] [place] [address] Care Team Providers Care Vp Foundation Name Role Phone Trenton Amezcua MD Unavailable + Colin Osborne MD Unavailable [phone] Faisal Bailey DO Primary Care Provider Allergies [...] 09/13/2023 Assessment & Plan (09/13/2023 12:39 PM EDGER MACHINE OPERATOR): Impression: Patient complains of throbbing [...] 09/13/2023 Assessment & Plan (09/13/2023 12:38 PM EDGER MACHINE OPERATOR): Impression: Chronic with elevated blood [...] (11/11/2020): Added automatically from request for surgery [id number] Surgical History Surgery Date Site/Laterality Comments HYSTERECTOMY COLONOSCOPY REPLACEMENT TOTAL KNEE RECTAL PROLAPSE REPAIR, RECTOPEXY 12/09/2020 Robotic ventral mesh rectopexy Medical History Medical History Date Comments HTN (hypertension) Arthritis Neuropathy Rectal prolapse PONV (postoperative nausea and vomiting) Family History Medical History Relation Name Comments Anesthesia problems Neg Hx Social History Tobacco Use Types Packs/Day Years [...] on file Legal Sex Female 8:30 PM EDGER MACHINE OPERATOR Gender Identity Not on file Sexual Orientation Not on file Obstetrics History Last Filed Vital Signs Vital Sign Reading Time Taken Comments Blood Pressure 174/78 09/12/2023 11:18 AM EDGER MACHINE OPERATOR patient has not taken medication yet, SENIOR SHAREPOINT DEVELOPER made aware Pulse 76 09/12/2023 11:18 AM EDGER MACHINE OPERATOR Temperature 35.9 C (96.6 F) 01/11/2021 11:10 AM CDT Respiratory Rate 15 12/11/2020 12:3 9 PM CDT Oxygen Saturation 97% 09/12/2023 11: 18 AM EDGER MACHINE OPERATOR Inhaled Oxygen Concentration - - Weight 78 kg (172 lb) 01/11/2021 11:10 AM CDT Height 162.6 cm (5' 4) 01/11/2021 11:1 0 AM CDT Body Mass Index 29.52 01/11/2021 11:10 AM CDT Plan of Treatment Health Maintenance Due Date Last Done Comments Depression Screening 1941 Osteoporosis Screening-Bone Density Scan 1941 DTaP/Tdap/Td Vaccine (1 - Tdap) 1952 Hepatitis B Screening 11/08/1959 Pneumococcal vaccine 65+ (1 of 1 - PCV) 11/08/1991 Well Visit 65+ 2006 Zoster Vaccine (2 of 3) 05/20/2014 03/25/2014 Fall Risk Assessment 12/11/2021 12/11/2020 Influenza Vaccine (#1) 2025 06/02/2020, 2018 Medical Devices Implanted Type Area Broadcast Operations Director Device Identifier Shelf Expiration Date Model / Serial / Lot Davol Inc/C R Bard [id number] Soft Mesh 6x6in Patch Knitted Flat Sheet Groin Hernia Square Mesh - [id number] Implanted:Qty: 1 on 12/09/2020 by Colin Osborne MD at [facility] Mesh N/A: Abdomen [employer] Inc/C R Bard 04/23/2025 [id number] / / [id number] Joint Bilateral: Knee Insurance [facility] IDPA IDPA [facility] MEDICARE ADVANTAGE [facility] MEDIC[facility] ADVANTAGE Advance Directives For more information, please contact: [phone] * Full Code (Latest Code Status on File) Date Activated Date Inactivated Comments 12/09/2020 1:13 PM 12/11/2020 8:49 PM Care Teams Vp Foundation Relationship Specialty Start Date End Date Faisal Bailey DO [address] [place] [address] PCP - General 12/09/20 Trenton Amezcua MD [address] [place] [address] Referring Physician Gastroenterology 10/14/20 Colin Osborne MD [phone] [place] [address] Surgeon Colon and Rectal Surgery 11/09/20
--- OUTSIDE RECORDS SUMMARY | 2025-03-25 10:10 | XMS_ITS | Encounter Summary ---
Author Organization [facility] Address [facility] [place] [address] Care Team Providers Care Industrial Maintenance Tech Name Role Phone Sera Miller Primary Care Provider [phone] Encounter Details Date Type Department Care Team (Late st Contact Info) Description 02/01/2019 Abstract SFL CONVERSION [address] [place] [address] , Generic Conversion, Social History Tobacco Use Types Packs/Day Years Used Date Smoking Tobacco: Never Assessed Comments Unknown Sex and Gender Information Value Date Recorded Sex Assigned at Not on file Legal Sex Female 10:20 PM CANDY ROLLER Gender Identity Not on file Sexual Orientation Not on file documented as of this encounter Plan of Treatment Not on file documented as of this encounter Visit Diagnoses Not on filedocumented in this encounter Care Teams Industrial Maintenance Tech Relationship Specialty Start Date End Date Sera Miller FNP [address] [place] [address] PCP - General NURSE PRACTITIONER 10/25/22 documented as of this encounter
[2025-03-25 10:15] LABS: Hemoglobin A1C 5.3 % (<5.7)
[2025-03-25 10:34] LABS: Alanine Aminotransferase 20 U/L (6-35); Albumin Level 3.9 g/dL (3.5-5.1); Alkaline Phosphatase 92 U/L (38-126); Anion Gap 5 mmol/L (4-12); Aspartate Amino Transferase 30 U/L (14-36); Bilirubin,Total 0.7 mg/dL (0.2-1.3); Blood Urea Nitrogen 20 mg/dL (7-17); Calcium 8.7 mg/dL (8.4-10.2); Carbon Dioxide 27 mmol/L (22-30); Chloride 113 mmol/L (98-107); Cholesterol 203 mg/dL (0-200); Estimated Glomerular Filt Rate 45; Glucose 107 mg/dL (65-110); HDL Direct 41 mg/dL; Osmolality Calculated 302 mOsm/kg (285-295); Potassium 3.7 mmol/L (3.4-5.0); Sodium 145 mmol/L (137-145); Total Protein 6.8 g/dL (6.3-8.2); Triglycerides 153 mg/dL (<150)
[2025-03-25 11:04] LABS: Thyroid Stimulating Hormone Reflex 1.580 uIU/mL (0.465-4.68)
== END 2025-03-25 09:48 | disposition home or self-care (01) ==
PROVIDERS: PCP Family Medicine; Visit Provider Family Medicine
DX: E11.9 Type 2 diabetes mellitus without complications (principal); N18.30 Chronic kidney disease, stage 3 unspecified; E03.9 Hypothyroidism, unspecified; I12.9 Hypertensive chronic kidney disease with stage 1 through stage 4 chronic kidney disease, or unspecified chronic kidney disease
CPT/HCPCS: 36415; 80053; 80061; 83036; 84443; 85025

== ENCOUNTER 2025-04-13 12:34 | Outpatient (CLI) | payer MEDICARE, SELFPAY ==
--- NOTE | ~2025-04-13 | US_ITS ---
EXAMINATION: US arterial ankle brachial ind DATE: 04/13/2025 13:14 INDICATION: Peripheral vascular disease TECHNIQUE: Segmental pressures and plethysmographic and Doppler waveforms of the brachial and lower e xtremity arteries were obtained. COMPARISON: None. FINDINGS: Right and left brachial artery pressures of 117 mm Hg and 126 mm Hg, respectively, are concordant (no rmal difference <= 30 mmHg). The right ankle-brachial index (KAEL) is 1.16 (normal >= 0.9-1.0). The right great toe-brachial index (TBI) is 0.80 (normal >= 0.65). Arterial Doppler waveforms demonstrate brisk systolic upstrokes at liana th the right posterior tibial and dorsalis pedis arteries. The left KAEL is 1.16. The left TBI is 0.67. Arterial Doppler waveforms demonstrate brisk systolic ups trokes at both left posterior tibial and dorsalis pedis arteries. IMPRESSION: 1. No significant arterial occlusive disease with normal bilateral KAEL and TBIs. Reviewed, dictated and finalized at location A. IMPRESSION: 1. No significant arterial occlusive disease with normal bilateral KAEL and TBIs .
--- OUTSIDE RECORDS SUMMARY | 2025-04-13 13:18 | XMS_ITS | Clinical Summary ---
Author Organization [facility] Address [address] [place] [id number] Care Team Providers Care Compound Coating Machine Offbearer Name Role Phone Trenton Amezcua MD Unavailable + Colin Osborne MD Unavailable [phone] Faisal Bailey DO Primary Care Provider Allergies [...] 09/13/2023 Assessment & Plan (09/13/2023 12:39 PM TRAVEL DIRECTOR): Impression: Patient complains of throbbing to bilateral [...] 09/13/2023 Assessment & Plan (09/13/2023 12:38 PM TRAVEL DIRECTOR): Impression: Chronic with elevated blood pressure this [...] (11/11/2020): Added automatically from request for surgery [id number] Surgical History Surgery Date Site/Laterality Comments HYSTERECTOMY [...] on file Legal Sex Female 8:30 PM TRAVEL DIRECTOR Gender Identity Not on file Sexual Orientation Not on file Obstetrics History Last Filed Vital Signs Vital Sign Reading Time Taken Comments Blood Pressure 174/78 09/12/2023 11:18 AM TRAVEL DIRECTOR patient has not taken medication yet, CONTACT REPRESENTATIVE made aware Pulse 76 09/12/2023 11:18 AM TRAVEL DIRECTOR Temperature 35.9 C (96.6 F) 01/11/2021 11:10 AM CDT Respiratory Rate 15 12/11/2020 12:3 9 PM CDT Oxygen Saturation 97% 09/12/2023 11: 18 AM TRAVEL DIRECTOR Inhaled Oxygen Concentration - - Weight 78 [...] 06/02/2020, 2018 Medical Devices Implanted Type Area Water Quality Assistant Device Identifier Shelf Expiration Date Model / Serial / Lot Davol Inc/C R Bard [id number] Soft Mesh 6x6in Patch Knitted Flat Sheet Groin Hernia Square Mesh - [id number] Implanted:Qty: 1 on 12/09/2020 by Colin Osborne MD at [facility] Mesh N/A: Abdomen [employer] Inc/C R Bard 04/23/2025 [id number] / / [id number] Joint Bilateral: Knee [facility] Address: [address] [address] [place] [address] IDPA IDPA [facility] MEDICARE ADVANTAGE [facility] Address: [address] [address] [place] [address] [facility] MEDICARE ADVANTAGE [facility] Address: [facility] [address] [place] [address] Advance Directives For more information, please contact: [phone] * Full Code (Latest Code Status on File) Date Activated Date Inactivated Comments 12/09/2020 1:13 PM 12/11/2020 8:49 PM Care Teams Compound Coating Machine Offbearer Relationship Specialty Start Date End Date Faisal Bailey DO [address] [place] [address] PCP - General 12/09/20 Trenton Amezcua MD [address] [place] [address] Referring Physician Gastroenterology 10/14/20 Colin Osborne MD [phone] [place] [address] Surgeon Colon and Rectal Surgery 11/09/20
== END 2025-04-13 12:35 | disposition home or self-care (01) ==
LOC: CHSIMG 12:35
PROVIDERS: PCP Family Medicine; Visit Provider Family Medicine
DX: I73.9 Peripheral vascular disease, unspecified (principal)
CPT/HCPCS: 93922

== ENCOUNTER 2025-04-20 08:22 | Outpatient (CLI) | payer MEDICARE, SELFPAY ==
--- NOTE | 2025-04-20 08:29 | EST_ITS ---
Patient Info Name: Berkley Wagoner Age: 84 years : 1940 Gender: Female Ht: 62 in Wt: 153 lbs BSA: 1.76 m2 HR: 98 bpm Heart Rhythm: Bradycardia Technical Quality: Good Exam Date: 04/20/2025 8:29 AM Patient Status: O Admit Date: 04/20/2025 Exam Type: CA stress daphney w NM A regadenoson stress test was performed. Staff Referring Physician: Faisal Bailey Attending Provider: Faisal Bailey Summary 1. 1. Negative Lexiscan stress test for ischemic ST changes by ECG criteria. 2. 2. Baseline hypertension. 3. 3. Nuclear scan to follow and will be reported separately. Please correlate with it. History/Risk Factors Hypertension: Yes Protocol: LEXISCAN Stress ECG Details Stage: REST Duration (min): 2 min : 18 sec HR (bpm): 48 SBP (mmHg): 199 DBP (mmHg): 89 Stage: REST Duration (min): 4 min : 29 sec HR (bpm): 44 SBP (mmHg): 192 DBP (mmHg): 86 Stage: STAGE 1 Duration (min): 0 min : 22 sec HR (bpm): 41 SBP (mmHg): 192 DBP (mmHg): 86 Stage: RECOVERY Duration (min): 0 min : 37 sec HR (bpm): 51 SBP (mmHg): 192 DBP (mmHg): 86 Stage: RECOVERY Duration (min): 1 min : 37 sec HR (bpm): 70 SBP (mmHg): 192 DBP (mmHg): 86 Stage: RECOVERY Duration (min): 2 min : 37 sec HR (bpm): 62 SBP (mmHg): 106 DBP (mmHg): 79 Stage: RECOVERY Duration (min): 3 min : 37 sec HR (bpm): 58 SBP (mmHg): 136 DBP (mmHg): 75 Stage: RECOVERY Duration (min): 3 min : 50 sec HR (bpm): 58 SBP (mmHg): 136 DBP (mmHg): 75 Stage: RECOVERY Duration (min): 4 min : 37 sec HR (bpm): 58 SBP (mmHg): 136 DBP (mmHg): 75 Stage: RECOVERY Duration (min): 5 min : 37 sec HR (bpm): 55 SBP (mmHg): 138 DBP (mmHg): 73 Stage: RECOVERY Duration (min): 6 min : 37 sec HR (bpm): 55 SBP (mmHg): 138 DBP (mmHg): 73 Stage: RECOVERY Duration (min): 7 min : 37 sec HR (bpm): 59 SBP (mmHg): 137 DBP (mmHg): 72 Stage: RECOVERY Duration (min): 8 min : 37 sec HR (bpm): 54 SBP (mmHg): 138 DBP (mmHg): 74 Stage: RECOVERY Duration (min): 9 min : 37 sec HR (bpm): 55 SBP (mmHg): 137 DBP (mmHg): 74 Stage: RECOVERY Duration (min): 10 min : 37 sec HR (bpm): 55 SBP (mmHg): 140 DBP (mmHg): 68 Stage: RECOVERY Duration (min): 11 min : 37 sec HR (bpm): 55 SBP (mmHg): 140 DBP (mmHg): 68 Stage: RECOVERY Duration (min): 12 min : 13 sec HR (bpm): 52 SBP (mmHg): 130 DBP (mmHg): 68 Rest HR: 44 bpm Peak HR: 70 bpm Rest Sys BP: 192 mmHg Peak Sys BP: 140 mmHg Max Pred HR: 137 bpm % Max Pred HR: 51 % Target HR: 116 bpm Max RPP: 9,800 bpm*mmHg BP Response: Normal blood pressure response Termination Reason: Completed Protocol Cardiac Symptoms: None Total Time: 0 min : 22 sec Rest Valdovinos BP: 86 mmHg Peak Valdovinos BP: 68 mmHg Total Dose: 0.4 mg Resting ECG Sinus bradycardia, RBBB. Stress ECG No ST abnormality. Arrhythmias Occasional PACs. Report Signatures
--- OUTSIDE RECORDS SUMMARY | 2025-04-20 08:33 | XMS_ITS | Clinical Summary ---
Author Organization [facility] Address [address] [place] [address] Care Team Providers Care Silk Screen Printer Machine Name Role Phone Sera Miller ELECTRIC SIGN WIRER Primary Care Provider [phone] Allergies No known active allergies Medications MULTIPLE [...] % cream Triamcinolone Acetonide 0.1 % External [id number] ve 7 Active oxybutynin (DITROPAN) 5 MG tablet Take 1 tablet (5 mg total) by mouth 3 (three) times daily. 90 tablet 3 Active Active Problems Problem Noted Date Diagnosed Date Orthopedic aftercare 03/19/2023 Closed displaced fracture of right femoral neck ([facility]) 03/05/2023 Fracture of femoral neck, right, closed ([facility]) 03/05/2023 Other dysphagia 12/10/2020 Overview (03/05/2023): Required esophageal dilation in 2019 Rectal prolapse 11/11/2020 Overview (03/05/2023): Added automatically from request for surgery [id number] Hypertension 12/15/2014 Family History Medical History Relation [...] place to sleep or slept in a [place] health care facility (including now)? 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 Gender Identity Not on file Sexual Orientation [...] this topic Medical Devices Implanted Type Area Alarm Installer Device Identifier Shelf Expiration Date Model / Serial / Lot Head Depuy Self Centering Bi Polar 47 X 28 - [id number] Implanted:Qty : 1 on 03/05/2023 by Fracisco Horton MD at [facility] [employer] Right: Femur DEPUY [id number] 10/25/2027 [id number] / / [id number] M-Spec Metal Femoral Head Implanted:Qty : 1 on 03/05/2023 by Fracisco Horton MD at [facility] Right: Femur [employer] 09/26/2027 1365-12-500 / / [id number] Femoral Stem 08/09 Taper Acits Duofix Hip Prothesis Cementless Implanted:Qty : 1 on 03/05/2023 by Fracisco Horton MD at [facility] Right: Femur [employer] [id number] 11/25/2031 1010-12-050 / / [id number] Insurance [facility] MEDICAID Advance Directives Documents on File Type Date Recorded Patient Tap Puller Expl anation Advance Directives and Living Will 11/12/2017 12:00 AM POWER OF LPC Advance Directives and Living Will 11/12/2017 12:00 AM POWER OF LPC Advance Directives and Living Will 11/12/2017 12/18/2014 [...] Focused - Do NOT Intubate Care Teams Silk Screen Printer Machine Relationship Specialty Start Date End Date Sera Miller, MELIA [address] [place] [address] PCP - General NURSE PRACTITIONER 10/25/22
--- OUTSIDE RECORDS SUMMARY | 2025-04-20 08:34 | XMS_ITS | Clinical Summary ---
Author Organization [facility] Address [address] [place] [id number] Care Team Providers Care Cutlet Maker Pork Name Role Phone Trenton Amezcua MD Unavailable + Colin Osborne MD Unavailable [phone] Faisal Bailey DO Primary Care Provider Allergies [...] 09/13/2023 Assessment & Plan (09/13/2023 12:39 PM DIAGNOSTIC RADIOLOGIC TECHNOLOGIST): Impression: Patient complains of throbbing to bilateral [...] 09/13/2023 Assessment & Plan (09/13/2023 12:38 PM DIAGNOSTIC RADIOLOGIC TECHNOLOGIST): Impression: Chronic with elevated blood pressure this [...] (11/11/2020): Added automatically from request for surgery [id number] Surgical History Surgery Date Site/Laterality Comments HYSTERECTOMY [...] on file Legal Sex Female 8:30 PM DIAGNOSTIC RADIOLOGIC TECHNOLOGIST Gender Identity Not on file Sexual Orientation Not on file Obstetrics History Last Filed Vital Signs Vital Sign Reading Time Taken Comments Blood Pressure 174/78 09/12/2023 11:18 AM DIAGNOSTIC RADIOLOGIC TECHNOLOGIST patient has not taken medication yet, FLOOR FINISHER made aware Pulse 76 09/12/2023 11:18 AM DIAGNOSTIC RADIOLOGIC TECHNOLOGIST Temperature 35.9 C (96.6 F) 01/11/2021 11:10 AM CDT Respiratory Rate 15 12/11/2020 12:3 9 PM CDT Oxygen Saturation 97% 09/12/2023 11: 18 AM DIAGNOSTIC RADIOLOGIC TECHNOLOGIST Inhaled Oxygen Concentration - - Weight 78 [...] 06/02/2020, 2018 Medical Devices Implanted Type Area Matcher Offbearer Device Identifier Shelf Expiration Date Model / Serial / Lot [employer]ol Inc/C R Bard [id number] Soft Mesh 6x6in Patch Knitted Flat Sheet Groin Hernia Square Mesh - [id number] Implanted:Qty: 1 on 12/09/2020 by Colni Osborne MD at [facility] Mesh N/A: Abdomen Davol Inc/C R Bard 04/23/2025 [id number] / / [id number] Joint Bilateral: Knee [facility] REF IDPA IDPA [facility] MEDICARE ADVANTAGE [facility] MEDICARE ADVANTAGE Advance Directives For more information, please contact: [phone] * Full Code (Latest Code Status on File) Date Activated Date Inactivated Comments 12/09/2020 1:13 PM 12/11/2020 8:49 PM Care Teams Cutlet Maker Pork Relationship Specialty Start Date End Date Faisal Bailey DO [address] [place] [address] PCP - General 12/09/20 Trenton Amezuca MD [address] [place] [address] Referring Physician Gastroenterology 10/14/20 Colin Osborne MD [phone] [place] [address] Surgeon Colon and Rectal Surgery 11/09/20
--- OUTSIDE RECORDS SUMMARY | 2025-04-20 08:34 | XMS_ITS | Encounter Summary ---
Author Organization [facility] Address [facility] [place] [address] Care Team Providers Care Framer Name Role Phone Sera Miller Primary Care Provider [phone] Encounter Details Date Type Department Care Team (Late st Contact Info) Description 02/01/2019 Abstract SFL CONVERSION [address] [place] [address] , Generic Conversion, Social History Tobacco Use Types Packs/Day Years Used Date Smoking Tobacco: Never Assessed Comments Unknown Sex and Gender Information Value Date Recorded Sex Assigned at Not on file Legal Sex Female 10:20 PM ARBITRATOR Gender Identity Not on file Sexual Orientation Not on file documented as of this encounter Plan of Treatment Not on file documented as of this encounter Visit Diagnoses Not on filedocumented in this encounter Care Teams Framer Relationship Specialty Start Date End Date Sera Miller FNP [address] [place] [address] PCP - General NURSE PRACTITIONER 10/25/22 documented as of this encounter
--- NOTE | 2025-04-20 13:31 | WPDCARIOSTRE ---
Nuclear Stress Test INDICATIONS Indications: Chest pain PROCEDURE Procedure Performed: Myocardial Perf Spect-Multi Procedure: Patient underwent a lexiscan stress test and immediately was injected with 32.0 mCi of cardiolyte. Multiple tomographic images were obtained. These are of good quality. There is evidence of moderate size, moderate severity anterior perfusion defect with stress imaging. A separate resting images were obtained after patient was injected with 10.5 mCi of cardiolyte. Multiple tomographic images were obtained. These are of good quality. There is no perfusion defect with rest imaging. CONCLUSION Conclusion: 1. Abnormal myocardial perfusion imaging demonstrating a moderate size anterior perfusion defect during stress imaging consistent with reversible ischemia. 2. Left ventriculogram demonstrates normal measured ejection fraction of 66% with no wall motion abnormalities. 3. TID score 1.01 is not elevated.
== END 2025-04-20 08:23 | disposition home or self-care (01) ==
LOC: CHSIMG 08:24
PROVIDERS: PCP Family Medicine; Visit Provider Family Medicine
DX: R68.89 Other general symptoms and signs (principal); R07.9 Chest pain, unspecified
CPT/HCPCS: 78452; 93017; A9502

== ENCOUNTER 2025-06-10 10:25 | Outpatient (CLI) | payer MEDICARE, SELFPAY ==
--- NOTE | 2025-06-10 10:41 | ECHO_ITS ---
Patient Info Name: Berkley Wagoner Age: 84 years : 1940 Gender: Female Ht: 62 in Wt: 150 lbs BSA: 1.74 m2 HR: 45 bpm BP: 81 / 59 mmHg Heart Rhythm: Bradycardia Technical Quality: Fair Exam Date: 06/10/2025 10:52 AM Patient Status: O Admit Date: 06/10/2025 Exam Type: CA echo doppler color flow Complete two-dimensional, color flow and Doppler transthoracic echocardiogram is performed. Hse Specialist: Joyce Ruby Attending Provider: Rudi Hanna DO Summary 1. Complete two-dimensional, color flow and Doppler transthoracic echocardiogram is performed. 2. Left ventricular chamber dimension is normal. 3. Left ventricular systolic function is normal, estimated at 65-70. 4. The left ventricular diastolic function is abnormal. 5. E/e' 16 is elevated. 6. There is mild aortic valve sclerosis. 7. There is mild tricuspid valve regurgitation. 8. No pulmonary hypertension, estimated pulmonary arterial systolic pressure is 34 mmHg. History/Risk Factors Hypertension: Yes Left Ventricle E/e' 16 is elevated. Left ventricular chamber dimension is normal. Left ventricular systolic function is normal, estimated at 65-70. The left ventricular diastolic function is abnormal. Right Ventricle Right ventricular chamber dimension is normal. Right ventricular systolic function is normal and with normal TAPSE 2.1 cm. Left Atria Left atrial chamber dimension is normal. Right Atria Right atrial chamber dimension is normal. Aortic Valve The aortic valve is trileaflet. There is mild aortic valve sclerosis. There is no aortic valve stenosis. There is no aortic valve regurgitation. Pulmonic Valve There is no pulmonic regurgitation. Mitral Valve There is no mitral valve stenosis. There is no mitral valve regurgitation. Tricuspid Valve There is mild tricuspid valve regurgitation. No pulmonary hypertension, estimated pulmonary arterial systolic pressure is 34 mmHg. Pericardium/Pleural There is no pericardial effusion. Inferior Vena Cava Normal inferior vena cava with >50% collapse upon inspiration consistent with normal right atrial pressure, 5 mmHg. Aorta The aortic root size at the sinus of Valsalva is normal. Left Ventricular Outflow Tract Name Value Normal LVOT 2D LVOT Diameter 2.0 cm LVOT Doppler LVOT Peak Velocity 110 cm/s LVOT Peak Gradient 5 mmHg LVOT Mean Gradient 2 mmHg LVOT VTI 21 cm LVOT VTI/AV VTI Ratio 0.7 LVOT Stroke Volume 64 ml LVOT CO 2.7 l/min LVOT CI 1.5 l/min/m2 Pulmonic Valve Name Value Normal RVOT Doppler RVOT Peak Velocity 79 cm/s RVOT Peak Gradient 3 mmHg PV Doppler PV Peak Velocity 151 cm/s PV Peak Gradient 9 mmHg Mitral Valve Name Value Normal MV Diastolic Function MV E Peak Velocity 88 cm/s MV A Peak Velocity 81 cm/s MV E/A 1.1 MV Decel Time (PW) 282 ms MV Annular TDI MV E/e' (Septal) 19.9 MV E/e' (Lateral) 14.1 MV E/e' (Average) 17.0 Tricuspid Valve Name Value Normal TV Regurgitation Doppler TR Peak Velocity 267 cm/s TR Peak Gradient 29 mmHg Estimated PAP/RSVP RA Pressure 5 mmHg <=5 PA Systolic Pressure 34 mmHg <36 RV Systolic Pressure 34 mmHg <36 TV Annular TDI TV Lateral Brandie s' Velocity 12.4 cm/s >=9.5 Aorta Name Value Normal Ascending Aorta Ao Root Diameter (MM) 2.7 cm Ao Root Diam Index (MM) 1.5 cm/m2 Aortic Valve Name Value Normal AV Doppler AV Peak Velocity 145 cm/s AV Peak Gradient 8 mmHg AV Mean Gradient 4 mmHg AV VTI 30 cm AV Area (Cont Eq VTI) 2.2 cm2 >=3.0 AV Area (Cont Eq Gianni) 2.3 cm2 AV DI (Gianni) 0.76 AV Regurgitation 2D LVOT Area 3.0 cm2 Ventricles Name Value Normal LV Dimensions 2D/MM IVS Diastolic Thickness (2D) 0.8 cm 0.6-1.0 LVID Diastole (2D) 5.0 cm 3.8-5.2 LVIW Diastolic Thickness (2D) 0.8 cm 0.6-0.9 LVID Systole (2D) 3.4 cm 2.2-3.5 LVOT Diameter 2.0 cm LV Mass (2D Cubed) 137.39 g 67.00-162.00 LV Mass Index (2D Cubed) 79 g/m2 43-95 Relative Wall Thickness (2D) 0.32 <=0.42 LV Fractional Shortening/Ejection Fraction 2D/MM LV Fractional Shortening (2D) 32 % 27-45 LV EF (2D Teichholz) 60 % LV Diastolic Volume (4C MOD) 95 ml LV EF (4C MOD) 66 % LV Diastolic Volume (2C MOD) 66 ml LV EF (2C MOD) 62 % LV Diastolic Volume (BP MOD) 82 ml 46-106 LV Diastolic Volume Index (BP MOD) 47 ml/m2 29-61 LV Systolic Volume (BP MOD) 29 ml 14-42 LV Systolic Volume Index (BP MOD) 17 ml/m2 8-24 LV EF (BP MOD) 65 % 54-74 LV Diastolic Length (4C) 7.5 cm LV Systolic Length (4C) 6.1 cm LV Stroke Volume (4C MOD) 63 ml Atria Name Value Normal LA Dimensions LA Dimension (MM) 4.0 cm 2.7-3.8 LA Volume (4C A-L) 47 ml LA Volume (BP A-L) 48 ml RA Dimensions RA Area (4C) 15.4 cm2 <=18.0 Report Signatures
--- OUTSIDE RECORDS SUMMARY | 2025-06-10 12:21 | XMS_ITS | Clinical Summary ---
Author Organization [facility] Address [address] [place] [id number] Care Team Providers Care Procurement Engineer Name Role Phone Trenton Amezcua MD Unavailable + Colin Osborne MD Unavailable [phone] Faisal Bailey DO Primary Care Provider Allergies [...] 09/13/2023 Assessment & Plan (09/13/2023 12:39 PM MARKLOGIC DEVELOPER): Impression: Patient complains of throbbing to bilateral [...] 09/13/2023 Assessment & Plan (09/13/2023 12:38 PM MARKLOGIC DEVELOPER): Impression: Chronic with elevated blood pressure this [...] (11/11/2020): Added automatically from request for surgery [id number] Encounters Date Type Department Care Team Description 05/25/[address] [facility] Cardiology [address] [place] [address] Chuck Pascual MD from Last 3 Months Surgical History Surgery Date Site/Laterality Comments HYSTERECTOMY [...] on file Legal Sex Female 8:30 PM MARKLOGIC DEVELOPER Gender Identity Not on file Sexual Orientation Not on file Obstetrics History Last Filed Vital Signs Vital Sign Reading Time Taken Comments Blood Pressure 174/78 09/12/2023 11:18 AM MARKLOGIC DEVELOPER patient has not taken medication yet, QUALITY CONTROL CHEMIST made aware Pulse 76 09/12/2023 11:18 AM MARKLOGIC DEVELOPER Temperature 35.9 C (96.6 F) 01/11/2021 11:10 AM CDT Respiratory Rate 15 12/11/2020 12:3 9 PM CDT Oxygen Saturation 97% 09/12/2023 11: 18 AM MARKLOGIC DEVELOPER Inhaled Oxygen Concentration - - Weight 78 [...] 06/02/2020, 2018 Medical Devices Implanted Type Area Cvicu Rn Device Identifier Shelf Expiration Date Model / Serial / Lot Davol Inc/C R Bard [id number] Soft Mesh 6x6in Patch Knitted Flat Sheet Groin Hernia Square Mesh - [id number] Implanted:Qty: 1 on 12/09/2020 by Colin Osborne MD at [facility] Mesh N/A: Abdomen [employer] Inc/C R Bard 04/23/2025 [id number] / / [id number] Joint Bilateral: Knee Insurance [facility] MDCR HMO REF IDPA IDPA [facility] MEDICARE ADVANTAGE [facility] MEDICARE ADVANTAGE Advance Directives For more information, please contact: [phone] * Full Code (Latest Code Status on File) Date Activated Date Inactivated Comments 12/09/2020 1:13 PM 12/11/2020 8:49 PM Care Teams Procurement Engineer Relationship Specialty Start Date End Date Faisal Bailey DO [address] [place] [address] PCP - General 12/09/20 Trenton Amezcua MD [address] [place] [address] Referring Physician Gastroenterology 10/14/20 Colin Osborne MD [phone] [place] [address] Surgeon Colon and Rectal Surgery 11/09/20
== END 2025-06-10 10:26 | disposition home or self-care (01) ==
PROVIDERS: PCP Family Medicine; Visit Provider Internal Medicine Cardiovascular Disease
DX: R06.09 Other forms of dyspnea (principal); I35.8 Other nonrheumatic aortic valve disorders; I07.1 Rheumatic tricuspid insufficiency
CPT/HCPCS: 93306

== ENCOUNTER 2025-06-10 12:03 | Emergency (ER) | payer MEDICARE, SELFPAY ==
--- NOTE | ~2025-06-10 | XR_ITS ---
EXAMINATION: XR chest 2V, 06/10/2025 13:20 CDT HISTORY: dizziness COMPARISON: No comparisons available. Technique: 2 views obtained. Findings: The lungs are clear, no effusion. No pneumothorax. Heart is normal size. Mediastinal and hilar contours are within normal limits. Bony thorax no acute abnormality. Impression: No acute cardiopulmonary abnormality. Reviewed, dictated and finalized at location P. Impression: No acute cardiopulmonary abnormality.
[2025-06-10 12:04] VITALS: BP 128/58; PULSE 44; RESP 20; TEMP 36.3; O2SAT 100
--- NOTE | 2025-06-10 12:06 | ECG_ITS ---
Test Date: 2025-06-10 12:48:55 Measurements Intervals Umpire Rate: 47 P: 46 WA: 254 QRS: 46 QRSD: 138 T: 4 QT: 496 QTc: 442 Interpretive Statements SINUS BRADYCARDIA WITH FIRST DEGREE AV BLOCK RIGHT BUNDLE BRANCH BLOCK BASELINE ARTIFACT- I, II, III, AVR, AVR, AVL, AVF ABNORMAL ECG No previous ECG available for comparison Electronically Signed On 06-10-2025 14:13:52 CDT by Rudi Hanna D.O.
[2025-06-10 12:57] LABS: Hematocrit 33.9 % (37.0-47.0); Hemoglobin 10.6 g/dL (12.0-15.0); Immature Granulocyte Percent A 0.4 % (0-0.5); Lymphocytes Absolute Auto 0.82 K/mm3 (0.9-3.2); Mean Corpuscular HGB Conc 31.3 g/dl (32-36); Mean Corpuscular Hemoglobin 28.0 pg (26-34); Mean Corpuscular Volume 89.4 fl (80-100); Nucleated Red Blood Cells Absolute Auto 0.000 K/mm3 (0.0-0.012); Nucleated Red Blood Cells Perc 0.0 % (0.0-0.2); Platelet Count Result 290 k/mm3 (150-375); Red Blood Count 3.79 M/mm3 (4.2-5.4); White Blood Count 8.2 K/mm3 (4.5-10.0)
[2025-06-10 13:02] VITALS: BP 143/66; PULSE 50; RESP 11; O2SAT 100
[2025-06-10 13:13] LABS: Alanine Aminotransferase 21 U/L (6-35); Albumin Level 4.2 g/dL (3.5-5.1); Alkaline Phosphatase 101 U/L (38-126); Anion Gap 11 mmol/L (4-12); Aspartate Amino Transferase 37 U/L (14-36); Bilirubin,Total 0.7 mg/dL (0.2-1.3); Blood Urea Nitrogen 40 mg/dL (7-17); Calcium 9.3 mg/dL (8.4-10.2); Carbon Dioxide 25 mmol/L (22-30); Chloride 107 mmol/L (98-107); Estimated Glomerular Filt Rate 35; Glucose 98 mg/dL (65-110); Potassium 3.9 mmol/L (3.4-5.0); Sodium 143 mmol/L (137-145); Total Protein 7.7 g/dL (6.3-8.2)
--- OUTSIDE RECORDS SUMMARY | 2025-06-10 13:53 | XMS_ITS | Clinical Summary ---
Author Organization [facility] Address [address] [place] [address] Care Team Providers Care Supervisor Partial Denture Department Name Role Phone Sera Miller IT ADMINISTRATIVE ASSISTANT Primary Care Provider [phone] Allergies No known active allergies Medications MULTIPLE [...] % cream Triamcinolone Acetonide 0.1 % External [id number] ve 7 Active oxybutynin (DITROPAN) 5 MG tablet Take 1 tablet (5 mg total) by mouth 3 (three) times daily. 90 tablet 3 Active Active Problems Problem Noted Date Diagnosed Date Orthopedic aftercare 03/19/2023 Closed displaced fracture of right femoral neck 03/05/2023 Fracture of femoral neck, right, closed 03/05/20 23 Other dysphagia 12/10/2020 Overview (03/05/2023): Required esophageal dilation in 2019 Rectal prolapse 11/11/2020 Overview (03/05/2023): Added automatically from request for surgery [id number] Hypertension 12/15/2014 Family History Medical History Relation [...] place to sleep or slept in a detention (including now)? No 03/06/2023 Comments Unknown Sex and Gender Information Value Date Recorded Sex Assigned at Not on file Legal Sex Female 10:20 PM VAN LOADER Gender Identity Not on file Sexual Orientation [...] 07/26/2021, 02/26 COVID-19 Vaccine ( - season) 2025 08/07/2022, 07/26/2021, 10/19/2020, Additional history exists Influenza Adult (#1) 2025 06/02/2020, 06/04/20 19 Hepatitis A Vaccines Aged Out No long er eligible based on patient's age to complete this topic Meningococcal B Vaccine Aged Out No l onger eligible based on patient's age to complete this topic Meningococcal Vaccine Aged Out No cesario meka eligible based on patient's age to complete this topic RSV Immunizations Under 20 Months Aged Out No longer eligible based on patient's age to complete this topic Medical Devices Implanted Type Area Certified Composites Technician Device Identifier Shelf Expiration Date Model / Serial / Lot Head Depuy Self Centering Bi Polar 47 X 28 - [id number] Implanted:Qty : 1 on 03/05/2023 by Fracisco Horton MD at [facility] Hip Components Right: Femur DEPUY [id number] 10/25/2027 [id number] / / [id number] M-Spec Metal Femoral Head Implanted:Qty : 1 on 03/05/2023 by Fracisco Horton MD at [facility] Right: Femur [employer] 09/26/2027 1365-12-500 / / [id number] Femoral Stem 08/09 Taper Acits Duofix Hip Prothesis Cementless Implanted:Qty : 1 on 03/05/2023 by Fracisco Horton MD at [facility] Right: Femur [employer] [id number] 11/25/2031 1010-12-050 / / [id number] Insurance [facility] MEDICARE MEDICAID Advance Directives Documents on File Type Date Recorded Patient Teacher Learning Disabled Expl anation Advance Directives and Living Will 11/12/2017 12:00 AM POWER OF CLINIC SPECIALIST Advance Directives and Living Will 11/12/2017 12:00 AM POWER OF CLINIC SPECIALIST Advance Directives and Living Will 11/12/2017 12/18/2014 [...] Focused - Do NOT Intubate Care Teams Supervisor Partial Denture Department Relationship Specialty Start Date End Date Sera Miller, MELIA [address] [place] [address] PCP - General NURSE PRACTITIONER 10/25/22
--- OUTSIDE RECORDS SUMMARY | 2025-06-10 13:53 | XMS_ITS | Encounter Summary ---
Author Organization [facility] Address [facility] [place] [address] Care Team Providers Care Health Occupations Teacher Name Role Phone Sera Miller Primary Care Provider [phone] Encounter Details Date Type Department Care Team (Late st Contact Info) Description 02/01/2019 Abstract SFL CONVERSION [address] [place] [address] , Generic Conversion, Social History Tobacco Use Types Packs/Day Years Used Date Smoking Tobacco: Never Assessed Comments Unknown Sex and Gender Information Value Date Recorded Sex Assigned at Not on file Legal Sex Female 10:20 PM POPCORN MACHINE OPERATOR Gender Identity Not on file Sexual Orientation Not on file documented as of this encounter Plan of Treatment Not on file documented as of this encounter Visit Diagnoses Not on filedocumented in this encounter Care Teams Health Occupations Teacher Relationship Specialty Start Date End Date Sera Miller FNP [address] [place] [address] PCP - General NURSE PRACTITIONER 10/25/22 documented as of this encounter
--- OUTSIDE RECORDS SUMMARY | 2025-06-10 13:53 | XMS_ITS | Clinical Summary ---
Author Organization [facility] Address [address] [place] [id number] Care Team Providers Care Rn Tele Name Role Phone Trenton Amezcua MD Unavailable + Colin Osborne MD Unavailable [phone] Faisal Bailey DO Primary Care Provider Allergies [...] 09/13/2023 Assessment & Plan (09/13/2023 12:39 PM SHUTTLE VENEERING SUPERVISOR): Impression: Patient complains of throbbing to bilateral [...] 09/13/2023 Assessment & Plan (09/13/2023 12:38 PM SHUTTLE VENEERING SUPERVISOR): Impression: Chronic with elevated blood pressure this [...] (11/11/2020): Added automatically from request for surgery [id number] Encounters Date Type Department Care Team Description 05/25/[address] [facility] Medical Group Cardiology [address] [place] [address] Chuck Pascual MD from Last [...] on file Legal Sex Female 8:30 PM SHUTTLE VENEERING SUPERVISOR Gender Identity Not on file Sexual Orientation Not on file Obstetrics History Last Filed Vital Signs Vital Sign Reading Time Taken Comments Blood Pressure 174/78 09/12/2023 11:18 AM SHUTTLE VENEERING SUPERVISOR patient has not taken medication yet, ACCOUNT TECHNICIAN made aware Pulse 76 09/12/2023 11:18 AM SHUTTLE VENEERING SUPERVISOR Temperature 35.9 C (96.6 F) 01/11/2021 11:10 AM CDT Respiratory Rate 15 12/11/2020 12:3 9 PM CDT Oxygen Saturation 97% 09/12/2023 11: 18 AM SHUTTLE VENEERING SUPERVISOR Inhaled Oxygen Concentration - - Weight 78 [...] 06/02/2020, 2018 Medical Devices Implanted Type Area Broom Handle Dipper Device Identifier Shelf Expiration Date Model / Serial / Lot [employer]ol Inc/C R Bard [id number] Soft Mesh 6x6in Patch Knitted Flat Sheet Groin Hernia Square Mesh - [id number] Implanted:Qty: 1 on 12/09/2020 by Colin Osborne MD at [facility] Mesh N/A: Abdomen [employer]ol Inc/C R Bard 04/23/2025 [id number] / / [id number] Joint Bilateral: Knee Insurance [facility] MDCR HMO REF IDPA IDPA [facility] MEDICARE ADVANTAGE [facility] MEDICARE ADVANTAGE Advance Directives For more information, please contact: [phone] * Full Code (Latest Code Status on File) Date Activated Date Inactivated Comments 12/09/2020 1:13 PM 12/11/2020 8:49 PM Care Teams Rn Tele Relationship Specialty Start Date End Date Faisal Bailey DO [address] [place] [address] PCP - General 12/09/20 Trenton Amezcua MD [address] [place] [address] Referring Physician Gastroenterology 10/14/20 Colin Osborne MD [phone] [place] [address] Surgeon Colon and Rectal Surgery 11/09/20
[2025-06-10 14:22] VITALS: BP 159/87; PULSE 43; RESP 16; O2SAT 100
--- NOTE | 2025-06-10 14:59 | ED.DIZZY ---
HPI - Dizziness General Chief Complaint: Recheck/Abnormal Lab/Rx Stated Complaint: low BP, low HR, dizziness Time Seen by Provider: 06/10/25 14:10 Source: patient Mode of arrival: ambulatory Limitations: no limitations History of Present Illness HPI Narrative: Patient presents with concern for low BP and low HR that were appreciated while she was undergoing an outpatient echo. She was supine during this study but she doesn't know exactly what either her heart rate or blood pressure were exactly. She was still planning on going home despite this but then when she moved from seated to standing she became dizzy and this is why she presents. She doesn't describe any rotational/spinning sensation, only a sense of lightheadedness. She denies any issues now and states she was able to walk to the bathroom ok in the ED without having those symptoms or feeling like her gait was altered. She denies any chest pain or shortness of breath now (though had been short of breath earlier). No syncope, ear pain, tinnitus, hearing changes. No visual changes, blurred vision although she does report that she had experienced double vision before; not now as it seemed to resolve spontaneously. Doesn't know if it went away with closing/covering one eye, didn't try. No headache. Not still dizzy, not nauseated now. She is on losartan and spironolactone. Jacques has her on other medications as well. Echo was part of a work up given there is discussion of her proceeding with [facility]. Related Data Home Medications ?Medication ?Instructions ?Recorded ?Confirmed ?Last Taken ?Type multivitamin with minerals 1 tablet PO DAILY 07/19/21 05/21/25 10/04/23 History (Hair,Skin and Nails tablet) Prevagen 1 tab-cap DAILY 09/26/23 05/21/25 10/04/23 History cholecalciferol (vitamin D3) 25 25 mcg PO DAILY 09/26/23 05/21/25 10/04/23 History mcg (1,000 unit) tablet acetaminophen 325 mg tablet 650 mg PO Q6H PRN Pain (Scale 10/09/23 05/21/25 Unknown History (Tylenol) Score 1-3) ibuprofen 200 mg tablet 200 mg PO Q6H PRN Pain (Scale 10/09/23 05/21/25 Unknown History Score 4-6) aspirin 81 mg tablet,delayed 81 mg PO DAILY 05/21/25 05/21/25 Unknown History release Allergies Allergy/AdvReac Type Severity Reaction Status Date / Time No Known Allergies Allergy Verified 06/10/25 12:08 [facility] Past Medical History Medical History Closed displaced fracture of right femoral neck Muscle strain of right lower extremity Rectal prolapse Dysphagia Encounter for colonoscopy due to history of colonic polyp Hiatal hernia Peripheral neuropathy Chronic renal failure, stage 3 (moderate) Hypertension Surgical History Surgical History History of laparoscopic cholecystectomy 10/08/23 SAW History of hip surgery History of left knee surgery 01-12-2015 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 History of hysterectomy 05-02-2017 Family History Family History Father Diabetes mellitus Lung cancer Mother Acute myocardial infarction Social History Social History Smoking status: Never smoker Second hand tobacco smoke exposure: No Alcohol intake: never Substance use: never Substance use type: does not use Do You Feel Safe in your Home?: Yes Lack of Transportation: No Lack of Food: Never True Current Housing: I Have Housing Concerned About Future Housing: No Difficulty Paying Gas/Electric Bills: No Difficulty Paying for Meds: No Currently Unemployed: No Education: High School Diploma/GED Difficulty w/ Childcare or Family Care: No Living arrangements: alone Occupation/Education: retired Spiritual care concerns: No Exam Narrative: GENERAL: Well-appearing, well-nourished, and in no acute distress. HEAD: Normocephalic, atraumatic. EYES: Non injected, non icteric ENT: Nares clear, no rhinorrhea or epistaxis. Gross auditory acuity intact. NECK: Supple. No meningismus. CHEST: Speaking in full sentences. No respiratory distress. HEART: Bradycardic rate and rhythm. . ABDOMEN: Soft, nondistended. No rigidity or guarding. Not peritoneal EXTREMITIES: Normal range of motion. No lower extremity edema. SKIN: Warm, dry, no rash. NEURO: No focal deficits. Alert and oriented. Answering questions. Following commands. Normal speech without aphasia or dysarthria. PSYCH: Normal mood and affect. Course Vital Signs Vital signs: Vital Signs Temperature 97.3 F L 06/10/25 12:04 Pulse Rate 44 L 06/10/25 12:04 Respiratory Rate 20 06/10/25 12:04 Blood Pressure 128/58 L 06/10/25 12:04 Pulse Oximetry 100 06/10/25 12:04 Oxygen Delivery Room Air 06/10/25 12:04 Temperature 97.3 F L 06/10/25 12:04 Pulse Rate 50 L 06/10/25 15:57 Respiratory Rate 14 06/10/25 15:57 Blood Pressure 155/93 H 06/10/25 15:57 Pulse Oximetry 100 06/10/25 15:57 Oxygen Delivery Room Air 06/10/25 12:04 MDM - Dizziness MDM Narrative Medical decision making narrative: Patient presents because she states she had a low heart rate and low BP while obtaining outpatient echo. She still planned on going home but became dizzy. Had been supine during the echo and then dizziness occurred when moving from seated to standing. Her dizziness sounds consistent with an orthostatic etiology. In the emergency department she is afebrile with VS that show bradycardia. Initial BP with mildly low DBP but MAP 81mmHg; repeat is improved though HR persists. Historically intermittently bradycardic per review of EMR; also historically hypertensive which is what she subsequently is in the ED. Creatinine which shows evidence of JYOTI; 500cc IV fluids ordered. She has a normocytic anemia which is a 1.8 g drop from previous ; initial plan was to inquire to the patient about loose stools and perform a rectal exam and potentially perform CT abdomen pelvis in addition to shared decision making about obtaining CT brain. Patient however wants to leave and this otherwise does not appear to be an acute emergency. She does have Evidence of a UTI ; patient insistent she wants to go so unable to discuss with her or review cultures to guide therapy. Prescribed Macrobid. Did not receive IV fluids but able to tolerate PO. BNP mildly elevated but not to a degree to suggest acute heart failure especially given the reference range of the assay for patient's age. Orthostats were reviewed. Medical Records Attestation: I reviewed the patient's medical records. Medical records narrative: Cardiology clinic note from end of Apr 2025 reviewed: Assessment & Plan I10 - Essential (primary) hypertension Plan: Stable. Advise to maintain a low sodium diet. R07.9 - Chest pain, unspecified Plan: Discuss results of stress test. EKG now and discuss results. Discuss risks/benefits/alternative to LHC and she is agreeable to it. Refer to [facility] for LHC. Start aspirin 81 mg daily and Atorvastatin 10 mg daily. F/U 3 weeks. E78.5 - Hyperlipidemia, unspecified \ Plan: Discuss lab results including lipid panel with T. Chol 203, TG 153, LDL 131, normal TSH, CMP with BS 107, Cr 1.15/GFR 45, HbA1c 5.3%, normal CBC. Advise to maintain a low saturated fat diet. R94.39 - Abnormal result of other cardiovascular function study R06.09 - Other forms of dyspnea Plan: Obtain echo. R60.0 - Localized edema Stop HCTZ and KCl. Start Spironlactone 25 mg daily and Furosemide 20 mg daily. == ECHO performed earlier today: Summary 1. Complete two-dimensional, color flow and Doppler transthoracic echocardiogram is performed. 2. Left ventricular chamber dimension is normal. 3. Left ventricular systolic function is normal, estimated at 65-70. 4. The left ventricular diastolic function is abnormal. 5. E/e' 16 is elevated. 6. There is mild aortic valve sclerosis. 7. There is mild tricuspid valve regurgitation. 8. No pulmonary hypertension, estimated pulmonary arterial systolic pressure is 34 mmHg. Lab Data Attestation: I reviewed the patient's lab results. 06/10/25 12:49 06/10/25 12:49 Labs: Lab Results 06/10/25 06/10/25 Range/Units 12:49 15:32 WBC 8.2 (4.5-10.0) K/mm3 RBC 3.79 L (4.2-5.4) M/mm3 Hgb 10.6 L (12.0-15.0) g/dL Hct 33.9 L (37.0-47.0) % MCV 89.4 (80-100) fl MCH 28.0 (26-34) pg MCHC 31.3 L (32-36) g/dl RDW 14.4 (11.5-14.5) % Plt Count 290 (150-375) k/mm3 MPV 9.1 (7.4-10.4) fl Immature Gran % (Auto) 0.4 (0-0.5) % Neut % (Auto) 78.9 H (45.5-73.1) % Lymph % (Auto) 10.1 L (18.3-44.2) % [place] % (Auto) 5.6 (2.6-8.5) % Eos % (Auto) 4.3 (0-4.4) % Baso % (Auto) 0.7 (0.2-1.2) % Lymph # (Auto) 0.82 L (0.9-3.2) K/mm3 [place] # (Auto) 0.5 (0.1-0.6) K/mm3 Eos # (Auto) 0.4 H (0-0.3) K/mm3 Baso # (Auto) 0.1 (0.0-0.1) K/mm3 Abs Immat Gran (auto) 0.03 (0.00-0.031) K/mm3 Absolute Neuts (auto) 6.4 (1.3-6.7) K/mm3 Absolute Nucleated RBC 0.000 (0.0-0.012) K/mm3 Nucleated RBC % 0.0 (0.0-0.2) % Sodium 143 (137-145) mmol/L Potassium 3.9 (3.4-5.0) mmol/L Chloride 107 (98-107) mmol/L Carbon Dioxide 25 (22-30) mmol/L Anion Gap 11 (4-12) mmol/L BUN 40 H D (7-17) mg/dL Creatinine 1.43 H (0.7-1.0) mg/dL Estim Creat Clear Calc Not Reportable Estimated GFR 35 L (59 - ) Glucose 98 (65-110) mg/dL Calcium 9.3 (8.4-10.2) mg/dL Magnesium 2.1 (1.6-2.3) mg/dL Total Bilirubin 0.7 (0.2-1.3) mg/dL AST 37 H (14-36) U/L ALT 21 (6-35) U/L Alkaline Phosphatase 101 (38-126) U/L NT-Pro-B Natriuret Pep 200 H (19.9-100) pg/mL Total Protein 7.7 (6.3-8.2) g/dL Albumin 4.2 (3.5-5.1) g/dL Urine Color Yellow (Yellow) Urine Appearance Cloudy H (Clear) Urine pH 5.5 (5.0-9.0) Ur Specific [place] 1.010 (1.001-1.035) Urine Protein Negative (Negative) mg/dL Urine Glucose (UA) Negative (Negative) mg/dL Urine Ketones Negative (Negative) mg/dL Ur Blood (Man) Negative (Negative) Urine Nitrate Positive H (Negative) Urine Bilirubin Negative (Negative) Urine Urobilinogen 0.2 (<2.0) mg/dL Leukocyte Esterase Rfl 2+ H (Negative) ANTHONY/UL Urine RBC 0-2 (0-2) /hpf Urine WBC 11-20 H (0-3) /hpf Ur Squamous Epith Cells None seen (Few) /hpf Urine Bacteria 4+ H /hpf Urine Casts 0-2 Imaging Data Radiologist's impression: Impression: No acute cardiopulmonary abnormality. ECG Data EKG #1: Attestation: I personally reviewed and interpreted this ECG as follows: ECG completion date: 06/10/25 ECG completion time: 12:48 Prior ECG tracings: available for review (Previous EKG also shows sinus bradycardia with a first-degree AV block; rate was 52 at that time) Interpretation: Sinus bradycardia at a rate of 47 beats per minute. GA interval is prolonged at 254 milliseconds consistent with a first-degree AV block. The interval remains consistent throughout. QRS 138. QT/QTC 496/442. Good R-wave progression across the precordial leads. T-wave inversion in 3 but upright in contiguous inferior leads. There is also biphasic T-wave in V3, possibly due to lead placement. T-wave otherwise upright throughout the precordial leads V4 V5 and V6. Discharge Plan Discharge Clinical Impression: JYOTI (acute kidney injury), Dizziness, Normocytic anemia, UTI (urinary tract infection) Patient Disposition: Home Condition: Stable Instructions: Antibiotic Form, Acute Kidney Injury (DC), Dizziness (ED), Anemia (ED), Urinary Tract Infection in Older Adults (ED) Additional Instructions: As we discussed, I believe your symptoms might be due to a bit of dehydration although because you are able to drink water, reasonable to defer giving IV fluids. It is important to maintain your hydration though. In addition, your hemoglobin which are your red blood cells did drop a bit and I encourage you to follow-up with your primary care physician regarding this new anemia. Continue taking your medications as prescribed. He had evidence of urinary tract infection. Take the antibiotics as prescribed. Return to the emergency department any new or worsening symptoms. Patient Language: Welsh Prescriptions: New nitrofurantoin monohyd/m-cryst [Macrobid] 100 mg capsule 100 mg PO Q12H 3 Days Qty: 6 0RF Rx Instructions: must administer with a meal/food No Action multivitamin with minerals [Hair,Skin and Nails] Tablet 1 tablet PO DAILY aspirin 81 mg tablet,delayed release (DR/EC) 81 mg PO DAILY atorvastatin [Lipitor] 10 mg tablet 10 mg PO DAILY Qty: 30 5RF spironolactone 25 mg tablet 25 mg PO DAILY Qty: 30 5RF furosemide [Lasix] 20 mg tablet 20 mg PO QAM Qty: 30 5RF losartan 50 mg tablet See Rx Instructions .ROUTE .COMPLEX Qty: 90 3RF Dose Instruction: TAKE ONE TABLET BY MOUTH DAILY Rx Instructions: TAKE ONE TABLET BY MOUTH DAILY cholecalciferol (vitamin D3) 25 mcg (1,000 unit) Tablet 25 mcg PO DAILY Prevagen 1 tab-cap DAILY acetaminophen [Tylenol] 325 mg Tablet 650 mg PO Q6H PRN (Reason: Pain (Scale Score 1-3)) ibuprofen 200 mg Tablet 200 mg PO Q6H PRN (Reason: Pain (Scale Score 4-6)) Follow-up/Referrals: Faisal Bailey DO [Primary Care Provider, Family Practice] Rudi Hanna DO [Physician, Cardiology] 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
[2025-06-10 15:41] LABS: Add Urine Microscopic? YES; Appearance Urine Cloudy (Clear); Glucose Urine UA Negative (Negative); Leukocyte Esterase Ur 2+ LEU/UL (Negative); Nitrate Urine Positive (Negative); Non Pathogenic Casts 0-2; Specific Grav Ur 1.010 (1.001-1.035)
--- NOTE | 2025-06-10 15:50 | PC.NURSE ---
This RN went into pt. room to administer fluids. Pt. states I don't want anything else. I walked. I'm not dizzy. I feel fine. I just want to go home. Dr. Bhakta on the phone. Pt. agreeable to wait until Dr. Bhakta is notified before leaving.
[2025-06-10 15:52] LABS: Magnesium 2.1 mg/dL (1.6-2.3)
[2025-06-10 15:57] VITALS: BP 155/93; PULSE 50; RESP 14; O2SAT 100
[2025-06-10 16:01] LABS: NT Pro B Type Natriuretic Pept 200 pg/mL (19.9-100)
--- OUTSIDE RECORDS SUMMARY | 2025-06-10 16:34 | XMS_ITS | Clinical Summary ---
Author Organization [facility] Address [address] [place] [address] Care Team Providers Care Outside Medical Sales Representative Name Role Phone Trenton Amezcua MD Unavailable + Colin Osborne MD Unavailable [phone] Faisal Bailey DO Primary Care Provider Allergies [...] 09/13/2023 Assessment & Plan (09/13/2023 12:39 PM BANKRUPTCY JUDGE): Impression: Patient complains of throbbing to bilateral [...] 09/13/2023 Assessment & Plan (09/13/2023 12:38 PM BANKRUPTCY JUDGE): Impression: Chronic with elevated blood pressure this [...] (11/11/2020): Added automatically from request for surgery [id number] Encounters Date Type Department Care Team Description 05/25/2025 Telephone [facility] Medical Group Cardiology [address] [place] [address] Chuck Pascual MD from Last [...] on file Legal Sex Female 8:30 PM BANKRUPTCY JUDGE Gender Identity Not on file Sexual Orientation Not on file Obstetrics History Last Filed Vital Signs Vital Sign Reading Time Taken Comments Blood Pressure 174/78 09/12/2023 11:18 AM BANKRUPTCY JUDGE patient has not taken medication yet, LAMP REPLACER made aware Pulse 76 09/12/2023 11:18 AM BANKRUPTCY JUDGE Temperature 35.9 C (96.6 F) 01/11/2021 11:10 AM CDT Respiratory Rate 15 12/11/2020 12:3 9 PM CDT Oxygen Saturation 97% 09/12/2023 11: 18 AM BANKRUPTCY JUDGE Inhaled Oxygen Concentration - - Weight 78 [...] 06/02/2020, 2018 Medical Devices Implanted Type Area Reinforcement Maker Device Identifier Shelf Expiration Date Model / Serial / Lot [employer] Inc/C R Bard [id number] Soft Mesh 6x6in Patch Knitted Flat Sheet Groin Hernia Square Mesh - [id number] Implanted:Qty: 1 on 12/09/2020 by Colin Osborne MD at [facility] Mesh N/A: Abdomen [employer] Inc/C R Bard 04/23/2025 [id number] / / [id number] Joint Bilateral: Knee Insurance [facility] MDCR HMO REF IDPA IDPA [facility] MEDICARE ADVANTAGE [facility] MEDICARE ADVANTAGE Advance Directives For more information, please contact: [phone] * Full Code (Latest Code Status on File) Date Activated Date Inactivated Comments 12/09/2020 1:13 PM 12/11/2020 8:49 PM Care Teams Outside Medical Sales Representative Relationship Specialty Start Date End Date Faisal Bailey DO [address] [place] [address] PCP - General 12/09/20 Trenton Amezcua MD [address] [place] [address] Referring Physician Gastroenterology 10/14/20 Colin Osborne MD [phone] [place] [address] Surgeon Colon and Rectal Surgery 11/09/20
--- OUTSIDE RECORDS SUMMARY | 2025-06-10 16:34 | XMS_ITS | Clinical Summary ---
Author Organization [facility] Address [address] [place] [address] Care Team Providers Care Sales Promotion Manager Name Role Phone Sera Miller GIS TECHNICIAN Primary Care Provider [phone] Allergies No known active allergies Medications MULTIPLE [...] % cream Triamcinolone Acetonide 0.1 % External [id number] 7 Active oxybutynin (DITROPAN) 5 MG [...] (03/05/2023): Added automatically from request for surgery [id number] Hypertension 12/15/2014 Family History Medical History Relation [...] place to sleep or slept in a retirement (including now)? No 03/06/2023 Comments Unknown Sex and Gender Information Value Date Recorded Sex Assigned at Not on file Legal Sex Female 10:20 PM DIRECTOR OF CLINICAL SERVICES Gender Identity Not on file Sexual Orientation [...] this topic Medical Devices Implanted Type Area Poacher Operator Device Identifier Shelf Expiration Date Model / Serial / Lot Head Depuy Self Centering Bi Polar 47 X 28 - [id number] Implanted:Qty : 1 on 03/05/2023 by Fracisco Horton MD at [facility] Hip Components Right: Femur DEPUY [id number] 10/25/2027 [id number] / / [id number] M-Spec Metal Femoral Head Implanted:Qty : 1 on 03/05/2023 by Fracisco Horton MD at [facility] Right: Femur [employer] 09/26/2027 [id number] / / [id number] Femoral Stem 08/09 Taper Acits Duofix Hip Prothesis Cementless Implanted:Qty : 1 on 03/05/2023 by Fracisco Horton MD at [facility] Right: Femur [employer] [id number] 11/25/2031 1010-12-050 / / [id number] Insurance [facility] MEDICARE MEDICAID Advance Directives Documents on File Type Date Recorded Patient Cosmetologist Expl anation Advance Directives and Living Will 11/12/2017 12:00 AM POWER OF RESUME SPECIALIST Advance Directives and Living Will 11/12/2017 12:00 AM POWER OF RESUME SPECIALIST Advance Directives and Living Will 11/12/2017 [...] Focused - Do NOT Intubate Care Teams Sales Promotion Manager Relationship Specialty Start Date End Date Sera Miller, MELIA [address] [place] [address] PCP - General NURSE PRACTITIONER 10/25/22
--- OUTSIDE RECORDS SUMMARY | 2025-06-10 16:34 | XMS_ITS | Encounter Summary ---
Author Organization [facility] Address formerly [facility] [place] [address] Care Team Providers Care Tube And Rod Straightener Name Role Phone Sera Miller Primary Care Provider [phone] Encounter Details Date Type Department Care Team (Late st Contact Info) Description 02/01/2019 Abstract SFL CONVERSION [address] [place] [address] , Generic Conversion, Social History Tobacco Use Types Packs/Day Years Used Date Smoking Tobacco: Never Assessed Comments Unknown Sex and Gender Information Value Date Recorded Sex Assigned at Not on file Legal Sex Female 10:20 PM BENCH WORKER BINDING Gender Identity Not on file Sexual Orientation Not on file documented as of this encounter Plan of Treatment Not on file documented as of this encounter Visit Diagnoses Not on filedocumented in this encounter Care Teams Tube And Rod Straightener Relationship Specialty Start Date End Date Sera Miller FNP [address] [place] [address] PCP - General NURSE PRACTITIONER 10/25/22 documented as of this encounter
== END 2025-06-10 16:18 | disposition home or self-care (01) ==
PROVIDERS: Student in an Organized Health Care Education/Training Program; Emergency Provider Student in an Organized Health Care Education/Training Program; PCP Family Medicine
DX: N17.9 Acute kidney failure, unspecified (principal); N39.0 Urinary tract infection, site not specified; D64.9 Anemia, unspecified; R42 Dizziness and giddiness; R06.02 Shortness of breath; G62.9 Polyneuropathy, unspecified; I12.9 Hypertensive chronic kidney disease with stage 1 through stage 4 chronic kidney disease, or unspecified chronic kidney disease; N18.30 Chronic kidney disease, stage 3 unspecified; Z96.651 Presence of right artificial knee joint; Z90.49 Acquired absence of other specified parts of digestive tract; Z90.710 Acquired absence of both cervix and uterus; Z79.82 Long term (current) use of aspirin; Z79.899 Other long term (current) drug therapy; R00.1 Bradycardia, unspecified; I45.10 Unspecified right bundle-branch block; I44.0 Atrioventricular block, first degree
CPT/HCPCS: 36415; 71046; 80053; 81001; 83735; 83880; 85025; 87077; 87086; 87186; 93005; 93306; 99284

== ENCOUNTER 2025-06-22 01:28 | Day surgery (SDC) | payer MEDICARE, SELFPAY ==
[2025-06-19 10:22] VITALS: BMI 29.4
[2025-06-22] VITALS (16 sets, daily range): BP systolic 98–162; BP diastolic 53–78; PULSE 35–54; RESP 12–19; TEMP 36.6; O2SAT 93–100
--- OUTSIDE RECORDS SUMMARY | 2025-06-22 01:30 | XMS_ITS | Encounter Summary ---
Author Organization [facility] Address [facility] [place] [address] Care Team Providers Care Tax Compliance Manager Name Role Phone Sera Miller Primary Care Provider [phone] Encounter Details Date Type Department Care Team (Late st Contact Info) Description 02/01/2019 Abstract SFL CONVERSION [address] [place] [address] , Generic Conversion, Social History Tobacco Use Types Packs/Day Years Used Date Smoking Tobacco: Never Assessed Comments Unknown Sex and Gender Information Value Date Recorded Sex Assigned at Not on file Legal Sex Female 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
--- OUTSIDE RECORDS SUMMARY | 2025-06-22 01:30 | XMS_ITS | Clinical Summary ---
Author Organization [facility] Address [address] [place] [address] Care Team Providers Care Head Screen Worker Name Role Phone Trenton Amezcua MD Unavailable + Colin Osborne MD Unavailable [phone] Faisal Bailey DO Primary Care Provider Allergies [...] 09/13/2023 Assessment & Plan (09/13/2023 12:39 PM INPATIENT CODER): Impression: Patient complains of throbbing to bilateral [...] 09/13/2023 Assessment & Plan (09/13/2023 12:38 PM INPATIENT CODER): Impression: Chronic with elevated blood pressure this [...] (11/11/2020): Added automatically from request for surgery [id number] Encounters Date Type Department Care Team Description 05/25/[address] [facility] Medical Group Cardiology [address] [place] [address] Chuck Pascual MD from Last [...] on file Legal Sex Female 8:30 PM INPATIENT CODER Gender Identity Not on file Sexual Orientation Not on file Obstetrics History Last Filed Vital Signs Vital Sign Reading Time Taken Comments Blood Pressure 174/78 09/12/2023 11:18 AM INPATIENT CODER patient has not taken medication yet, OUTDOOR RECREATION SPECIALIST made aware Pulse 76 09/12/2023 11:18 AM INPATIENT CODER Temperature 35.9 C (96.6 F) 01/11/2021 11:10 AM CDT Respiratory Rate 15 12/11/2020 12:3 9 PM CDT Oxygen Saturation 97% 09/12/2023 11: 18 AM INPATIENT CODER Inhaled Oxygen Concentration - - Weight 78 [...] 06/02/2020, 2018 Medical Devices Implanted Type Area Roller Gold Leaf Device Identifier Shelf Expiration Date Model / Serial / Lot Davol Inc/C R Bard [id number] Soft Mesh 6x6in Patch Knitted Flat Sheet Groin Hernia Square Mesh - [id number] Implanted:Qty: 1 on 12/09/2020 by Colin Osborne MD at [facility] Mesh N/A: Abdomen Davol Inc/C R Bard 04/23/2025 [id number] / / [id number] Joint Bilateral: Knee Insurance [facility] MDCR HMO REF IDPA IDPA [facility] MEDICARE ADVANTAGE [facility] MEDICARE ADVANTAGE Advance Directives For more information, please contact: [phone] * Full Code (Latest Code Status on File) Date Activated Date Inactivated Comments 12/09/2020 1:13 PM 12/11/2020 8:49 PM Care Teams Head Screen Worker Relationship Specialty Start Date End Date Faisal Bailey DO [address] [place] [address] PCP - General 12/09/20 Trenton Amezcua MD [address] [place] [address] Referring Physician Gastroenterology 10/14/20 Colin Osborne MD [phone] [place] [address] Surgeon Colon and Rectal Surgery 11/09/20
[2025-06-22 08:55] LABS: Hematocrit 30.8 % (37.0-47.0); Hemoglobin 9.9 g/dL (12.0-15.0); Immature Granulocyte Percent A 0.3 % (0-0.5); Lymphocytes Absolute Auto 0.63 K/mm3 (0.9-3.2); Mean Corpuscular HGB Conc 32.1 g/dl (32-36); Mean Corpuscular Hemoglobin 27.8 pg (26-34); Mean Corpuscular Volume 86.5 fl (80-100); Nucleated Red Blood Cells Absolute Auto 0.000 K/mm3 (0.0-0.012); Nucleated Red Blood Cells Perc 0.0 % (0.0-0.2); Platelet Count Result 293 k/mm3 (150-375); Red Blood Count 3.56 M/mm3 (4.2-5.4); White Blood Count 6.8 K/mm3 (4.5-10.0)
--- NOTE | 2025-06-22 09:04 | WPDHPUPDATE1 ---
History and Physical Update Update Date/Time: 06/22/25 09:04 History and Physical has been reviewed, including an updated exam of the patient. There are NO changes in the patient's condition. Risks, benefits, and alternatives have been discussed and questions answered. Patient agrees to proceed with procedure.
--- NOTE | 2025-06-22 09:04 | WPDMODSED ---
Moderate Sedation Note-Pt Data Patient Data Allergies Allergy/AdvReac Type Severity Reaction Status Date / Time No Known Allergies Allergy Verified 06/22/25 08:48 Home Medications ?Medication ?Instructions ?Recorded ?Confirmed ?Type multivitamin with minerals 1 tablet PO DAILY 07/19/21 06/19/25 History (Hair,Skin and Nails tablet) Prevagen 1 tab-cap PO DAILY 09/26/23 06/19/25 History cholecalciferol (vitamin D3) 25 25 mcg PO DAILY 09/26/23 06/19/25 History mcg (1,000 unit) tablet acetaminophen 325 mg tablet 650 mg PO Q6H PRN Pain (Scale 10/09/23 06/19/25 History (Tylenol) Score 1-3) ibuprofen 200 mg tablet 200 mg PO Q6H PRN Pain (Scale 10/09/23 06/19/25 History Score 4-6) losartan 50 mg tablet See Rx Instructions .Route 10/22/24 06/22/25 Rx .COMPLEX #90 tabs aspirin 81 mg tablet,delayed 81 mg PO DAILY 05/21/25 06/22/25 History release atorvastatin 10 mg tablet (Lipitor) 10 mg PO DAILY #30 tabs 05/21/25 06/22/25 Rx furosemide 20 mg tablet (Lasix) 20 mg PO QAM #30 tabs 05/21/25 06/19/25 Rx spironolactone 25 mg tablet 25 mg PO DAILY #30 tabs 05/21/25 06/19/25 Rx Sedation/Anesthesia: No previous sedation/anesthesia problems (including family history). 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 History of hysterectomy 05-02-2017 Family History Family History Father Diabetes mellitus Lung cancer Mother Acute myocardial infarction Social History Social History Smoking status: Never smoker Second hand tobacco smoke exposure: No Alcohol intake: never Substance use: never Substance use type: does not use Do You Feel Safe in your Home?: Yes Lack of Transportation: No Lack of Food: Never True Current Housing: I Have Housing Concerned About Future Housing: No Difficulty Paying Gas/Electric Bills: No Difficulty Paying for Meds: No Currently Unemployed: No Education: High School Diploma/GED Difficulty w/ Childcare or Family Care: No Living arrangements: alone Occupation/Education: retired Spiritual care concerns: No Mod Sed Physical Exam Physical Exam Pre Procedural Exam: Normal: Lungs, Heart Size, Heart Rate and Heart Rhythm Hours since solid foods: 12 Hours since liquid intake: 12 Mallampati Classification: class II Internal Medicine - PN: Obj Da Vital Signs Vital Signs: Vital Signs - 24 hr 06/22/25 08:50 Temperature 36.6 C Pulse Rate 47 L Respiratory Rate 15 Blood Pressure 132/78 Pulse Oximetry 100 Oxygen Delivery Room Air Labs 06/22/25 08:46 06/22/25 08:46 Labs: Laboratory Results - last 24 hr 06/22/25 08:46 WBC 6.8 RBC 3.56 L Hgb 9.9 L Hct 30.8 L MCV 86.5 MCH 27.8 MCHC 32.1 RDW 13.8 Plt Count 293 MPV 8.7 Immature Gran % (Auto) 0.3 Neut % (Auto) 78.3 H Lymph % (Auto) 9.2 L [place] % (Auto) 6.4 Eos % (Auto) 4.8 H Baso % (Auto) 1.0 Lymph # (Auto) 0.63 L [place] # (Auto) 0.4 Eos # (Auto) 0.3 Baso # (Auto) 0.1 Abs Immat Gran (auto) 0.02 Absolute Neuts (auto) 5.4 Absolute Nucleated RBC 0.000 Nucleated RBC % 0.0 ASA Classification/Sedation ASA Classification/Sedation ASA Class: III Emergent: No Risks: Risks, benefits and alternatives explained and patient/family accepted plan for sedation. Patient re-evaluated immediately prior to sedation.
[2025-06-22 09:14] LABS: Anion Gap 7 mmol/L (4-12); Blood Urea Nitrogen 31 mg/dL (7-17); Calcium 8.5 mg/dL (8.4-10.2); Carbon Dioxide 23 mmol/L (22-30); Chloride 108 mmol/L (98-107); Estimated CRCL calculation 27 ml/min; Estimated Glomerular Filt Rate 39; Glucose 98 mg/dL (65-110); Potassium 4.3 mmol/L (3.4-5.0); Sodium 138 mmol/L (137-145)
--- NOTE | 2025-06-22 09:50 | P.PCNCC_ITS ---
Cardiac Cath Procedure Note Date of procedure:: 06/22/25 Performing physician:: CATHETERIZATION LABORATORY REPORT Procedure Date:06/22/2025 Referring Physician: Dr. Hanna Anesthesia: Versed and Fentanyl were ordered and given in my presence at 0926, procedure ended at 0947. Supervision of nurse, Madison Zamudio monitored moderate sedation with 2mg Versed and 100mcg Fentanyl was provided for 21 minutes. Pre-op Diagnosis: Abnormal stress test Post-op Diagnosis: Abnormal stress test Procedure(s): Left heart catheterization with coronary angiography Access Site: Right radial artery. Right common femoral artery. Brief History and Clinical Indications: All risks, benefits and alternatives to left heart catheterization with or without percutaneous coronary intervention was discussed at length with the megan ent. Risk of complications including but not limited to bleeding, infection, arrhythmia, stroke, worsening kidney function, blood loss, groin hematoma, limb loss, emergency coronary artery bypass grafting, and even were discussed with the patient and all questions were answered. The patient understood and wished to proceed. Time out called, patient name, date of , medical record number, allergies, procedure performed, identify Media Production Operator, patient and staff member concurred with accurate data, procedure carried on. Findings: LEFT HEART CATHETERIZATION FINDINGS: 1. Left main: The left main coronary artery is small and widely patent without any significant obstructive disease. 2. Left anterior descending: The LAD and the diagonal branches have mild luminal irregularities without any significant obstructive angiographic disease. The LAD is very tortuous. 3. Left circumflex: The left circumflex artery and the main marginal branches have mild luminal irregularities without any significant obstructive angiographic disease. 4. Right coronary artery: The RCA has mild luminal irregularities without any significant obstructive angiographic disease. The RCA is the dominant vessel. The RCA is very tortuous. 5. Left ventricle: A. End-diastolic pressure 15 mmHg. B. LV gram deferred. C. No significant gradient across aortic valve on catheter pullback. 6. Opening AO pressure 136/59 and closing AO pressure 113/53 7. Right iliofemoral angiogram: No angiographic disease in visualized portions of the right common femoral artery, right external common iliac arteries. Description of Procedure: Informed consent signed and placed in the chart. Patient transferred to pathology lab technician room. Prepped and draped in usual sterile fashion. 2% lidocaine injected subcutaneously in right wrist area. 22-gauge venipuncture catheter used to access the right radial artery with the Seldinger technique under ultrasound guidance. There was very minimal return of blood and given that the vessel is very small on the ultrasound, decision was made to transition to femoral approach procedure. The right groin was anesthetized with lidocaine subcutaneously. Under ultrasound and fluoroscopy guidance, a 5F micropuncture sheath was introduced and exchanged out for a 5F sheath J wire advanced under fluoroscopy. 5F JL4 diagnostic catheter engaged Left Main Coronary Artery. 5F JR4 diagnostic catheter crossed into the left ventricle to measure LVEDP and aortic valve gradients. After pull back, the JR4 diagnostic catheter engaged Right Coronary Artery. Multiple orthogonal angiogram obtained and reviewed Hemostasis of the wrist was achieved with manual pressure. A TR band was applied for extra precaution at the end of the case. The RCFA hemostasis was achieved with an AngioSeal Device. Assessment: Luminal irregularities Post Operative Condition: Stable No significant blood loss Disposition: Home Plan: The above findings were discussed with the referring physician. Continue aggressive medical therapy and risk factor modification. Chuck Pascual Interventional Cardiology
== END 2025-06-22 14:00 | disposition home or self-care (01) ==
PROVIDERS: PCP Family Medicine; Visit Provider Internal Medicine
PROC: 4A023N7 Measurement of Cardiac Sampling and Pressure, Left Heart, Percutaneous Approach (ICD-10-PCS; CPT 93452; principal; 2025-06-22 10:00)
DX: R94.39 Abnormal result of other cardiovascular function study (principal); I12.9 Hypertensive chronic kidney disease with stage 1 through stage 4 chronic kidney disease, or unspecified chronic kidney disease; N18.30 Chronic kidney disease, stage 3 unspecified; G62.9 Polyneuropathy, unspecified; Z79.1 Long term (current) use of non-steroidal anti-inflammatories (NSAID); Z79.82 Long term (current) use of aspirin; Z98.890 Other specified postprocedural states; Z90.49 Acquired absence of other specified parts of digestive tract; Z80.1 Family history of malignant neoplasm of trachea, bronchus and lung; Z82.49 Family history of ischemic heart disease and other diseases of the circulatory system
CPT/HCPCS: 36415; 80048; 85025; 93458; C1760; C1769; C1887; C1894; G0269; J1644; J2003; J2250; J3010; J7040

== ENCOUNTER 2025-06-29 07:25 | Emergency (ER) | payer MEDICARE, SELFPAY ==
[2025-06-29] VITALS (27 sets, daily range): BP systolic 105–178; BP diastolic 67–96; PULSE 39–60; RESP 10–26; TEMP 36.7; O2SAT 95–100
--- NOTE | ~2025-06-29 | US_ITS ---
EXAMINATION: US venous doppler UE RT DATE: 06/29/2025 09:03 INDICATION: Right upper extremity pain TECHNIQUE: Grayscale images without and with compression and Doppler images of the right upper extremity veins were obtained. COMPARISON: None. FINDINGS: The right internal jugular vein, subclavian vein, axillary vein, brachial vein, basilic vein, cephalic vein, radial vein, and ulnar vein are patent. IMPRESSION: 1. Patent right upper extremity veins. No evidence of venous thrombosis. Reviewed, dictated and finalized at location A. OTHERAPIST
--- NOTE | ~2025-06-29 | US_ITS ---
EXAMINATION: US arterial duplex UE RT DATE: 06/29/2025 09:03 INDICATION: Right upper limb pain post cardiac catheterization TECHNIQUE: Multiple grayscale and Doppler ultrasound images of the arteries of the right upper limb were obtained. COMPARISON: None FINDINGS: Biphasic waveforms with brisk systolic upstrokes at the right subclavian, axillary, brachial and radial arteries and triphasic waveform also with brisk systolic upstroke at the right ulnar artery. 10 x 8 x 2 mm anechoic hematoma without internal vascular flow on color Doppler in the superficial subcutaneous tissues overlying the right renal artery and the catheter access site. No pseudoaneurysm. IMPRESSION: 1. Very small subcutaneous hematoma at the right radial artery access site without pseudoaneurysm. Otherwise unremarkable ultrasound of the arteries of the right upper limb. Reviewed, dictated and finalized at location A. R HAND IMPRESSION: 1. Very small subcutaneous hematoma at the right radial artery access site with out pseudoaneurysm. Otherwise unremarkable ultrasound of the arteries of the ri t upper limb.
--- NOTE | ~2025-06-29 | XR_ITS ---
EXAMINATION: XR chest 2V DATE: 06/29/2025 09:19 INDICATION: Chest pain post cardiac catheterization TECHNIQUE: PA and lateral views of the chest were obtained. COMPARISON: Chest radiograph dated 06/10/2025 FINDINGS: Mild bibasilar opacities which could represent atelectasis or pneumonia. Mild right apical pleural-parenchymal scarring. No pulmonary edema, pleural effusion or pneumothorax. Mild cardiomegaly. Large hiatal hernia. Chronic exostosis extending between the anterior left fifth and sixth ribs. Mild thoracic kyphosis with mild to moderate spondylosis. Chronic mild T11 compression fracture. Cholecystectomy clips in right upper quadrant. Mild thoracic dextroscoliosis and mild to moderate thoracolumbar levoscoliosis. IMPRESSION: 1. Mild bibasilar opacities which could represent atelectasis or pneumonia. 2. Cardiomegaly. 2. Large hiatal hernia. Reviewed, dictated and finalized at location A. BUSINESS DEVELOPMENT
--- OUTSIDE RECORDS SUMMARY | 2025-06-29 07:29 | XMS_ITS | Clinical Summary ---
Author Organization [facility] Address [address] [place] [address] Care Team Providers Care Tablet Machine Operator Name Role Phone Sera Miller TOOL MAINTENANCE WORKER Primary Care Provider [phone] Allergies No known active allergies Medications MULTIPLE [...] % cream Triamcinolone Acetonide 0.1 % External [id number] 7 Active oxybutynin (DITROPAN) 5 MG [...] (03/05/2023): Added automatically from request for surgery [id number] Hypertension 12/15/2014 Family History Medical History Relation [...] place to sleep or slept in a mcfp (including now)? No 03/06/2023 Comments Unknown Sex and Gender Information Value Date Recorded Sex Assigned at Not on file Legal Sex Female 10:20 PM BROWNFIELD PROGRAM COORDINATOR Gender Identity Not on file Sexual Orientation [...] this topic Medical Devices Implanted Type Area Slasher Sawyer Device Identifier Shelf Expiration Date Model / Serial / Lot Head Depuy Self Centering Bi Polar 47 X 28 - [id number] Implanted:Qty : 1 on 03/05/2023 by Fracisco Horton MD at [facility] Hip Components Right: Femur DEPUY [id number] 10/25/2027 [id number] / / [id number] M-Spec Metal Femoral Head Implanted:Qty : 1 on 03/05/2023 by Fracisco Horton MD at [facility] Right: Femur [employer] 09/26/2027 1365-12-500 / / [id number] Femoral Stem 08/09 Taper Acits Duofix Hip Prothesis Cementless Implanted:Qty : 1 on 03/05/2023 by Fracisco Horton MD at [facility] Right: Femur [employer] CED[employer]IC [id number] 11/25/2031 1010-12-050 / / [id number] Insurance [facility] MEDICARE MEDICAID Advance Directives Documents on File Type Date Recorded Patient Route Vending Machine Servicer Expl anation Advance Directives and Living Will 11/12/2017 12:00 AM POWER OF FRUIT GROWER Advance Directives and Living Will 11/12/2017 12:00 AM POWER OF FRUIT GROWER Advance Directives and Living Will 11/12/2017 12/18/2014 [...] Focused - Do NOT Intubate Care Teams Tablet Machine Operator Relationship Specialty Start Date End Date Sera Miller, MELIA [address] [place] [address] PCP - General NURSE PRACTITIONER 10/25/22
--- OUTSIDE RECORDS SUMMARY | 2025-06-29 07:29 | XMS_ITS | Clinical Summary ---
Author Organization [facility] Address [facility] [place] [address] Care Team Providers Care Apartment Manager Name Role Phone Trenton Amezcua MD Unavailable + Colin Osborne MD Unavailable [phone] Faisal Bailey DO Primary Care Provider Allergies [...] 09/13/2023 Assessment & Plan (09/13/2023 12:39 PM BURR BENCH OPERATOR): Impression: Patient complains of throbbing to [...] 09/13/2023 Assessment & Plan (09/13/2023 12:38 PM BURR BENCH OPERATOR): Impression: Chronic with elevated blood pressure [...] (11/11/2020): Added automatically from request for surgery [id number] Encounters Date Type Department Care Team Description 06/24/2025 Orders Only [facility] Cardiology [address] [place] [address] Chuck Pascual MD 05/25/2025 Telephone [facility] Cardiology [address] [place] [address] Chuck Pascual MD from Last 3 Months [...] on file Legal Sex Female 8:30 PM BURR BENCH OPERATOR Gender Identity Not on file Sexual Orientation Not on file Last Filed Vital Signs Vital Sign Reading Time Taken Comments Blood Pressure 174/78 09/12/2023 11:18 AM BURR BENCH OPERATOR patient has not taken medication yet, HOME CARE PHYSICAL THERAPIST made aware Pulse 76 09/12/2023 11:18 AM BURR BENCH OPERATOR Temperature 35.9 C (96.6 F) 01/11/2021 11:10 AM CDT Respiratory Rate 15 12/11/2020 12:3 9 PM CDT Oxygen Saturation 97% 09/12/2023 11: 18 AM BURR BENCH OPERATOR Inhaled Oxygen Concentration - - Weight [...] Screening 11/08/1958 Pneumococcal vaccine 65+ (1 of 2 - PCV) 1960 Well Visit 65+ 2006 Zoster Vaccine (2 of 3) 05/20/2014 03/25/2014 Fall Risk Assessment 12/11/2021 12/11/2020 Influenza Vaccine (#1) 2025 06/02/2020, 2018 Medical Devices Implanted Type Area Furnace Setter Device Identifier Shelf Expiration Date Model / Serial / Lot Davol Inc/C R Bard [id number] Soft Mesh 6x6in Patch Knitted Flat Sheet Groin Hernia Square Mesh - [id number] Implanted:Qty: 1 on 12/09/2020 by Colin Osborne MD at [facility] Mesh N/A: Abdomen [employer]ol Inc/C R Bard 04/23/2025 [id number] / / [id number] Joint Bilateral: Knee Procedures Procedure Name Priority Date/Time Associated Diagnosis Comments CARDIOLOGY DOCUMENT SCAN Routine 06/22/2025 9:36 AM CDT from Last 3 Months Results * Cardiology Document Scan (06/22/2025 9:36 AM CDT) Anatomical Region Laterality Modality Other Chuck Pascual MD CV CARDIAC SERVICES PROCEDURES F inal Result from Last 3 Months Insurance [facility] MDCR HMO REF IDPA [facility] MEDICARE ADVANTAGE [facility] MEDICARE ADVANTAGE Advance Directives For more information, please contact: [phone] * Full Code (Latest Code Status on File) Date Activated Date Inactivated Comments 12/09/2020 1:13 PM 12/11/2020 8:49 PM Care Teams Apartment Manager Relationship Specialty Start Date End Date Faisal Bailey DO [address] [place] [address] PCP - General 12/09/20 Trenton Amezcua MD [address] [place] [address] Referring Physician Gastroenterology 10/14/20 Colin Osborne MD [phone] [place] [address] Surgeon Colon and Rectal Surgery 11/09/20
--- OUTSIDE RECORDS SUMMARY | 2025-06-29 07:29 | XMS_ITS | Encounter Summary ---
Author Organization [facility] Address [address] [place] [address] Care Team Providers Care Water Resources Engineer Name Role Phone Trenton Amezcua MD Unavailable + Colin Osborne MD Unavailable [phone] Faisal Bailey DO Primary Care Provider Encounter Details Date Type Department Care Team (Late st Contact Info) Description 06/24/2025 Orders Only [facility] Medical Group Cardiology [address] [place] [address] Chuck Pascual MD [address] [place] [address] Social History Tobacco Use Types Packs/Day Years [...] on file Legal Sex Female 8:30 PM SAGGER SOAK Gender Identity Not on file Sexual Orientation Not on file documented as of this encounter Plan of Treatment Not on file documented as of this encounter Procedures Procedure Name Priority Date/Time Associated Diagnosis Comments CARDIOLOGY DOCUMENT SCAN Routine 06/22/2025 9:36 AM CDT documented in this encounter Results * Cardiology Document Scan (06/22/2025 9:36 AM CDT) Anatomical Region Laterality Modality Other Chuck Pascual MD CV CARDIAC SERVICES PROCEDURES F inal Result documented in this encounter Visit Diagnoses Not on filedocumented in this encounter Care Teams Water Resources Engineer Relationship Specialty Start Date End Date Faisal Bailey DO [address] [place] [address] PCP - General 12/09/20 Trenton Amezcua MD [address] [place] [address] Referring Physician Gastroenterology 10/14/20 Colin Osborne MD [phone] [place] [address] Surgeon Colon and Rectal Surgery 11/09/20 documented as of this encounter
--- OUTSIDE RECORDS SUMMARY | 2025-06-29 07:29 | XMS_ITS | Encounter Summary ---
Author Organization [facility] Address [facility] [place] [address] Care Team Providers Care Clinical Product Specialist Name Role Phone Sera Miller Primary Care Provider [phone] Encounter Details Date Type Department Care Team (Late st Contact Info) Description 02/01/2019 Abstract SFL CONVERSION [address] [place] [address] , Generic Conversion, Social History Tobacco Use Types Packs/Day Years Used Date Smoking Tobacco: Never Assessed Comments Unknown Sex and Gender Information Value Date Recorded Sex Assigned at Not on file Legal Sex Female 10:20 PM HEDIS ANALYST Gender Identity Not on file Sexual Orientation Not on file documented as of this encounter Plan of Treatment Not on file documented as of this encounter Visit Diagnoses Not on filedocumented in this encounter Care Teams Clinical Product Specialist Relationship Specialty Start Date End Date Sera Miller FNP [address] [place] [address] PCP - General NURSE PRACTITIONER 10/25/22 documented as of this encounter
--- NOTE | 2025-06-29 07:38 | ECG_ITS ---
Test Date: 2025-06-29 07:56:17 Measurements Intervals [place] Rate: 43 P: 79 IA: 257 QRS: 50 QRSD: 138 T: 24 QT: 517 QTc: 439 Interpretive Statements SINUS BRADYCARDIA WITH FIRST DEGREE AV BLOCK WITH OCCASIONAL SUPRAVENTRICULAR PREMATURE COMPLEXES RIGHT BUNDLE BRANCH BLOCK [120+ ms QRS DURATION, UPRIGHT V1, 40+ ms S IN I/aVL/V4/V5/V6] Compared to ECG 06/10/2025 12:48:55 No significant changes Electronically Signed On 06-29-2025 09:40:29 MUSIC TYPOGRAPHER by Chuck Pascual M.D.
--- NOTE | 2025-06-29 08:00 | ED.UPPEXIN ---
HPI - Extremity Injury (Upper) General Chief Complaint: Extremity Injury, Upper Stated Complaint: right arm pain after heart cath last week Time Seen by Provider: 06/29/25 07:30 History of Present Illness HPI narrative: Patient had cardiac catheterization last week, since then has had pain to her right arm, no numbness or weakness, the pain goes all way up to her shoulder. Initially attempt at access through right radial artery was unsuccessful so went to right groin. Patient has no issues with her right groin. Related Data Home Medications ?Medication ?Instructions ?Recorded ?Confirmed ?Last Taken ?Type multivitamin with minerals 1 tablet PO DAILY 07/19/21 06/19/25 06/19/25 History (Hair,Skin and Nails tablet) Prevagen 1 tab-cap PO DAILY 09/26/23 06/19/25 10/04/23 History cholecalciferol (vitamin D3) 25 25 mcg PO DAILY 09/26/23 06/19/25 06/19/25 History mcg (1,000 unit) tablet acetaminophen 325 mg tablet 650 mg PO Q6H PRN Pain (Scale 10/09/23 06/19/25 Unknown History (Tylenol) Score 1-3) ibuprofen 200 mg tablet 200 mg PO Q6H PRN Pain (Scale 10/09/23 06/19/25 06/19/25 History Score 4-6) aspirin 81 mg tablet,delayed 81 mg PO DAILY 05/21/25 06/22/25 06/22/25 History release Allergies Allergy/AdvReac Type Severity Reaction Status Date / Time No Known Allergies Allergy Verified 06/29/25 07:27 Review of Systems Review of Systems: All systems reviewed & are unremarkable except as noted in HPI and below PMFSH Past Medical History Medical History Closed displaced fracture of right femoral neck Muscle strain of right lower extremity Rectal prolapse Dysphagia Encounter for colonoscopy due to history of colonic polyp Hiatal hernia Peripheral neuropathy Chronic renal failure, stage 3 (moderate) Hypertension Surgical History Surgical History History of laparoscopic cholecystectomy 10/08/23 SAW History of hip surgery History of left knee surgery 01-12-2015 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 History of hysterectomy 05-02-2017 Family History Family History Father Diabetes mellitus Lung cancer Mother Acute myocardial infarction Social History Social History Smoking status: Never smoker Second hand tobacco smoke exposure: No Alcohol intake: never Substance use: never Substance use type: does not use Do You Feel Safe in your Home?: Yes Lack of Transportation: No Lack of Food: Never True Current Housing: I Have Housing Concerned About Future Housing: No Difficulty Paying Gas/Electric Bills: No Difficulty Paying for Meds: No Currently Unemployed: No Education: High School Diploma/GED Difficulty w/ Childcare or Family Care: No Living arrangements: alone Occupation/Education: retired Spiritual care concerns: No Exam Narrative: EXAMINATION OF ORGAN SYSTEMS/BODY AREAS: Constitutional: Vital signs per nursing GENERAL:[No acute distress, non-toxic appearing.] HEAD: Normal with no signs of head trauma. EYES: EOMI, conjunctiva normal ENT: Hearing grossly intact LUNGS: Nonlabored breathing. HEART: [Regular rate and rhythm]; normal strong right radial pulse, good cap refill right hand with normal pulse ox to fingers ABD: [Soft], [nontender to palpation] EXT: Normal range of motion, some bruising to right wrist SKIN: some bruising to right wrist and groin NEURO: [Alert and oriented x 3. No gross focal sensory or strength deficits.] PSYCH: Normal affect Course Vital Signs Vital signs: Vital Signs Temperature 98.0 F 06/29/25 07:32 Pulse Rate 44 L 06/29/25 07:32 Respiratory Rate 16 06/29/25 07:32 Blood Pressure 105/71 06/29/25 07:32 Pulse Oximetry 100 06/29/25 07:32 Oxygen Delivery Room Air 06/29/25 07:32 Temperature 98.0 F 06/29/25 07:32 Pulse Rate 51 L 06/29/25 12:00 Respiratory Rate 16 06/29/25 11:46 Blood Pressure 165/87 H 06/29/25 08:47 Pulse Oximetry 100 06/29/25 12:15 Oxygen Delivery Room Air 06/29/25 07:32 MDM - Extremity Injury (Upper) MDM Narrative Medical decision making narrative: Patient presenting with right arm pain, it she thinks this started after having a cardiac catheterization a week ago, initial axis attempt through right radial then through groin. Pain seems to go up to her shoulder. No chest pain or shortness of breath. On exam, she has normal radial pulses bilaterally, does have some bruising and swelling to the right wrist but no significant tenderness, she has normal range of motion. Discussed this with her machinist/machine builder, who recommended ultrasound venous and arterial, and if everything is negative to follow-up outpatient. EKG is obtained here show the known bradycardia. EKG - 12-Lead: Performed at 0847. Interpreted by me. [Sinus rhythm]. Rate 47. [Normal] axis. MO-interval prolonged. QRS duration [normal]. QTc [normal]. [No ST segment elevation or depression]. [T-wave normal]. Impression: No EKG evidence of acute ischemia Initial EKG at 7:56 a.m. interpreted by myself, sinus bradycardia rate 43, MO 257, QRS 138, QTC 439, no ST elevations depressions or signs of acute ischemia or arrhythmia. Right bundle-branch block I did obtain labs which are unremarkable including 2 negative troponins. Creatinine baseline and so is her hemoglobin. I discussed this with both of her machinist/machine builder, the interventionalist Dr. Pascual and her regular machinist/machine builder Dr Hanna. Discussed with patient, she is happy to finally go, agrees to follow-up with her machinist/machine builder and with orthopedist if her arm continues to hurt. Lab Data 06/29/25 07:56 06/29/25 07:56 Labs: Lab Results 06/29/25 06/29/25 Range/Units 07:56 11:04 WBC 4.5 (4.5-10.0) K/mm3 RBC 3.45 L (4.2-5.4) M/mm3 Hgb 9.7 L (12.0-15.0) g/dL Hct 30.5 L (37.0-47.0) % MCV 88.4 (80-100) fl MCH 28.1 (26-34) pg MCHC 31.8 L (32-36) g/dl RDW 13.5 (11.5-14.5) % Plt Count 285 (150-375) k/mm3 MPV 8.8 (7.4-10.4) fl Immature Gran % (Auto) 0.2 (0-0.5) % Neut % (Auto) 66.0 (45.5-73.1) % Lymph % (Auto) 16.9 L (18.3-44.2) % Rolette % (Auto) 8.0 (2.6-8.5) % Eos % (Auto) 7.8 H (0-4.4) % Baso % (Auto) 1.1 (0.2-1.2) % Lymph # (Auto) 0.76 L (0.9-3.2) K/mm3 Rolette # (Auto) 0.4 (0.1-0.6) K/mm3 Eos # (Auto) 0.4 H (0-0.3) K/mm3 Baso # (Auto) 0.1 (0.0-0.1) K/mm3 Abs Immat Gran (auto) 0.01 (0.00-0.031) K/mm3 Absolute Neuts (auto) 3.0 (1.3-6.7) K/mm3 Absolute Nucleated RBC 0.000 (0.0-0.012) K/mm3 Nucleated RBC % 0.0 (0.0-0.2) % Sodium 139 (137-145) mmol/L Potassium 4.1 (3.4-5.0) mmol/L Chloride 108 H (98-107) mmol/L Carbon Dioxide 26 (22-30) mmol/L Anion Gap 5 (4-12) mmol/L BUN 30 H (7-17) mg/dL Creatinine 1.28 H (0.7-1.0) mg/dL Estim Creat Clear Calc 28 ml/min Estimated GFR 40 L (59 - ) Glucose 99 (65-110) mg/dL Calcium 8.7 (8.4-10.2) mg/dL Magnesium 2.1 (1.6-2.3) mg/dL Total Bilirubin 0.6 (0.2-1.3) mg/dL AST 26 (14-36) U/L ALT 17 (6-35) U/L Alkaline Phosphatase 91 (38-126) U/L Troponin I < 0.012 < 0.012 (0.000-0.034) ng/mL Total Protein 6.9 (6.3-8.2) g/dL Albumin 3.7 (3.5-5.1) g/dL Discharge Plan Discharge Clinical Impression: Arm pain, right Patient Disposition: Home Condition: Stable Instructions: Arm Pain (ED) Additional Instructions: Your labs today thankfully look normal, and this can of your arm does not show any blood clots or other cause of your symptoms. Please follow-up with your machinist/machine builder, and or with Orthopedics if you continue to have issues with your arm. You can also return to the emergency room for any worsening symptoms. Patient Language: Urdu Prescriptions: No Action multivitamin with minerals [Hair,Skin and Nails] Tablet 1 tablet PO DAILY aspirin 81 mg tablet,delayed release (DR/EC) 81 mg PO DAILY atorvastatin [Lipitor] 10 mg tablet 10 mg PO DAILY Qty: 30 5RF spironolactone 25 mg tablet 25 mg PO DAILY Qty: 30 5RF furosemide [Lasix] 20 mg tablet 20 mg PO QAM Qty: 30 5RF losartan 50 mg tablet See Rx Instructions .ROUTE .COMPLEX Qty: 90 3RF Dose Instruction: TAKE ONE TABLET BY MOUTH DAILY Rx Instructions: TAKE ONE TABLET BY MOUTH DAILY cholecalciferol (vitamin D3) 25 mcg (1,000 unit) Tablet 25 mcg PO DAILY Prevagen 1 tab-cap PO DAILY acetaminophen [Tylenol] 325 mg Tablet 650 mg PO Q6H PRN (Reason: Pain (Scale Score 1-3)) ibuprofen 200 mg Tablet 200 mg PO Q6H PRN (Reason: Pain (Scale Score 4-6)) Follow-up/Referrals: Faisal Bailey DO [Primary Care Provider, Family Practice] Miguel Corcoran MD [Physician, Orthopedics] - 2 Days
[2025-06-29 08:04] LABS: Hematocrit 30.5 % (37.0-47.0); Hemoglobin 9.7 g/dL (12.0-15.0); Immature Granulocyte Percent A 0.2 % (0-0.5); Lymphocytes Absolute Auto 0.76 K/mm3 (0.9-3.2); Mean Corpuscular HGB Conc 31.8 g/dl (32-36); Mean Corpuscular Hemoglobin 28.1 pg (26-34); Mean Corpuscular Volume 88.4 fl (80-100); Nucleated Red Blood Cells Absolute Auto 0.000 K/mm3 (0.0-0.012); Nucleated Red Blood Cells Perc 0.0 % (0.0-0.2); Platelet Count Result 285 k/mm3 (150-375); Red Blood Count 3.45 M/mm3 (4.2-5.4); White Blood Count 4.5 K/mm3 (4.5-10.0)
[2025-06-29] MEDS: MORPHINE SULFATE (*CRX) 4 MG/ML INJ 2 MG IV PUSH (08:04)
[2025-06-29 08:23] LABS: Alanine Aminotransferase 17 U/L (6-35); Albumin Level 3.7 g/dL (3.5-5.1); Alkaline Phosphatase 91 U/L (38-126); Anion Gap 5 mmol/L (4-12); Aspartate Amino Transferase 26 U/L (14-36); Bilirubin,Total 0.6 mg/dL (0.2-1.3); Blood Urea Nitrogen 30 mg/dL (7-17); Calcium 8.7 mg/dL (8.4-10.2); Carbon Dioxide 26 mmol/L (22-30); Chloride 108 mmol/L (98-107); Estimated CRCL calculation 28 ml/min; Estimated Glomerular Filt Rate 40; Glucose 99 mg/dL (65-110); Magnesium 2.1 mg/dL (1.6-2.3); Potassium 4.1 mmol/L (3.4-5.0); Sodium 139 mmol/L (137-145); Total Protein 6.9 g/dL (6.3-8.2)
--- NOTE | 2025-06-29 08:44 | ECG_ITS ---
Test Date: 2025-06-29 08:47:08 Measurements Intervals [place] Rate: 47 P: 0 [place]: 0 QRS: 70 QRSD: 134 T: 29 QT: 487 QTc: 435 Interpretive Statements SINUS BRADYCARDIA WITH FIRST-DEGREE AV BLOCK RIGHT BUNDLE BRANCH BLOCK [120+ ms QRS DURATION, UPRIGHT V1, 40+ ms S IN I/aVL/V4/V5/V6] Compared to ECG 06/29/2025 07:56:17 NO SIGNIFICANT CHANGES Electronically Signed On 06-29-2025 09:42:40 MACHINE SET UP by Chuck Pascual M.D.
[2025-06-29 09:17] LABS: Troponin I < 0.012 ng/mL (0.000-0.034)
[2025-06-29 11:43] LABS: Troponin I < 0.012 ng/mL (0.000-0.034)
== END 2025-06-29 12:47 | disposition home or self-care (01) ==
PROVIDERS: Emergency Provider Emergency Medicine; PCP Family Medicine
DX: M79.601 Pain in right arm (principal); I97.610 Postprocedural hemorrhage of a circulatory system organ or structure following a cardiac catheterization; I12.9 Hypertensive chronic kidney disease with stage 1 through stage 4 chronic kidney disease, or unspecified chronic kidney disease; N18.30 Chronic kidney disease, stage 3 unspecified; G62.9 Polyneuropathy, unspecified; Z96.651 Presence of right artificial knee joint; Z86.0100 Personal history of colon polyps, unspecified; Z90.710 Acquired absence of both cervix and uterus; Z79.899 Other long term (current) drug therapy; Z79.82 Long term (current) use of aspirin; R00.1 Bradycardia, unspecified; I45.10 Unspecified right bundle-branch block; I49.1 Atrial premature depolarization; I44.0 Atrioventricular block, first degree; X58.XXXA Exposure to other specified factors, initial encounter
CPT/HCPCS: 36415; 71046; 80053; 83735; 84484; 85025; 93005; 93931; 93971; 96374; 99284; J2270

== ENCOUNTER 2025-07-15 10:18 | Outpatient (CLI) | payer MEDICARE, SELFPAY ==
--- OUTSIDE RECORDS SUMMARY | 2025-07-15 14:38 | XMS_ITS | Encounter Summary ---
Author Organization [facility] Address [facility] [place] [address] Care Team Providers Care Bilingual Operator Name Role Phone Sera Miller Primary Care Provider [phone] Encounter Details Date Type Department Care Team (Late st Contact Info) Description 02/01/2019 Abstract SFL CONVERSION [address] [place] [address] , Generic Conversion, Social History Tobacco Use Types Packs/Day Years Used Date Smoking Tobacco: Never Assessed Comments Unknown Sex and Gender Information Value Date Recorded Sex Assigned at Not on file Legal Sex Female 10:20 PM ACCOUNT ENGINEER Gender Identity Not on file Sexual Orientation Not on file documented as of this encounter Plan of Treatment Not on file documented as of this encounter Visit Diagnoses Not on filedocumented in this encounter Care Teams Bilingual Operator Relationship Specialty Start Date End Date Sera Miller FNP [address] [place] [address] PCP - General NURSE PRACTITIONER 10/25/22 documented as of this encounter
--- OUTSIDE RECORDS SUMMARY | 2025-07-15 14:38 | XMS_ITS | Clinical Summary ---
Author Organization [facility] Address Formerly [facility], [address] [place] [address] Care Team Providers Care Mussel Farmer Name Role Phone Trenton Amezcua MD Unavailable + Colin Osborne MD Unavailable [phone] Faisal Bailey DO Primary Care Provider Allergies [...] 09/13/2023 Assessment & Plan (09/13/2023 12:39 PM FOREST RANGER): Impression: Patient complains of throbbing to bilateral [...] 09/13/2023 Assessment & Plan (09/13/2023 12:38 PM FOREST RANGER): Impression: Chronic with elevated blood pressure this [...] (11/11/2020): Added automatically from request for surgery [id number] Encounters Date Type Department Care Team Description 06/24/2025 Orders Only [facility] Cardiology [address] [place] [phone] Chuck Pascual MD 05/25/2025 Telephone [facility] Cardiology [address] [place] [address] Chuck Pascual MD from Last 3 Months [...] on file Legal Sex Female 8:30 PM FOREST RANGER Gender Identity Not on file Sexual Orientation Not on file Last Filed Vital Signs Vital Sign Reading Time Taken Comments Blood Pressure 174/78 09/12/2023 11:18 AM FOREST RANGER patient has not taken medication yet, LANDSCAPE SPECIALIST made aware Pulse 76 09/12/2023 11:18 AM FOREST RANGER Temperature 35.9 C (96.6 F) 01/11/2021 11:10 AM CDT Respiratory Rate 15 12/11/2020 12:3 9 PM CDT Oxygen Saturation 97% 09/12/2023 11: 18 AM FOREST RANGER Inhaled Oxygen Concentration - - Weight 78 [...] 06/02/2020, 2018 Medical Devices Implanted Type Area Photoengraving Sketch Maker Device Identifier Shelf Expiration Date Model / Serial / Lot [employer]/C R Bard [id number] Soft Mesh 6x6in Patch Knitted Flat Sheet Groin Hernia Square Mesh - [id number] Implanted:Qty: 1 on 12/09/2020 by Colin Osborne MD at [facility] Mesh N/A: Abdomen [employer]/C R Bard 04/23/2025 [id number] / / [id number] Joint Bilateral: Knee Procedures Procedure Name Priority Date/Time Associated Diagnosis Comments CARDIOLOGY DOCUMENT SCAN Routine 06/22/2025 9:36 AM CDT from Last 3 Months Results * Cardiology Document Scan (06/22/2025 9:36 AM CDT) Anatomical Region Laterality Modality Other Chuck Pascual MD CV CARDIAC SERVICES PROCEDURES F inal Result from Last 3 Months Insurance [facility] MDCR HMO REF [facility] Address: [address] [address] [place] [address] IDPA [facility] MEDICARE ADVANTAGE [facility] Address: [address] [address] [place] [address] [facility] MEDICARE ADVANTAGE [facility] Address: [address] [address] [place] [address] Advance Directives For more information, please contact: [phone] * Full Code (Latest Code Status on File) Date Activated Date Inactivated Comments 12/09/2020 1:13 PM 12/11/2020 8:49 PM Care Teams Mussel Farmer Relationship Specialty Start Date End Date Faisal Bailey DO [address] [place] [address] PCP - General 12/09/20 Trenton Amezcua MD [address] [place] [address] Referring Physician Gastroenterology 10/14/20 Colin Osborne MD [id number] [place] [address] Surgeon Colon and Rectal Surgery 11/09/20
--- OUTSIDE RECORDS SUMMARY | 2025-07-15 14:38 | XMS_ITS | Clinical Summary ---
Author Organization [facility] Address [address] [place] [address] Care Team Providers Care Maternity Floor Supervisor Name Role Phone Sera Miller FOAM RUBBER MIXER Primary Care Provider [phone] Allergies No known active allergies Medications MULTIPLE [...] % cream Triamcinolone Acetonide 0.1 % External [id number] 7 Active oxybutynin (DITROPAN) 5 MG [...] (03/05/2023): Added automatically from request for surgery [id number] Hypertension 12/15/2014 Family History Medical History Relation [...] place to sleep or slept in a alf (including now)? No 03/06/2023 Comments Unknown Sex and Gender Information Value Date Recorded Sex Assigned at Not on file Legal Sex Female 10:20 PM REJOINER Gender Identity Not on file Sexual Orientation [...] this topic Medical Devices Implanted Type Area Can Runner Device Identifier Shelf Expiration Date Model / Serial / Lot Head Depuy Self Centering Bi Polar 47 X 28 - [id number] Implanted:Qty : 1 on 03/05/2023 by Fracisco Horton MD at [facility] Hip Components Right: Femur DEPUY [id number] 10/25/2027 [id number] / / [id number] M-Spec Metal Femoral Head Implanted:Qty : 1 on 03/05/2023 by Fracisco Horton MD at [facility] Right: Femur [employer] 09/26/2027 [id number] / / [id number] Femoral Stem 08/09 Taper Acits Duofix Hip Prothesis Cementless Implanted:Qty : 1 on 03/05/2023 by Fracisco Horton MD at [facility] Right: Femur [employer] [id number] 11/25/2031 [id number] / / [id number] Insurance [facility] MEDICARE MEDICAID Advance Directives Documents on File Type Date Recorded Patient Uniform Attendant Expl anation Advance Directives and Living Will 11/12/2017 12:00 AM POWER OF SEALER AIRCRAFT Advance Directives and Living Will 11/12/2017 12:00 AM POWER OF SEALER AIRCRAFT Advance Directives and Living Will 11/12/2017 12/18/2014 [...] Focused - Do NOT Intubate Care Teams Maternity Floor Supervisor Relationship Specialty Start Date End Date Sera Miller, MELIA [address] [place] [address] PCP - General NURSE PRACTITIONER 10/25/22
--- NOTE | 2025-07-16 07:19 | WPDPFTINT ---
PFT Procedure Performed PFT Procedure Performed Spirometry with Pre/Post Bronchodilator Plethysmography (Lung Vol) Diffusing Cap (DLCO) Flow Vol Loop PFT Interpretation DOS: 07/15/2025 REQUESTING: Faisal Bailey DO REASON FOR TESTING: Shortness of breath PULMONARY FUNCTION TESTS Results are reliable and reproducible. Repeatability of spirometry FEV1 maneuver pre and post bronchodilator is Grade A. David Cotton Dust reference equations were used. Spirometry: The pre-bronchodilator FEV1 is 1.22 L, 67%. The pre-bronchodilator FVC is 1.80 L, 78%. The FEV1/FVC ratio is 68%. After bronchodilator, the FEV1 is 1.30 L, 72%, +6%. After bronchodilator, the FVC is 1.78 L. 78%, -3%. The FEV1/FVC ratio is 74%. Lung volumes: The total lung capacity is 3.64 L, 81%. The residual volume is 1.83 L, 93%. The RV/TLC is 50%. Airway resistance is increased. Diffusion: DLCO is 10.2, 57%. The DLCO/VA is 3.65, 111%. Flow volume loop: The flow volume loop shows mild coving of the expiratory limb. IMPRESSION: Spirometry shows a mild obstructive ventilatory impairment without significant response to bronchodilator, normal total lung capacity with mild air trapping, and moderate diffusion impairment that corrects for alveolar volume. Lack of response to bronchodilator should not preclude use if clinically indicated. No prior studies for comparison. Estrella Cedillo MD
== END 2025-07-15 10:19 | disposition home or self-care (01) ==
LOC: CHSCARD 10:19
PROVIDERS: PCP Family Medicine; Visit Provider Family Medicine
DX: R06.09 Other forms of dyspnea (principal)
CPT/HCPCS: 94060; 94726; 94729

== ENCOUNTER 2025-08-04 14:04 | Outpatient (NON) | payer MEDICARE, SELFPAY ==
[2025-08-04 14:23] LABS: Add Urine Microscopic? YES; Appearance Urine Clear (Clear); Glucose Urine UA Negative (Negative); Leukocyte Esterase Ur 1+ LEU/UL (Negative); Nitrate Urine Positive (Negative); Specific Grav Ur 1.010 (1.010-1.020)
== END 2025-08-04 14:05 | disposition home or self-care (01) ==
PROVIDERS: PCP Family Medicine; Visit Provider Family Medicine
DX: R50.9 Fever, unspecified (principal)
CPT/HCPCS: 81001; 87086; 87186